=== PATIENT | female | born 1935 | race Caucasian/White ===

== ENCOUNTER 2016-07-26 08:49 | Emergency (ER) | payer OTHER ==
[~2016-07-26] VITALS: Ht 160 cm; Wt 55.1 kg
[~2016-07-26 08:49] MED LIST: ACET-1256 PO; ELQ25 PO; MAGN400T6 PO; MISCCAP; POTA99TA PO
[2016-07-26 08:58] VITALS: TEMP 36.6; Ht 160 cm; Wt 55.1 kg
[2016-07-26 09:33] LABS: MANUAL MICROSCOPIC REQUIRED? YES; URINE APPEARANCE SL CLOUDY (CLEAR); URINE BILIRUBIN NEG (NEG); URINE COLOR RED; URINE NITRITE NEG (NEG); URINE SPECIFIC GRAVITY >= 1.030 (1.000-1.030); UROBILINOGEN NEG (NEG)
[2016-07-26] MEDS ORDERED: B-CO1CAP17 PO (09:37)
[2016-07-26 09:38] LABS: REVIEW REQ? NO
[2016-07-26 09:42] LABS: URINE BACTERIA NEG (NEG); URINE RBC >30 /hpf (0-4); URINE WBC >30 /hpf (0-5)
[2016-07-26 09:43] LABS: ZZUR CULT IF INDIC CLEAN CATCH YES
[2016-07-26 10:22] LABS: BASO % 0.2 %; BASO ABS # 0.02 K/uL (0-0.2); COMPLETE YES; EOS % 0.3 %; HEMATOCRIT 41.7 % (37-47); IG% 0.1 %; LYMPH % 11.1 %; MEAN CORPUSCULAR HGB CONC 34.3 g/dl (32-36); MEAN PLATELET VOLUME 10.4 fL (7.4-10.4); MONO % 9.4 %; NEUT % 78.9 %; PLATELET COUNT 141 K/uL (130-400); RED BLOOD COUNT 4.21 M/uL (4.2-5.4); WHITE BLOOD COUNT 8.98 K/uL (4.8-10.8)
[2016-07-26 10:31] LABS: PARTIAL THROMBOPLASTIN RATIO 1.2
[2016-07-26 10:46] LABS: BUN/CREATININE RATIO 26.1 (10-20); CALCIUM 9.5 mg/dl (8.5-10.1); CREATININE 0.95 mg/dl (0.60-1.20); POTASSIUM 4.2 mmol/L (3.5-5.1)
--- NOTE | 2016-07-26 10:49 | DIAGNOSTIC IMAGING REPORT ---
CT OF THE ABDOMEN AND PELVIS WITHOUT CONTRAST, STONE PROTOCOL CLINICAL HISTORY: Mid abdominal pain and hematuria. Evaluate for stone. COMPARISON STUDY: CT of the abdomen and pelvis June 23, 2011. TECHNIQUE: Helical axial images of the abdomen and pelvis were obtained without IV or oral contrast according to renal stone protocol. FINDINGS: The heart is moderately enlarged. No renal, ureteral or bladder calculi are present. There is no hydronephrosis or hydroureter. A 7 mm suspected left renal cyst is unchanged since prior CT of June 23, 2011. Evaluation of the remainder of the abdomen and pelvis is suboptimal on this unenhanced exam. Nodularity of the left adrenal gland is unchanged. There is a calcification within the right hepatic lobe. The spleen and pancreas are unremarkable. There is no evidence for a bowel obstruction. There is colonic diverticulosis without evidence for acute diverticulitis. The appendix is normal. There is no abscess or lymphadenopathy. No suspicious osseous lesion is present. IMPRESSION: 1. No urinary calculi or hydronephrosis. 2. No acute process within the abdomen or pelvis on unenhanced exam. Electronically signed by: Rui Luciano M.D. 07/26/2016 10:48 AM Dictated Date/Time: 07/26/2016 10:41 AM
[2016-07-26] MEDS ORDERED: SULF800T23 PO (11:15)
[2016-07-26 11:49] VITALS: BP 150/72; PULSE 83; O2SAT 95
--- NOTE | 2016-07-26 17:12 | EMERGENCY ROOM VISIT NOTE ---
History Report prepared by Chrissy: Jarred Rain Under the Supervision of: Dr. Forrest Vargas M.D. First contact with patient: 09:44 Chief Complaint: URINARY SYMPTOMS Stated Complaint: BLOOD IN URINE Nursing Triage Summary: pt c/o blood in urine last 3x she urinated today and last night. states had pain a couple days ago none now, except upon urination History of Present Illness The patient is an 81 year old female who presents to the Emergency Room with complaints of persistent hematuria since last night. The patient has noticed blood in her urine every time she has went since onset. She also complains of burning with urination. The patient had sharp midline abdominal pain two days ago, which resolved on its own. She has not had the abdominal pain since. She denies any fevers, vomiting, black or bloody stools. The patient has never experienced hematuria before. She does not have a history of kidney stones. The patient takes Eliquis daily for atrial fibrillation. The patient is in good health otherwise. She does not currently have any other complaints. Source of History: patient Onset: last night Position: other (urinary) Quality: other (hematuria) Timing: other (persistent) Associated Symptoms: + abdominal pain, + urinary symptoms, No fevers, No hematochezia, No melena, No vomiting Review of Systems See HPI for pertinent positives & negatives. A total of 10 systems reviewed and were otherwise negative. 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 Surgical Problems: (1) History of tonsillectomy and adenoidectomy (2) History of varicose vein ligation Family History No pertinent family history Social History Smoking Status: Never Smoker Alcohol Use: none Marital Status: Occupation Status: retired Current/Historical Medications Scheduled Apixaban (Eliquis), 2.5 MG PO BID Magnesium Oxide (Mag-Ox), 400 MG PO Q2D Probiotic Product (Acidophilus High-Potency), DAILY Sulfa/Trimethoprim (Bactrim Ds 800MG/160MG), 1 TAB PO BID Vitamin B Cmplx/Vitc/Folic Ac (Nephrocaps), 1 CAP PO DAILY Scheduled PRN Acetaminophen (Tylenol), 1 TAB PO bid-tid PRN for Pain Allergies Coded Allergies: No Known Allergies (Unverified , 07/26/16) Physical Exam Vital Signs Date Time Temp Pulse Resp B/P Pulse Ox O2 Delivery O2 Flow Rate FiO2 07/26/16 11:49 83 150/72 95 07/26/16 10:39 78 18 141/87 98 Room Air 07/26/16 08:58 36.6 87 18 97 Room Air Physical Exam Constitutional: Vital signs reviewed. Eyes: Pupils are equal round reactive to light. Conjunctiva are noninjected. ENT: Pharynx is clear without erythema or exudate. Mucous membranes are moist. Neck supple without meningeal signs. Respiratory: Clear to auscultation bilaterally. Breath sounds are equal bilaterally. Cardiovascular: Irregularly irregular rhythm, normal rate. No rubs or gallops. GI: Soft, nondistended and nontender. Bowel sounds are present. Musculoskeletal: No peripheral edema. No CVA tenderness. Integumentary: No cyanosis. Neurological: The patient is awake and alert. No focal deficits. Psychiatric: Normal affect. Medical Decision & Procedures ER Provider Diagnostic Interpretation: CT results as stated below per my review and the radiologist's interpretation: CT OF THE ABDOMEN AND PELVIS WITHOUT CONTRAST, STONE PROTOCOL CLINICAL HISTORY: Mid abdominal pain and hematuria. Evaluate for stone. COMPARISON STUDY: CT of the abdomen and pelvis June 23, 2011. TECHNIQUE: Helical axial images of the abdomen and pelvis were obtained without IV or oral contrast according to renal stone protocol. FINDINGS: The heart is moderately enlarged. No renal, ureteral or bladder calculi are present. There is no hydronephrosis or hydroureter. A 7 mm suspected left renal cyst is unchanged since prior CT of June 23, 2011. Evaluation of the remainder of the abdomen and pelvis is suboptimal on this unenhanced exam. Nodularity of the left adrenal gland is unchanged. There is a calcification within the right hepatic lobe. The spleen and pancreas are unremarkable. There is no evidence for a bowel obstruction. There is colonic diverticulosis without evidence for acute diverticulitis. The appendix is normal. There is no abscess or lymphadenopathy. No suspicious osseous lesion is present. IMPRESSION: 1. No urinary calculi or hydronephrosis. 2. No acute process within the abdomen or pelvis on unenhanced exam. Electronically signed by: Rui Luciano M.D. 07/26/2016 10:48 AM Dictated Date/Time: 07/26/2016 10:41 AM Laboratory Results 07/26/16 10:00 Red Blood Count 4.21, Mean Corpuscular Volume 99.0, Mean Corpuscular Hemoglobin 34.0, Mean Corpuscular Hemoglobin Concent 34.3, Mean Platelet Volume 10.4, Neutrophils (%) (Auto) 78.9, Lymphocytes (%) (Auto) 11.1, Monocytes (%) (Auto) 9.4, Eosinophils (%) (Auto) 0.3, Basophils (%) (Auto) 0.2, Neutrophils # (Auto) 7.08, Lymphocytes # (Auto) 1.00, Monocytes # (Auto) 0.84, Eosinophils # (Auto) 0.03, Basophils # (Auto) 0.02 07/26/16 10:00 Test 07/26/16 09:08 07/26/16 10:00 Urine Color RED Urine Appearance SL CLOUDY (CLEAR) Urine pH 6.0 (4.5-7.5) Urine Specific [place] >= 1.030 (1.000-1.030) Urine Protein 2+ (NEG) Urine Glucose (UA) NEG (NEG) Urine Ketones NEG (NEG) Urine Occult Blood 3+ (NEG) Urine Nitrite NEG (NEG) Urine Bilirubin NEG (NEG) Urine Urobilinogen NEG (NEG) Urine Leukocyte Esterase TRACE (NEG) Urine RBC >30 /hpf (0-4) Urine WBC >30 /hpf (0-5) Urine Epithelial Cells 5-10 /lpf (0-5) Urine Bacteria NEG (NEG) White Blood Count 8.98 K/uL (4.8-10.8) Red Blood Count 4.21 M/uL (4.2-5.4) Hemoglobin 14.3 g/dL (12.0-16.0) Hematocrit 41.7 % (37-47) Mean Corpuscular Volume 99.0 fL (80-100) Mean Corpuscular Hemoglobin 34.0 pg (25-34) Mean Corpuscular Hemoglobin Concent 34.3 g/dl (32-36) Platelet Count 141 K/uL (130-400) Mean Platelet Volume 10.4 fL (7.4-10.4) Neutrophils (%) (Auto) 78.9 % Lymphocytes (%) (Auto) 11.1 % Monocytes (%) (Auto) 9.4 % Eosinophils (%) (Auto) 0.3 % Basophils (%) (Auto) 0.2 % Neutrophils # (Auto) 7.08 K/uL (1.4-6.5) Lymphocytes # (Auto) 1.00 K/uL (1.2-3.4) Monocytes # (Auto) 0.84 K/uL (0.11-0.59) Eosinophils # (Auto) 0.03 K/uL (0-0.5) Basophils # (Auto) 0.02 K/uL (0-0.2) RDW Standard Deviation 46.7 fL (36.4-46.3) RDW Coefficient of Variation 12.9 % (11.5-14.5) Immature Granulocyte % (Auto) 0.1 % Immature Granulocyte # (Auto) 0.01 K/uL (0.00-0.02) Prothrombin Time 11.0 SECONDS (9.0-12.0) Prothromb Time International Ratio 1.0 (0.9-1.1) Activated Partial Thromboplast Time 29.9 SECONDS (21.0-31.0) Partial Thromboplastin Ratio 1.2 Anion Gap 11.0 mmol/L (3-11) Est Creatinine Clear Calc Drug Dose 37.1 ml/min Estimated GFR () 64.2 Estimated GFR (Non- 55.4 BUN/Creatinine Ratio 26.1 (10-20) Calcium Level 9.5 mg/dl (8.5-10.1) Total Bilirubin 1.4 mg/dl (0.2-1) Direct Bilirubin 0.3 mg/dl (0-0.2) Aspartate Amino Transf (AST/SGOT) 33 U/L (15-37) Alanine Aminotransferase (ALT/SGPT) 20 U/L (12-78) Alkaline Phosphatase 93 U/L (45-117) Total Protein 7.5 gm/dl (6.4-8.2) Albumin 4.0 gm/dl (3.4-5.0) Lipase 196 U/L (73-393) Laboratory results as reviewed by me. ED Course 0947: The patient was evaluated in room B8. A complete history and physical exam was performed. 1105: Talked about the results with her. She will follow up with her doctor in Urology. 1116: Upon reevaluation, the patient appeared to have improvement of her symptoms. I discussed tonight's findings with her. She verbalized agreement of the treatment plan. She was discharged home. Medical Decision This is an 81-year-old female presents with hematuria and dysuria. Differential diagnosis includes urinary tract infection, kidney stone, renal mass, anemia, bladder mass. I did perform a limited focused review of portions of the patient's old chart on the electronic medical record. The patient has had no recent pertinent visits to this hospital. I did evaluate the patient as noted above. Patient is presenting with gross hematuria. She was on Eliquis for atrial fibrillation. She also has dysuria. She did complain of abdominal pain which was transient. She has no tenderness or pain at this time. IV access was established. I did order and personally review the patient's urinalysis as described above. A urine culture was sent. I did order and review the patient's blood work as noted in the electronic medical record. She is not anemic. Renal function is normal. I did order a CT of the abdomen and pelvis. I did review the images myself as well as the radiology report as described above. There is no evidence of kidney stone. I did discuss the incidental findings with her. I did discuss the test results with her. I did recommend treatment with antibiotics for her urinary symptoms. Should she have persistent dysuria and hematuria she will need follow up with urology and was referred to Dr. Renae. She was also advised to follow closely with her regular physician as well. She was discharged in good condition with a prescription for Bactrim. Impression Primary Impression: Hematuria Additional Impressions: UTI (urinary tract infection) Anticoagulated Scribe Attestation The scribe's documentation has been prepared under my direct and personally reviewed by me in its entirety. I confirm that the note above accurately reflects all work, treatment, procedures, and medical decision making performed by me. Departure Information Dispostion Home / Self-Care Prescriptions Sulfa/Trimethoprim (Bactrim Ds 800MG/160MG) Tab 1 TAB PO BID, #14 TAB Prov: Forrest Vargas M.D. 07/26/16 Referrals Tres Baires M.D. (PCP) Forms HOME CARE DOCUMENTATION FORM, IMPORTANT VISIT INFORMATION Patient Instructions A Signature Page, ED Hematuria, My [facility], Urinary Tract Infection - [facility] Additional Instructions You have been examined and treated today on an emergency basis only. This is not a substitute for, or an effort to provide, complete comprehensive medical care. It is impossible to recognize and treat all injuries or illnesses in a single emergency department visit. It is therefore important that you follow up closely with your physician and Dr. Renae of urology. Call as soon as possible for an appointment. Return for worsening symptoms or if you develop fever, vomiting, black or tarry stools, blood in your stools or any other concerning symptoms. Problem Qualifiers Additional Impressions: UTI (urinary tract infection) Urinary tract infection type: acute cystitis Hematuria presence: with hematuria Qualified Codes: N30.01 - Acute cystitis with hematuria
[2017-02-09] MEDS ORDERED: APIX1TAB PO (10:13)
[2017-02-09] MEDS ORDERED: CALC500C70 PO (10:13)
== END 2016-07-26 11:50 | disposition home or self-care (01) ==
LOC: C.EDB 08:50
DX: N39.0 Urinary tract infection, site not specified (principal); I48.91 Unspecified atrial fibrillation; Z79.01 Long term (current) use of anticoagulants; I10 Essential (primary) hypertension; M81.0 Age-related osteoporosis without current pathological fracture; Z87.01 Personal history of pneumonia (recurrent); I36.1 Nonrheumatic tricuspid (valve) insufficiency; Z79.899 Other long term (current) drug therapy

== ENCOUNTER → 2016-08-11 | Outpatient (CLI) | payer OTHER ==
[~2016-08-11] MED LIST changes: +APIX1TAB PO; +B-CO1CAP17 PO; +CALC500C70 PO; -POTA99TA PO; +SULF800T23 PO
[2016-08-11 11:25] LABS: URINE APPEARANCE CLOUDY (CLEAR); URINE BILIRUBIN NEG (NEG); URINE COLOR YELLOW; URINE EPITHELIAL CELL AUTO 20-30 /lpf (0-5); URINE NITRITE NEG (NEG); URINE SPECIFIC GRAVITY 1.021 (1.000-1.030); UROBILINOGEN NEG (NEG)
[2016-08-11 11:30] LABS: MANUAL MICROSCOPIC REQUIRED? NO; REVIEW REQ? YES
== END | disposition home or self-care (01) ==
LOC: C.LABBC 08:06
PROVIDERS: ATTEND Internal Medicine
DX: R39.9 Unspecified symptoms and signs involving the genitourinary system (principal)

== ENCOUNTER → 2016-12-20 | Outpatient (CLI) | payer OTHER ==
[2016-12-20 11:54] LABS: ALT/SGPT 26 U/L (12-78); AST/SGOT 36 U/L (15-37); BLOOD UREA NITROGEN 24 mg/dl (7-18); BUN/CREATININE RATIO 22.2 (10-20); CALCIUM 8.8 mg/dl (8.5-10.1); CARBON DIOXIDE 29 mmol/L (21-32); CHLORIDE 106 mmol/L (98-107); GLUCOSE 90 mg/dl (70-99); POTASSIUM 4.5 mmol/L (3.5-5.1); SODIUM 142 mmol/L (136-145)
[2016-12-20 12:12] LABS: ALB/GLOB RATIO 1.1 (0.9-2); ALKALINE PHOSPHATASE 103 U/L (45-117)
--- NOTE | 2016-12-27 10:57 | CODING QUERY MEDICAL NECESSITY ---
CQSUPPORTING DIAGNOSIS NEEDED A supporting diagnosis is required for the test/procedure performed on this patient in order for us to be reimbursed by the patient's insurance. Please provide a supporting diagnosis for the following test/procedure listed below next to the test name along with your signature. *If there is no additional diagnosis for this patient that would support the following test/procedure please document that below next to the test/procedure. Test(s)/Procedure(s) that require a supporting diagnosis: LAURA 12/20/16 VITAMIN D TEST Provider Signature: Date: Thank you Graciela Manning Health Information Management Once completed, please kindly fax back to [phone] For questions please call [phone]
== END ==
LOC: C.LABBC 08:57
PROVIDERS: ATTEND Internal Medicine
DX: I10 Essential (primary) hypertension (principal); M81.0 Age-related osteoporosis without current pathological fracture

== ENCOUNTER → 2017-02-20 | Outpatient (CLI) | payer OTHER ==
[~2017-02-20] MED LIST changes: -ELQ25 PO; -SULF800T23 PO
[2017-02-20 11:10] LABS: BASO % 0.5 %; BASO ABS # 0.02 K/uL (0-0.2); COMPLETE YES; EOS % 2.1 %; HEMATOCRIT 42.2 % (37-47); IG% 0.2 %; LYMPH % 29.8 %; LYMPH ABS # 1.27 K/uL (1.2-3.4); MEAN CORPUSCULAR HEMOGLOBIN 33.7 pg (25-34); MEAN CORPUSCULAR HGB CONC 33.4 g/dl (32-36); MEAN PLATELET VOLUME 11.2 fL (7.4-10.4); MONO % 13.1 %; NEUT % 54.3 %; PLATELET COUNT 143 K/uL (130-400); RED BLOOD COUNT 4.18 M/uL (4.2-5.4); WHITE BLOOD COUNT 4.26 K/uL (4.8-10.8)
[2017-02-20 12:28] LABS: CHOLESTEROL/HDL RATIO 2.4
== END | disposition home or self-care (01) ==
LOC: C.LABBC 08:14
PROVIDERS: ATTEND Internal Medicine
DX: E55.9 Vitamin D deficiency, unspecified (principal)

== ENCOUNTER → 2017-02-28 | Day surgery (SDC) | payer OTHER ==
[2017-02-09 10:13] VITALS: Ht 161.3 cm; Wt 55.0 kg
[~2017-02-28] VITALS: Ht 161.3 cm; Wt 55.0 kg
[~2017-02-28] MED LIST changes: +500ML BSS 0.3ML EPI 1:1000PF IRRIG ONE; +ACETAMINOPHEN 325 MG TAB PO PRN; +AMVISC PLUS 0.8ML SYRINGE INT OCU ONE; +ATROPINE SULFATE 0.1 MG/ML 5ML SYR IV PRN; +AcetaZOLAMIDE 250 MG TAB PO SCH; +BETAXOLOL HCL 0.25% OP SUSP PER DROP CHARGE OPL SCH; +BRIMONIDINE TART 0.2% OP SOLN PER DROP CHARGE ONE; +BSS FLUSH ONE; +ENDOCOAT 0.85ML SYRINGE INT OCU ONE; +EpHEDrine SULFATE INJ 50 MG/ML AMP IV PRN; +EpINEphrine INJ 1MG/ML AMP 1 MG/ML AMP ONE; +LACTATED RINGER'S 1000ML 500 ML IV SCH; +LIDOCAINE 4% OP SOLN DROP CHARGE ONE; +LIDOCAINE 4% OP SOLN DROP CHARGE OPL SCH; +LIDOCAINE HCL 1% MPF 2 ML VIAL ONE; +MIDAZOLAM HCL 1 MG/ML 2ML VIAL ONE; +MIX: 4ML BSS 1ML EPI 1:1000 PF INSTIL ONE; +MOXIFLOXACIN OPH SOLN PER DROP CHARGE ONE; +OCUCOAT 1 ML SOLN IO ONE; +ONDANSETRON INJ 2 MG/ML 2 ML VIAL IV PRN; +POVIDONE-IODINE OP SOLN 30 ML BTL ONE; +PROPARACAINE 0.5% OP SOLN PER DROP CHARGE OPL SCH; +TOBRAMYCIN/DEXAMETHASONE OPH OINT PER APPLN CHARGE ONE
[2017-02-28] MEDS: PHENYLEPHRINE HCL 2.5% OP SOLN PER DROP CHARGE OPL SCH ×2 (06:36→06:42)
--- NOTE | 2017-02-28 06:36 | History & Physical Bridge - SC ---
H&P Re-Evaluation Bridge Note: I have examined the patient, reviewed the History & Physical and in the interval since the performance of the History & Physical I have noted the following changes of clinical significance: No changes noted
[2017-02-28] MEDS: TROPICAMIDE 1% OP SOLN PER DROP CHARGE OPL SCH ×2 (06:37→06:43)
[2017-02-28] MEDS: CYCLOPENTOLATE HCL 1% OP SOLN PER DROP CHARGE OPL SCH ×2 (06:38→06:44)
[2017-02-28] MEDS: MOXIFLOXACIN OPH SOLN PER DROP CHARGE OPL SCH ×2 (06:39→07:10)
--- NOTE | 2017-02-28 07:16 | Discharge Instructions-SurgCtr ---
Discharge Instructions Date of Service Feb 28, 2017. Visit Reason for Visit: Cataract Left Eye Discharge Discharge Diagnosis / Problem: lens implant left eye Discharge Goals Goal(s): Improve function Activity Recommendations Activity Limitations: resume your previous activity Lifting Limitations: no more than 10 pounds Exercise/Sports Limitations: gradually increase as tolerated May Resume Sexual Activity: when tolerated Shower/Bathe: tomorrow Driving or Machine Use: resume 1 day after discharge Anesthesia . Post Anesthesia Instructions: If you have had General Anesthesia or IV Sedation: * Do not drive today. * Resume driving when surgeon permits. * Do not make important decisions or sign legal documents today. * Call surgeon for: 1. Temperature elevations greater than 101 degrees F. 2. Uncontrollable pain. 3. Excessive bleeding. 4. Persistent nausea and vomiting. 5. Medication intolerance (nausea, vomiting or rash). * For nausea and vomiting use only clear liquids such as: tea, soda, bouillon until nausea subsides, then gradually increase diet as tolerated. * If you have any concerns or questions, call your surgeon's office. If physician is unavailable and it is an emergency, call 911 or go to the nearest emergency room. . Instructions / Follow-Up Instructions / Follow-Up ACTIVITY RECOMMENDATIONS: * Light activities. * Mild irritation and blurred vision are common for the first few days. * You may walk outside, read, watch television. * Redness around the white part of the eye is common. MEDICATIONS: Resume previous medications unless instructed otherwise by your surgeon. * Take white Diamox (Acetazolamide) tablet at 1 pm today. Start all eye drops at 1 pm today: * Eye drops (today and tomorrow): Prednisone - one drop in operative eye every 3 hours while awake Ofloxacin - one drop in operative eye every 3 hours while awake SPECIAL CARE INSTRUCTIONS: * Tape plastic shield over eye to sleep at night. Call your doctor at with any concerns or problems. FOLLOW UP VISIT: Follow-up with Dr Wolfe at [place] office as scheduled. Diet Recommendations Home Diet: no limitations Procedures Procedures Performed: cataract extraction with lens implant Pending Studies Studies pending at discharge: no Medical Emergencies . Who to Call and When: Medical Emergencies: If at any time you feel your situation is an emergency, please call 911 immediately. . Non-Emergent Contact Non-Emergency issues call your: Pantomimist Call Non-Emergent contact if: your pain is not controlled [phone] . . "Provider Documentation" section prepared by Ivan Wolfe. .
[2017-02-28 07:20] VITALS: BP 137/72; PULSE 62; TEMP 36.5; O2SAT 96
--- NOTE | 2017-02-28 07:21 | [facility] Operative Report ---
Operative Report Date of Service Feb 28, 2017. Operative Report 1. PREOPERATIVE DIAGNOSIS: Senile cortical cataract, left eye. 2. POSTOPERATIVE DIAGNOSIS: Senile cortical cataract, left eye. 3. PROCEDURE: Phacoemulsification of left cataract with posterior chamber lens implant, type Bausch [employer] Lomb, model MI60L, power +22.50 diopters. ANESTHESIA: Local standby. SURGEON: Dr. Wolfe. COMPLICATIONS: None. OPERATING TIME: 10 minutes. 4. OPERATION AND FINDINGS: DESCRIPTION OF PROCEDURE: The left pupil was dilated. The anesthetic was administered using a topical technique. The left eye was prepped and draped. A speculum was placed. A clear corneal incision was formed. The chamber was filled with Amvisc Plus and Endocoat. Epinephrine solution was used. A paracentesis was placed. A capsulorrhexis was performed. The nucleus was hydrodissected. The lens was removed with phacoemulsification. Time was 3.41 seconds. The aspiration unit was used to remove the cortex. The capsule was filled with Amvisc Plus. The lens implant was folded and placed into the capsule. An astigmatic incision was placed at the limbus directly across from the original incision. The incisions were hydrated. The Amvisc was aspirated. The wounds were secure. The chamber was deep. The pupil was round. Brimonidine, TobraDex ointment and Vigamox solution were placed. The speculum was removed. The patient was returned to the Recovery Room in stable condition. I attest to the content of the Intraoperative Record and any orders documented therein. Any exceptions are noted below. The scribe's documentation has been prepared in my presence, under my direction and personally reviewed by me in its entirety. I confirm that the note above accurately reflects all work, treatment, procedures, and medical decision making performed by me. I personally scribed for Ivan Wolfe M.D. (JAREN) on 02/28/17 at 07:21. Electronically submitted by Tatiana Mcnulty ([email or web address]).
--- NOTE | 2017-02-28 07:52 | Anesthesiology Progress Note ---
Anesthesia Post Op Note Date & Time Feb 28, 2017 at 07:51 Vital Signs Pain Intensity: 0 Vital Signs Past 12 Hours Date Time Temp Pulse Resp B/P (MAP) Pulse Ox O2 Delivery O2 Flow Rate FiO2 02/28/17 07:20 36.5 62 12 137/72 (93) 96 Room Air 02/28/17 06:28 36.4 53 16 143/81 (101) 97 Room Air Notes Mental Status: alert / awake / arousable, participated in evaluation Pt Amnestic to Procedure: Yes Nausea / Vomiting: adequately controlled Pain: adequately controlled Airway Patency, RR, SpO2: stable & adequate BP & HR: stable & adequate Hydration State: stable & adequate Anesthetic Complications: no major complications apparent
== END | disposition home or self-care (01) ==
LOC: X.SURG 06:14
PROVIDERS: ATTEND Specialist
DX: H25.12 Age-related nuclear cataract, left eye (principal)

== ENCOUNTER → 2017-03-21 | Day surgery (SDC) | payer OTHER ==
[2017-03-12 09:26] VITALS: Ht 161.3 cm; Wt 55.0 kg
[~2017-03-21] VITALS: Ht 161.3 cm; Wt 55.0 kg
[~2017-03-21] MED LIST changes: -BETAXOLOL HCL 0.25% OP SUSP PER DROP CHARGE OPL SCH; +BETAXOLOL HCL 0.25% OP SUSP PER DROP CHARGE OPR SCH; -LIDOCAINE 4% OP SOLN DROP CHARGE OPL SCH; +LIDOCAINE 4% OP SOLN DROP CHARGE OPR SCH; -ONDANSETRON INJ 2 MG/ML 2 ML VIAL IV PRN; -PROPARACAINE 0.5% OP SOLN PER DROP CHARGE OPL SCH; +PROPARACAINE 0.5% OP SOLN PER DROP CHARGE OPR SCH
[2017-03-21] MEDS: PHENYLEPHRINE HCL 2.5% OP SOLN PER DROP CHARGE OPR SCH ×2 (06:45→06:50)
[2017-03-21] MEDS: TROPICAMIDE 1% OP SOLN PER DROP CHARGE OPR SCH ×2 (06:46→06:51)
[2017-03-21] MEDS: CYCLOPENTOLATE HCL 1% OP SOLN PER DROP CHARGE OPR SCH ×2 (06:47→06:52)
[2017-03-21] MEDS: MOXIFLOXACIN OPH SOLN PER DROP CHARGE OPR SCH ×2 (06:48→06:58)
--- NOTE | 2017-03-21 07:34 | Discharge Instructions-SurgCtr ---
Discharge Instructions Date of Service Mar 21, 2017. Visit Reason for Visit: Cataract Right Eye Discharge Discharge Diagnosis / Problem: lens implant right eye Discharge Goals Goal(s): Improve function Activity Recommendations Activity Limitations: resume your previous activity Lifting Limitations: no more than 10 pounds Exercise/Sports Limitations: gradually increase as tolerated May Resume Sexual Activity: when tolerated Shower/Bathe: tomorrow Driving or Machine Use: resume 1 day after discharge Anesthesia . Post Anesthesia Instructions: If you have had General Anesthesia or IV Sedation: * Do not drive today. * Resume driving when surgeon permits. * Do not make important decisions or sign legal documents today. * Call surgeon for: 1. Temperature elevations greater than 101 degrees F. 2. Uncontrollable pain. 3. Excessive bleeding. 4. Persistent nausea and vomiting. 5. Medication intolerance (nausea, vomiting or rash). * For nausea and vomiting use only clear liquids such as: tea, soda, bouillon until nausea subsides, then gradually increase diet as tolerated. * If you have any concerns or questions, call your surgeon's office. If physician is unavailable and it is an emergency, call 911 or go to the nearest emergency room. . Instructions / Follow-Up Instructions / Follow-Up ACTIVITY RECOMMENDATIONS: * Light activities. * Mild irritation and blurred vision are common for the first few days. * You may walk outside, read, watch television. * Redness around the white part of the eye is common. MEDICATIONS: Resume previous medications unless instructed otherwise by your surgeon. * Take white Diamox (Acetazolamide) tablet at 1 pm today. Start all eye drops at 1 pm today: * Eye drops (today and tomorrow): Prednisone - one drop in operative eye every 3 hours while awake Ofloxacin - one drop in operative eye every 3 hours while awake SPECIAL CARE INSTRUCTIONS: * Tape plastic shield over eye to sleep at night. Call your doctor at with any concerns or problems. FOLLOW UP VISIT: Follow-up with Dr Wolfe at [place] office as scheduled. Diet Recommendations Home Diet: no limitations Procedures Procedures Performed: cataract extraction with lens implant Pending Studies Studies pending at discharge: no Medical Emergencies . Who to Call and When: Medical Emergencies: If at any time you feel your situation is an emergency, please call 911 immediately. . Non-Emergent Contact Non-Emergency issues call your: Supervisory Cbp Officer Call Non-Emergent contact if: your pain is not controlled [phone] . . "Provider Documentation" section prepared by Ivan Wolfe. .
--- NOTE | 2017-03-21 07:37 | [facility] Operative Report ---
Operative Report Date of Service Mar 21, 2017. Operative Report 1. PREOPERATIVE DIAGNOSIS: Senile Cortical cataract, right eye. 2. POSTOPERATIVE DIAGNOSIS: Senile Cortical cataract, right eye. 3. PROCEDURE: Phacoemulsification of right cataract with posterior chamber lens implant, type Bausch [employer] Lomb, model MI60L, power +21.0 diopters. ANESTHESIA: Local standby. SURGEON: Dr. Wolfe. COMPLICATIONS: None. OPERATING TIME: 10 minutes. 4. OPERATION AND FINDINGS: DESCRIPTION OF PROCEDURE: The right pupil was dilated. The anesthetic was administered using a topical technique. The right eye was prepped and draped. A speculum was placed. A clear corneal incision was formed. The chamber was filled with Amvisc Plus and Endocoat. Epinephrine solution was used. A paracentesis was placed. A capsulorrhexis was performed. The nucleus was hydrodissected. The lens was removed with phacoemulsification. Time was 3.44 seconds. The aspiration unit was used to remove the cortex. The capsule was filled with Amvisc Plus. The lens implant was folded and placed into the capsule. The incision was hydrated. The Amvisc was aspirated. The wound was secure. The chamber was deep. The pupil was round. Brimonidine, TobraDex ointment and Vigamox solution were placed. The speculum was removed. The patient was returned to the Recovery Room in stable condition. I attest to the content of the Intraoperative Record and any orders documented therein. Any exceptions are noted below. The scribe's documentation has been prepared in my presence, under my direction and personally reviewed by me in its entirety. I confirm that the note above accurately reflects all work, treatment, procedures, and medical decision making performed by me. I personally scribed for Ivan Wolfe M.D. (JAREN) on 03/21/17 at 07:37. Electronically submitted by Tatiana Mcnulty ([email or web address]).
[2017-03-21 07:44] VITALS: TEMP 36.3
--- NOTE | 2017-03-21 07:49 | Anesthesia Progress Nt - [facility] ---
Anesthesia Post Op Note Date & Time Mar 21, 2017 at 07:48 Vital Signs Pain Intensity: 0 Vital Signs Past 12 Hours Date Time Temp Pulse Resp B/P (MAP) Pulse Ox O2 Delivery O2 Flow Rate FiO2 03/21/17 07:44 36.3 59 16 147/69 (95) 97 Room Air 03/21/17 06:34 36.9 58 22 169/82 (111) 97 Room Air 177/104 (128) Notes Mental Status: alert / awake / arousable, participated in evaluation Pt Amnestic to Procedure: Yes Nausea / Vomiting: adequately controlled Pain: adequately controlled Airway Patency, RR, SpO2: stable & adequate BP & HR: stable & adequate Hydration State: stable & adequate Anesthetic Complications: no major complications apparent
[2017-03-21 08:04] VITALS: BP 159/78; PULSE 57; O2SAT 98
== END | disposition home or self-care (01) ==
LOC: X.SURG 06:13
PROVIDERS: ATTEND Specialist
DX: H25.11 Age-related nuclear cataract, right eye (principal)

== ENCOUNTER → 2017-05-08 | Outpatient (CLI) | payer OTHER ==
[~2017-05-08] MED LIST changes: -500ML BSS 0.3ML EPI 1:1000PF IRRIG ONE; -ACETAMINOPHEN 325 MG TAB PO PRN; -AMVISC PLUS 0.8ML SYRINGE INT OCU ONE; -ATROPINE SULFATE 0.1 MG/ML 5ML SYR IV PRN; -AcetaZOLAMIDE 250 MG TAB PO SCH; -BETAXOLOL HCL 0.25% OP SUSP PER DROP CHARGE OPR SCH; -BRIMONIDINE TART 0.2% OP SOLN PER DROP CHARGE ONE; -BSS FLUSH ONE; -ENDOCOAT 0.85ML SYRINGE INT OCU ONE; -EpHEDrine SULFATE INJ 50 MG/ML AMP IV PRN; -EpINEphrine INJ 1MG/ML AMP 1 MG/ML AMP ONE; -LACTATED RINGER'S 1000ML 500 ML IV SCH; -LIDOCAINE 4% OP SOLN DROP CHARGE ONE; -LIDOCAINE 4% OP SOLN DROP CHARGE OPR SCH; -LIDOCAINE HCL 1% MPF 2 ML VIAL ONE; -MIDAZOLAM HCL 1 MG/ML 2ML VIAL ONE; -MIX: 4ML BSS 1ML EPI 1:1000 PF INSTIL ONE; -MOXIFLOXACIN OPH SOLN PER DROP CHARGE ONE; -OCUCOAT 1 ML SOLN IO ONE; -POVIDONE-IODINE OP SOLN 30 ML BTL ONE; -PROPARACAINE 0.5% OP SOLN PER DROP CHARGE OPR SCH; -TOBRAMYCIN/DEXAMETHASONE OPH OINT PER APPLN CHARGE ONE
--- NOTE | 2017-05-08 15:17 | MAMMOGRAPHY REPORT ---
BILATERAL DIGITAL SCREENING MAMMOGRAM WITH CAD: 05/08/2017 CLINICAL HISTORY: Routine screening. TECHNIQUE: Bilateral CC, MLO and repeat left cc views were obtained. Current study was also evaluate d with a Computer Aided Detection (CAD) system. COMPARISON: Comparison is made to exams dated: 12/07/2015 mammogram, 05/19/2011 mammogram, 07/31/2006 m ammogram, and 08/16/2004 mammogram - [facility]. BREAST COMPOSITION: There are scattered areas of fibroglandular density in both breasts. FINDINGS: There are moderate vascular calcifications in both breasts. No suspicious mass, ui architect ural distortion or cluster of microcalcifications is seen. IMPRESSION: ACR BI-RADS CATEGORY 2: BENIGN There is no mammographic evidence of malignancy. A 1 year screening mammogram is recommended. The pa tient will receive written notification of the results. Approximately 10% of breast cancers are not detected with mammography. A negative mammographic report should not delay biopsy if a clinically suggestive mass is present. Anjali Watts M.D. ay/:05/08/2017 14:02:12 Recorder Of Deeds: [place] BAH(Linda)(M), [facility] letter sent: Normal 1/2 BI-RADS Code: ACR BI-RADS Category 2: Benign
== END | disposition home or self-care (01) ==
LOC: C.MAMM 08:40
PROVIDERS: ATTEND Internal Medicine
DX: Z12.31 Encounter for screening mammogram for malignant neoplasm of breast (principal)

== ENCOUNTER → 2017-10-02 | Outpatient (CLI) | payer OTHER ==
[2017-10-02 13:08] LABS: BASO % 0.4 %; BASO ABS # 0.02 K/uL (0-0.2); EOS % 1.6 %; EOS ABS # 0.07 K/uL (0-0.5); HEMATOCRIT 42.1 % (37-47); LYMPH % 30.9 %; LYMPH ABS # 1.38 K/uL (1.2-3.4); MEAN CELL VOLUME 99.5 fL (80-100); MEAN CORPUSCULAR HEMOGLOBIN 33.1 pg (25-34); MEAN CORPUSCULAR HGB CONC 33.3 g/dl (32-36); MONO % 11.6 %; MONO ABS # 0.52 K/uL (0.11-0.59); NEUT % 55.5 %; NEUT ABS # 2.48 K/uL (1.4-6.5); PLATELET COUNT 148 K/uL (130-400); RED CELL DISTRIBUTION WIDTH CV 13.5 % (11.5-14.5); RED CELL DISTRIBUTION WIDTH SD 48.9 fL (36.4-46.3); WHITE BLOOD COUNT 4.47 K/uL (4.8-10.8)
[2017-10-02 14:05] LABS: ALBUMIN 3.8 gm/dl (3.4-5.0); AST/SGOT 30 U/L (15-37); BLOOD UREA NITROGEN 31 mg/dl (7-18); CARBON DIOXIDE 28 mmol/L (21-32); GLUCOSE 96 mg/dl (70-99); POTASSIUM 4.5 mmol/L (3.5-5.1); SODIUM 139 mmol/L (136-145)
[2017-10-02 14:08] LABS: ALKALINE PHOSPHATASE 81 U/L (45-117); ALT/SGPT 18 U/L (12-78); TOTAL PROTEIN 7.7 gm/dl (6.4-8.2)
== END | disposition home or self-care (01) ==
LOC: C.LABBC 10:07
PROVIDERS: ATTEND Family Medicine Adult Medicine
DX: R05 Cough (principal); R11.10 Vomiting, unspecified

== ENCOUNTER → 2018-02-26 | Outpatient (CLI) | payer OTHER ==
[~2018-02-26] MED LIST changes: -B-CO1CAP17 PO; +B-COCAP2 PO
[2018-02-26 10:35] LABS: BASO % 0.2 %; BASO ABS # 0.01 K/uL (0-0.2); EOS % 1.5 %; EOS ABS # 0.07 K/uL (0-0.5); HEMATOCRIT 41.9 % (37-47); HEMOGLOBIN 13.9 g/dL (12.0-16.0); IG# 0.01 K/uL (0.00-0.02); LYMPH % 24.3 %; LYMPH ABS # 1.11 K/uL (1.2-3.4); MEAN CORPUSCULAR HEMOGLOBIN 33.2 pg (25-34); MEAN CORPUSCULAR HGB CONC 33.2 g/dl (32-36); MEAN PLATELET VOLUME 11.3 fL (7.4-10.4); MONO % 12.9 %; MONO ABS # 0.59 K/uL (0.11-0.59); NEUT % 60.9 %; NEUT ABS # 2.77 K/uL (1.4-6.5); PLATELET COUNT 145 K/uL (130-400); RED CELL DISTRIBUTION WIDTH CV 13.7 % (11.5-14.5); RED CELL DISTRIBUTION WIDTH SD 49.5 fL (36.4-46.3); WHITE BLOOD COUNT 4.56 K/uL (4.8-10.8)
[2018-02-26 10:55] LABS: ALBUMIN 3.6 gm/dl (3.4-5.0); ALKALINE PHOSPHATASE 70 U/L (45-117); ALT/SGPT 23 U/L (12-78); AST/SGOT 35 U/L (15-37); BLOOD UREA NITROGEN 26 mg/dl (7-18); CALCIUM 9.2 mg/dl (8.5-10.1); CARBON DIOXIDE 29 mmol/L (21-32); CHOLESTEROL 188 mg/dl (0-200); CREATININE 1.09 mg/dl (0.60-1.20); GLUCOSE 96 mg/dl (70-99); LDL CHOLESTEROL CALCULATED 102 mg/dl; POTASSIUM 4.3 mmol/L (3.5-5.1); SODIUM 140 mmol/L (136-145); TOTAL PROTEIN 7.6 gm/dl (6.4-8.2)
== END | disposition home or self-care (01) ==
LOC: C.LABBC 08:01
PROVIDERS: ATTEND Internal Medicine
DX: M81.0 Age-related osteoporosis without current pathological fracture (principal); I10 Essential (primary) hypertension; Z79.01 Long term (current) use of anticoagulants; I48.2 Chronic atrial fibrillation; D75.89 Other specified diseases of blood and blood-forming organs; N28.9 Disorder of kidney and ureter, unspecified; I42.2 Other hypertrophic cardiomyopathy; M46.92 Unspecified inflammatory spondylopathy, cervical region; E55.9 Vitamin D deficiency, unspecified

== ENCOUNTER 2022-04-26 17:03 | Observation (INO) ==
[2022-04-26 17:54] LABS: Basophils # (auto) 0.03 K/uL (0-0.2); Basophils % (auto) 0.3 %; Eosinophils # (auto) 0.07 K/uL (0-0.50); Eosinophils % (auto) 0.8 %; Hematocrit (blood only) 39.3 % (34.1-44.9); Hemoglobin 13.2 g/dl (12.0-16.0); Immature Granulocytes # (auto) 0.03 K/uL (0.00-0.02); Immature Granulocytes % (auto) 0.3 %; Lymphocytes # (auto) 1.47 K/uL (1.2-3.4); Lymphocytes % (auto) 17.1 %; Mean Corpuscular Hemoglobin 32.9 pg (25.0-34.0); Mean Corpuscular Hgb Conc 33.6 g/dL (32.0-36.0); Mean Platelet Volume 10.6 fL (9.4-12.3); Monocytes # (auto) 0.93 K/uL (0.24-0.82); Monocytes % (auto) 10.8 %; Neutrophils # (auto) 6.08 K/uL (1.4-6.5); Neutrophils % (auto) 70.7 %; Platelet Count 163 K/uL (130-400); RDW Coefficient of Variation 13.9 % (11.5-14.5); RDW Standard Deviation 50.7 fL (36.4-46.3); Red Blood Count 4.01 M/uL (3.93-5.22); White Blood Count 8.61 K/ul (4.8-10.8)
[2022-04-26 18:08] LABS: INR 1.1 (0.9-1.1); Partial Thromboplastin Ratio 0.9; Partial Thromboplastin Time 25.4 Seconds (21.0-31.0); Prothrombin Time 11.5 Seconds (9.0-12.0)
[2022-04-26 18:19] LABS: Albumin Globulin Ratio 1.2 (0.9-2); BUN Creatinine Ratio 29.2 (10-20); Bilirubin,Total 1.4 mg/dl (0.2-1.0); Calcium 9.3 mg/dl (8.5-10.1); Creatinine Clr Calc Pharmacy 36.8 ml/min; Est GFR (African American) 67.1 ml/min; Est GFR (Non-African American) 57.9 ml/min; Globulin 3.4 gm/dl (2.5-4.0); Potassium 4.2 mmol/L (3.5-5.1); Total Protein 7.4 gm/dl (6.0-8.3)
[2022-04-26 18:22] LABS: Troponin I High Sensitivity 13.6 pg/ml (0-14)
--- NOTE | 2022-04-26 19:17 | XRay Report ---
XR chest 1V portable CLINICAL HISTORY: cp TECHNIQUE: Single frontal radiograph of the chest was obtained. Comparison: Comparison is made to chest radiograph 02/23/2022 FINDINGS: No lines and tubes are seen. Cardiomegaly is noted. Calcified aortic knob is seen. The lungs are stef r. There is blunting of the left costophrenic angle. IMPRESSION: Blunting of the left costophrenic angle may represent scarring or trace effusion. Otherwise no acute abnormalities. Redemonstration of marked cardiomegaly. ACT 112: Negative or not required by law. Electronically signed by: Eulalio Anderson M.D. 04/26/2022 7:16 PM
--- NOTE | 2022-04-26 21:56 | History & Physical Report ---
Date of Service April 26, 2022 Assessment & Plan (1) Chest pain: Plan: Patient is an 86 yo female with PMHx of cognitive decline, CKD III, chronic venous insufficiency, Lyme disease, atrial fibrillation on chronic anticoagulation, left atrial thrombus, LVH, HTN, and UTI admitted to [facility] on 04/26/22 due to chest pain with abnormal EKG. Chest Pain with Abnormal EKG - Patient is hemodynamically stable; currently asymptomatic - EKG 04/26/22: afib rate 84, ST depression and inverted T waves in the inferior leads, and LVH. These changes are new compared to last EKG February 2022. - Recent echo 02/23/22: mild to moderate concentric hypertrophy with more significant hypertrophy in the apex consistent with apical HCM. LV systolic function is normal with EF 60-65%. Left ventricular wall motion is normal. Mild aortic regurg. Mild to moderate pulmonic valvular regurg. MIldly elevated pulmonary artery end-diastolic pressure. Moderate mitral regurg. Left atrium is severely dilated. Moderate to severe tricuspid regurg. Right atrium is moder ately dilated. Right ventricular systolic pressure is elevated at 30-40 mmHg. - Will repeat echo given new onset CP and EKG changes - Last lipid profile 01/31/21: total cholesterol 199, LDL 112, HDL 76, triglycerides 57. - Repeat lipid profile ordered for tomorrow morning. - Troponin negative on admission. Will recheck x1. - Will admit patient to tele for continuous cardiac monitoring - Cardiology consulted Atrial Fibrillation - On Eliquis 2.5mg po BID - Will hold on admission in case intervention is needed tomorrow Pre-diabetes - HgbA1c 6.4% on 03/30/22 - Continue to monitor as outpatient CKD III - Baseline eGFR 53.9 mL/min - eGFR 57.9 on admission - Plan is to continue to follow with PCP and outpatient labs - Encourage patient to stay hydrated - Monitor BMP Cognitive Decline - Continue home rivastigmine FENGI: NPO at midnight DVT ppx: Anticoagulated with home Eliquis; holding on admission Dispo: Admit to tele Code status: FULL CODE (2) Abnormal EKG: (3) Pre-diabetes: (4) Atrial fibrillation: (5) Current use of nursing home anticoagulation: (6) Cognitive impairment: History of Present Illness Primary Care Provider: Tres Baires MD Patient is an 86 yo female with PMHx of cognitive decline, CKD III, chronic venous insufficiency, Lyme disease, atrial fibrillation on chronic anticoagulation, left atrial thrombus, LVH, HTN, and UTI who presented to [facility] on 04/26/22 accompanied by her daughter due to concerns of chest pain. Patient states that for the past 3 days, she has had intermittent episodes of mild substernal chest pain. The pain lasts from a couple seconds to 1 hour. Daughter notes that patient had about 6-8 episodes today with each of those episodes lasting just a couple seconds. There is no associated dyspnea. She has not had any syncopal episodes. Patient denies hx of similar episodes of pain. She denies recent viral illness. Denies fever, chills, decreased appetite, SOB, orthopnea, abdominal pain, nausea, vomiting, changes in bowel habits, urinary symptoms (including dysuria, hematuria, urinary frequency, or urinary retention), headache, lightheaded, dizziness, weakness, lower extremity pain, or lower extremity swelling. It is noted that patient recently had a 30+ day cardiac event monitor. On record review, this monitor showed atrial fibrillation with controlled rates; no other acute findings. Her primary wet cleaner machine in Dr. Paredes. In the ER, EKG was performed which showed afib rate 84, ST depression and inverted T waves in the inferior leads, and LVH. These changes are new compared to last EKG February 2022. Labs are unremarkable. No leukocytosis. No anemia. No electrolyte abnormalities. Normal hs-troponin. COVID negative. Allergies Allergy/AdvReac Type Severity Reaction Status Date / Time donepezil AdvReac Mild Nausea Verified 04/26/22 19:21 risedronate sodium AdvReac Unknown Unknown Verified 04/26/22 19:21 [From Actonel] Home Medications Medication Instructions Recorded Confirmed Type acetaminophen 500 mg tablet 500 mg PO Q6H PRN pain #90 tabs 09/18/19 04/26/22 Rx (Acetaminophen Extra Strength) calcium carbonate 600 mg calcium 600 mg PO BID #60 tabs 02/07/21 04/26/22 Rx (1,500 mg) tablet magnesium 200 mg tablet 400 mg PO DAILY #60 tabs 02/08/21 04/26/22 Rx apixaban 2.5 mg tablet 2.5 mg PO BID #180 tabs 06/27/21 04/26/22 Rx cholecalciferol (vitamin D3) 50 50 mcg PO DAILY #90 caps 02/13/22 04/26/22 Rx mcg (2,000 unit) capsule rivastigmine 13.3 mg/24 hour 13.3 mg transdermal DAILY #30 ea 04/25/22 04/26/22 Rx transdermal patch (Exelon Patch) alendronate 70 mg tablet 70 mg PO WK 04/26/22 04/26/22 History metoprolol tartrate 25 mg tablet 12.5 mg PO DAILY 1 month #15 tabs 04/27/22 Rx Past Med/Surg History Medical History Arthritis Carpal tunnel syndrome Cervical arthritis Cervical facet syndrome Chest discomfort CKD (chronic kidney disease), stage III Edema Hand pain Hypertension Hypertension Left atrial enlargement Left atrial thrombus Macrocytosis Mitral valve insufficiency, acquired Osteoporosis Osteoporosis Permanent atrial fibrillation Poison vanessa dermatitis Tricuspid regurgitation Vitamin D deficiency Surgical History H/O colonoscopy H/O ligation of vein History of facelift History of tonsillectomy and adenoidectomy Family History Family/Other ASCVD (arteriosclerotic cardiovascular disease) Brother , Age 58 Stroke Brother , Age 71 Stroke Denies family history of Ovarian cancer Prostate cancer Myocardial infarction Breast cancer Colorectal cancer Social History Smoking Status: Never smoker Second Hand Exposure: No; Hx Alcohol Use: No Hx Substance Use: No Preferred Language: Stateless Communication Ability: Effective Visual Impairment: No Limitations Hearing Ability: Normal Liquid Yeast Supervisor Required: No Beliefs That Will Affect Care: None marital status: / Current Living Situation: Alone current occupational status: retired How many Children do You have: 5 Feels Safe at Home: Yes Safety Concerns: Feels Safe At This Time Childhood Exposure to Second-Hand Smoke: No caffeine: Yes during the past year weight has: remained stable Dental Care, Regularly: Yes Physical Activity Frequency: Daily Seatbelt Use: always Sunscreen Use: Yes Assistive Devices: None Review of Systems Review of Systems: See HPI Physical Exam Physical Exam: GENERAL: No acute distress. Well developed and well nourished. Vital signs reviewed as above. EYES: PERRLA. EOMI. Anicteric sclerae. HENT: Moist mucous membranes. No pharyngeal erythema or exudates. RESPIRATORY: Clear to auscultation bilaterally. No wheezing, rales, or rhonchi. CARDIOVASCULAR: Regular rate. Irregularly irregular rhythm. + murmur. No JVD. ABDOMEN: Soft, non-tender and non-distended. Normal bowel sounds. EXTREMITIES: No edema. Non-tender. SKIN: Warm, dry. NEUROLOGIC: A/O x3. Normal speech. No focal neurological deficits. CN II-XII grossly intact. 5/5 strength in BUE and BLE. PSYCHIATRIC: Cooperative. Appropriate mood and affect. Results & Data Results & Data ([facility]) Vital Signs (Past 12 Hours) Vital Signs Temp Pulse Resp BP Pulse Ox O2 Del Method 04/26/22 17:13 36.4 C L 88 16 160/75 H 98 Room Air Laboratory Results 04/26/22 04/26/22 04/26/22 Range/Units 19:15 17:40 17:40 WBC (4.8-10.8) K/ul RBC (3.93-5.22) M/uL Hgb (12.0-16.0) g/dl Hct (34.1-44.9) % MCV (80.0-100.0) fL MCH (25.0-34.0) pg MCHC (32.0-36.0) g/dL RDW Std Deviation (36.4-46.3) fL RDW Coeff of Apple (11.5-14.5) % Plt Count (130-400) K/uL MPV (9.4-12.3) fL Immature Gran % (Auto) % Neut % (Auto) % Lymph % (Auto) % [place] % (Auto) % Eos % (Auto) % Baso % (Auto) % Neut # (Auto) (1.4-6.5) K/uL Lymph # (Auto) (1.2-3.4) K/uL [place] # (Auto) (0.24-0.82) K/uL Eos # (Auto) (0-0.50) K/uL Baso # (Auto) (0-0.2) K/uL Immature Gran # (Auto) (0.00-0.02) K/uL PT 11.5 (9.0-12.0) Seconds INR 1.1 (0.9-1.1) APTT 25.4 (21.0-31.0) Seconds PTT Ratio 0.9 Sodium 136 (136-145) mmol/L Potassium 4.2 (3.5-5.1) mmol/L Chloride 103 (98-107) mmol/L Carbon Dioxide 26 (21-32) mmol/L Anion Gap 7 (3-11) BUN 26 H (6-23) mg/dl Creatinine 0.89 (0.6-1.2) mg/dl Est Cr Clr Drug Dosing 36.8 ml/min Est GFR ( Amer) 67.1 ml/min Est GFR (Non-Af Amer) 57.9 ml/min BUN/Creatinine Ratio 29.2 H (10-20) Glucose 103 H (70-99(Fasting)) mg/dl Calcium 9.3 (8.5-10.1) mg/dl Total Bilirubin 1.4 H (0.2-1.0) mg/dl AST 27 (13-39) U/L ALT 12 (7-52) U/L Alkaline Phosphatase 57 (34-104) U/L Troponin I High Sens 13.6 (0-14) pg/ml Total Protein 7.4 (6.0-8.3) gm/dl Albumin 4.0 (3.4-5.0) gm/dl Globulin 3.4 (2.5-4.0) gm/dl Albumin/Globulin Ratio 1.2 (0.9-2) SARS-CoV-2, RNA, NAAT NEGATIVE (NEGATIVE) 04/26/22 Range/Units 17:40 WBC 8.61 (4.8-10.8) K/ul RBC 4.01 (3.93-5.22) M/uL Hgb 13.2 (12.0-16.0) g/dl Hct 39.3 (34.1-44.9) % MCV 98.0 (80.0-100.0) fL MCH 32.9 (25.0-34.0) pg MCHC 33.6 (32.0-36.0) g/dL RDW Std Deviation 50.7 H (36.4-46.3) fL RDW Coeff of Apple 13.9 (11.5-14.5) % Plt Count 163 (130-400) K/uL MPV 10.6 (9.4-12.3) fL Immature Gran % (Auto) 0.3 % Neut % (Auto) 70.7 % Lymph % (Auto) 17.1 % [place] % (Auto) 10.8 % Eos % (Auto) 0.8 % Baso % (Auto) 0.3 % Neut # (Auto) 6.08 (1.4-6.5) K/uL Lymph # (Auto) 1.47 (1.2-3.4) K/uL [place] # (Auto) 0.93 H (0.24-0.82) K/uL Eos # (Auto) 0.07 (0-0.50) K/uL Baso # (Auto) 0.03 (0-0.2) K/uL Immature Gran # (Auto) 0.03 H (0.00-0.02) K/uL PT (9.0-12.0) Seconds INR (0.9-1.1) APTT (21.0-31.0) Seconds PTT Ratio Sodium (136-145) mmol/L Potassium (3.5-5.1) mmol/L Chloride (98-107) mmol/L Carbon Dioxide (21-32) mmol/L Anion Gap (3-11) BUN (6-23) mg/dl Creatinine (0.6-1.2) mg/dl Est Cr Clr Drug Dosing ml/min Est GFR ( Amer) ml/min Est GFR (Non-Af Amer) ml/min BUN/Creatinine Ratio (10-20) Glucose (70-99(Fasting)) mg/dl Calcium (8.5-10.1) mg/dl Total Bilirubin (0.2-1.0) mg/dl AST (13-39) U/L ALT (7-52) U/L Alkaline Phosphatase (34-104) U/L Troponin I High Sens (0-14) pg/ml Total Protein (6.0-8.3) gm/dl Albumin (3.4-5.0) gm/dl Globulin (2.5-4.0) gm/dl Albumin/Globulin Ratio (0.9-2) SARS-CoV-2, RNA, NAAT (NEGATIVE) Diagnostic Findings [facility] [place] [phone] XRay Report Patient:COOKIE MALDONADO Admit Date:04/26/22 MR#:[id number] Address1:[address] Acct ID:[id number] Address2: Date:[address] [facility] Zip:[place] [address] Age:86 Location:ED Sex:F Room/Bed: Att Phy: Diagnosis:CHEST PAIN Reema Phy:Tres Baires MD Service Date:04/26/22 [facility] Phy: Interpreting Phy:Eulalio Anderson MDAdmit Phy: Ordering Phy:Jb Gaviria MD cc: ~ XR chest 1V portable CLINICAL HISTORY: cp TECHNIQUE: Single frontal radiograph of the chest was obtained. Comparison: Comparison is made to chest radiograph 02/23/2022 FINDINGS: No lines and tubes are seen. Cardiomegaly is noted. Calcified aortic knob is seen. The lungs are clear. There is blunting of the left costophrenic angle. IMPRESSION: Blunting of the left costophrenic angle may represent scarring or trace effusion. Otherwise no acute abnormalities. Redemonstration of marked cardiomegaly. ACT 112: Negative or not required by law. Electronically signed by: Eulalio Anderson M.D. 04/26/2022 7:16 PM Dictated:04/26/221914 Transcribed: 04/26/221914 Supervising Physician Co-Signing Physician Notes Attending addendum: I have physically seen this patient, have supervised the medical residents activities, and agree with the H&P unless as otherwise noted. Assessment and Plan: Chest pain/abnormal EKG/atrial fibrillation- ST-T wave changes inferiorly and laterally The patient will be admitted to telemetry for serial cardiac enzymes, serial EKG's, cardiac rhythm monitoring and a 2-D echocardiogram with Dopplers. Initial troponin normal Hold Eliquis if anti-DNA is not therapeutic and start heparin drip Continue metoprolol tartrate Continue aspirin Consult cardiology Prediabetes- Most recent A1c on 03/30/2022 was 6.4 Placed on Accu-Cheks with NovoLog coverage per scale CKD stage III- GFR 57.9 with baseline 53.9, follow BMP serially Remaining orders and notations as noted Resident Activity Tracking Resident Involvement: Resident Care Provided Care Provided: Adult Hospital Medicine (1) Atrial fibrillation Atrial fibrillation type: permanent Qualified Code(s): I48.21 - Permanent atrial fibrillation (2) Chest pain Chest pain type: unspecified Qualified Code(s): R07.9 - Chest pain, unspecified
--- NOTE | 2022-04-26 23:13 | Emergency Department Note ---
History of Present Illness General Chief Complaint: Arrhythmia/Palpitations Stated Complaint: CHEST PAIN Time Seen by Provider: 04/26/22 18:45 Source: family (daughter) History of Present Illness Provider Complaint: chest pain Onset (ago): day(s) 3 Duration: intermittent Onset: during rest Pain Location: substernal Pain Radiation: none Severity: mild Current Pain Intensity: 0 Quality: + aching, + sharp and + dull Relieved By: + nothing Exacerbated By: + nothing Context: no recent illness, no recent surgery, no recent immobilization, no recent travel, no trauma/injury, no new medications or no history of DVT/PE Associated symptoms: + palpitations; no nausea, no vomiting, no diaphoresis, no dyspnea, no syncope, no fever, no cough or no leg swelling Home Medications Medication Instructions Recorded Confirmed Type acetaminophen 500 mg tablet 500 mg PO Q6H PRN pain #90 tabs 09/18/19 04/26/22 Rx (Acetaminophen Extra Strength) calcium carbonate 600 mg calcium 600 mg PO BID #60 tabs 02/07/21 04/26/22 Rx (1,500 mg) tablet magnesium 200 mg tablet 400 mg PO DAILY #60 tabs 02/08/21 04/26/22 Rx apixaban 2.5 mg tablet 2.5 mg PO BID #180 tabs 06/27/21 04/26/22 Rx cholecalciferol (vitamin D3) 50 50 mcg PO DAILY #90 caps 02/13/22 04/26/22 Rx mcg (2,000 unit) capsule rivastigmine 13.3 mg/24 hour 13.3 mg transdermal DAILY #30 ea 04/25/22 04/26/22 Rx transdermal patch (Exelon Patch) alendronate 70 mg tablet 70 mg PO WK 04/26/22 04/26/22 History Allergies Allergy/AdvReac Type Severity Reaction Status Date / Time donepezil AdvReac Mild Nausea Verified 04/26/22 19:21 risedronate sodium AdvReac Unknown Unknown Verified 04/26/22 19:21 [From Actonel] Past Med/Surg History Medical History Arthritis Carpal tunnel syndrome Cervical arthritis Cervical facet syndrome Chest discomfort CKD (chronic kidney disease), stage III Edema Hand pain Hypertension Hypertension Left atrial enlargement Left atrial thrombus Macrocytosis Mitral valve insufficiency, acquired Osteoporosis Osteoporosis Permanent atrial fibrillation Poison vanessa dermatitis Tricuspid regurgitation Vitamin D deficiency Surgical History H/O colonoscopy H/O ligation of vein History of facelift History of tonsillectomy and adenoidectomy Family History Family/Other ASCVD (arteriosclerotic cardiovascular disease) Brother , Age 58 Stroke Brother , Age 71 Stroke Denies family history of Ovarian cancer Prostate cancer Myocardial infarction Breast cancer Colorectal cancer Social History Smoking Status: Never smoker Second Hand Exposure: No; Hx Alcohol Use: Yes (daily) Alcohol type: wine Alcohol Intake Frequency: 4 or More x per/Week Hx Substance Use: No Preferred Language: Mohawk Communication Ability: Effective Visual Impairment: No Limitations Hearing Ability: Normal Machine Iii Coremaker Required: No marital status: / Current Living Situation: Alone current occupational status: retired How many Children do You have: 5 Feels Safe at Home: Yes Childhood Exposure to Second-Hand Smoke: No caffeine: Yes during the past year weight has: remained stable Dental Care, Regularly: Yes Physical Activity Frequency: Daily Seatbelt Use: always Sunscreen Use: Yes Review of Systems Unobtainable due to cognitive status Physical Exam Vital Signs Vital Signs - 24 hr 04/26/22 17:13 04/26/22 19:04 04/26/22 19:04 Temperature 36.4 C L Temperature Source Temporal Artery Scan Pulse Rate 88 Respiratory Rate 16 Respiratory Effort / Characteristics Non-Labored Non-Labored Respiratory Depth Normal Normal Blood Pressure 160/75 H Blood Pressure Mean 103 Pulse Oximetry 98 99 Oxygen Delivery Method Room Air Room Air Room Air Sepsis Recent Fever Within 48 Hours No Sepsis New/Unexplained Change in Mental Status No Sepsis Action Taken by Nursing No Action Required 04/26/22 19:04 Temperature Temperature Source Pulse Rate Respiratory Rate Respiratory Effort / Characteristics Respiratory Depth Blood Pressure Blood Pressure Mean Pulse Oximetry 99 Oxygen Delivery Method Room Air Sepsis Recent Fever Within 48 Hours Sepsis New/Unexplained Change in Mental Status Sepsis Action Taken by Nursing Physical Exam GENERAL: She does not appear distressed. HENT: Exam performed. -Head: Normocephalic and atraumatic. -Right Ear: External ear normal. No mastoid tenderness. -Left Ear: External ear normal. No mastoid tenderness. -Mouth/Throat: The oropharynx is clear and moist. No trismus in the jaw. No dental abscesses or uvula swelling. No oropharyngeal exudate or tonsillar abscesses. EYES: Conjunctivae and EOM are normal. Pupils are equal, round, and reactive to light. Right eye exhibits no discharge. Left eye exhibits no discharge. No scleral icterus. NECK: Normal range of motion. Neck supple. No JVD present. No spinous process tenderness present. No carotid bruit present. No rigidity. No tracheal deviation and normal range of motion present. No Brudzinski's sign and no Kernig's sign noted. CV: Normal rate, irregular rhythm, normal heart sounds and intact distal pulses. There is no peripheral edema. Palpable radial pulses bue. PULM/CHEST: Effort normal and breath sounds normal. No respiratory distress. No stridor. She has no wheezes. She has no rales. -Chest Wall: She exhibits no tenderness. ABD: The abdomen is soft. Bowel sounds are normal. She has no distension. No mass is present. There is no tenderness. There is no rebound, no guarding, no Baez's sign and no tenderness at McBurney's point. Rovsig negative MUSC/SKEL: Normal range of motion. There is no peripheral edema, tenderness or deformity. LYMPH: No cervical adenopathy. NEURO: Motor and sensation grossly intact. Course Course 1844: The patient was evaluated in room C3. A complete history and physical exam was performed Cardiac monitoring: An order was placed for continuous cardiac monitoring. The monitor shows a rate of 80 with atrial fibrilation rhythm 1914: Vital signs stable. Labs and imaging within normal limits however EKG shows new T wave inversions. Patient [facility] be [facility] the [facility] team for rule out ACS Dr. Campos notified. Medical Decision Making Laboratory Data Result diagrams: 04/26/22 17:40 04/26/22 17:40 Labs: Lab Results 04/26/22 04/26/22 04/26/22 Range/Units 17:40 17:40 17:40 WBC 8.61 (4.8-10.8) K/ul RBC 4.01 (3.93-5.22) M/uL Hgb 13.2 (12.0-16.0) g/dl Hct 39.3 (34.1-44.9) % MCV 98.0 (80.0-100.0) fL MCH 32.9 (25.0-34.0) pg MCHC 33.6 (32.0-36.0) g/dL RDW Std Deviation 50.7 H (36.4-46.3) fL RDW Coeff of Apple 13.9 (11.5-14.5) % Plt Count 163 (130-400) K/uL MPV 10.6 (9.4-12.3) fL Immature Gran % (Auto) 0.3 % Neut % (Auto) 70.7 % Lymph % (Auto) 17.1 % [place] % (Auto) 10.8 % Eos % (Auto) 0.8 % Baso % (Auto) 0.3 % Neut # (Auto) 6.08 (1.4-6.5) K/uL Lymph # (Auto) 1.47 (1.2-3.4) K/uL [place] # (Auto) 0.93 H (0.24-0.82) K/uL Eos # (Auto) 0.07 (0-0.50) K/uL Baso # (Auto) 0.03 (0-0.2) K/uL Immature Gran # (Auto) 0.03 H (0.00-0.02) K/uL PT 11.5 (9.0-12.0) Seconds INR 1.1 (0.9-1.1) APTT 25.4 (21.0-31.0) Seconds PTT Ratio 0.9 Sodium 136 (136-145) mmol/L Potassium 4.2 (3.5-5.1) mmol/L Chloride 103 (98-107) mmol/L Carbon Dioxide 26 (21-32) mmol/L Anion Gap 7 (3-11) BUN 26 H (6-23) mg/dl Creatinine 0.89 (0.6-1.2) mg/dl Est Cr Clr Drug Dosing 36.8 ml/min Est GFR ( Amer) 67.1 ml/min Est GFR (Non-Af Amer) 57.9 ml/min BUN/Creatinine Ratio 29.2 H (10-20) Glucose 103 H (70-99(Fasting)) mg/dl Calcium 9.3 (8.5-10.1) mg/dl Total Bilirubin 1.4 H (0.2-1.0) mg/dl AST 27 (13-39) U/L ALT 12 (7-52) U/L Alkaline Phosphatase 57 (34-104) U/L Troponin I High Sens 13.6 (0-14) pg/ml Total Protein 7.4 (6.0-8.3) gm/dl Albumin 4.0 (3.4-5.0) gm/dl Globulin 3.4 (2.5-4.0) gm/dl Albumin/Globulin Ratio 1.2 (0.9-2) SARS-CoV-2, RNA, NAAT (NEGATIVE) 04/26/22 Range/Units 19:15 WBC (4.8-10.8) K/ul RBC (3.93-5.22) M/uL Hgb (12.0-16.0) g/dl Hct (34.1-44.9) % MCV (80.0-100.0) fL MCH (25.0-34.0) pg MCHC (32.0-36.0) g/dL RDW Std Deviation (36.4-46.3) fL RDW Coeff of Apple (11.5-14.5) % Plt Count (130-400) K/uL MPV (9.4-12.3) fL Immature Gran % (Auto) % Neut % (Auto) % Lymph % (Auto) % [place] % (Auto) % Eos % (Auto) % Baso % (Auto) % Neut # (Auto) (1.4-6.5) K/uL Lymph # (Auto) (1.2-3.4) K/uL [place] # (Auto) (0.24-0.82) K/uL Eos # (Auto) (0-0.50) K/uL Baso # (Auto) (0-0.2) K/uL Immature Gran # (Auto) (0.00-0.02) K/uL PT (9.0-12.0) Seconds INR (0.9-1.1) APTT (21.0-31.0) Seconds PTT Ratio Sodium (136-145) mmol/L Potassium (3.5-5.1) mmol/L Chloride (98-107) mmol/L Carbon Dioxide (21-32) mmol/L Anion Gap (3-11) BUN (6-23) mg/dl Creatinine (0.6-1.2) mg/dl Est Cr Clr Drug Dosing ml/min Est GFR ( Amer) ml/min Est GFR (Non-Af Amer) ml/min BUN/Creatinine Ratio (10-20) Glucose (70-99(Fasting)) mg/dl Calcium (8.5-10.1) mg/dl Total Bilirubin (0.2-1.0) mg/dl AST (13-39) U/L ALT (7-52) U/L Alkaline Phosphatase (34-104) U/L Troponin I High Sens (0-14) pg/ml Total Protein (6.0-8.3) gm/dl Albumin (3.4-5.0) gm/dl Globulin (2.5-4.0) gm/dl Albumin/Globulin Ratio (0.9-2) SARS-CoV-2, RNA, NAAT NEGATIVE (NEGATIVE) Imaging Data Chest x-ray: Radiologist's impression: Chest X-Ray 04/26/22 18:45 XR chest 1V portable CLINICAL HISTORY: cp TECHNIQUE: Single frontal radiograph of the chest was obtained. Comparison: Comparison is made to chest radiograph 02/23/2022 FINDINGS: No lines and tubes are seen. Cardiomegaly is noted. Calcified aortic knob is seen. The lungs are clear. There is blunting of the left costophrenic angle. IMPRESSION: Blunting of the left costophrenic angle may represent scarring or trace effusion. Otherwise no acute abnormalities. Redemonstration of marked cardiomegaly. ACT 112: Negative or not required by law. Electronically signed by: Eulalio Anderson M.D. 04/26/2022 7:16 PM ECG Data Indication: chest pain Rate (beats per minute): 84 Rhythm: atrial fibrillation Findings: + T-wave inversion (I, II, III and aVF are new); no ST depression, no ST elevation or no prolonged QT Comparison ECG Date: from (february 2022) [facility] Narrative Vital signs stable. Labs and imaging within normal limits however EKG shows new T wave inversions. [facility] ACS Dr. Campos notified. Impression & Plan Chest pain, Palpitations Discharge Plan Visit Data Chief Complaint: Arrhythmia/Palpitations Stated Complaint: CHEST PAIN ED Provider: Jb Gaviria Discharge Problem: Chest pain, Palpitations Patient Disposition: Admitted As Inpatient Forms Stand Alone Forms: [facility] Prescriptions Prescriptions: No Action acetaminophen [Acetaminophen Extra Strength] 500 mg tablet 500 mg PO Q6H PRN (Reason: pain) Qty: 90 0RF calcium carbonate 600 mg calcium (1,500 mg) tablet 600 mg PO BID Qty: 60 5RF magnesium 200 mg tablet 400 mg PO DAILY Qty: 60 5RF apixaban 2.5 mg tablet 2.5 mg PO BID Qty: 180 3RF cholecalciferol (vitamin D3) 50 mcg (2,000 unit) capsule 50 mcg PO DAILY Qty: 90 3RF rivastigmine [Exelon Patch] 13.3 mg/24 hour patch 24 hour 13.3 mg transdermal DAILY Qty: 30 2RF alendronate 70 mg tablet 70 mg PO WK Rx Instructions: TAKES ON SUNDAYS Referrals Referrals: Tres Baires MD [Primary Care Provider] -
[2022-04-27] MEDS ORDERED: ONDANSETRON INJ 2 MG/ML 2 ML VIAL IV PRN (06:25)
[2022-04-27] MEDS ORDERED: MAGNESIUM OXIDE 400 MG TAB PO SCH (09:00)
--- NOTE | 2022-04-27 10:07 | Hospitalist Progress Note ---
Date of Service April 27, 2022 Assessment & Plan (1) Chest pain: Plan: 86 yo F with PMH of cognitive decline, CKD III, atrial fibrillation on chronic anticoagulation, left atrial thrombus, LVH, HTN, and UTI admitted to [facility] on 04/26/22 due to chest pain with abnormal EKG. Acute chest pain -Admission EKG- AF, ST depression and inverted T waves in II, III, aVF -Serial troponins 13.6 -> 15.9 -Echocardiogram 02/2022- apical concentric hypertrophy, EF 60-65, no WMA, severe LA dilation, elevated RV pressure -Repeat echocardiogram pending -Lipid profile pending -Pt currently hemodynamically stable, asymptomatic -Suspect pain is likely anginal in nature- given her age, mildly elevated troponins- would be prudent to pursue stress testing/possibly cardiac catheterization- awaiting recommendation from cardiology consult Chronic atrial fibrillation - Holding home Eliquis (2.5 mg BID) - Currently in atrial fibrillation, rate-controlled Pre-diabetes - HgbA1c 6.4% on 03/30 - BSG stable Cognitive decline - Continue home rivastigmine FENGI: NPO pending potential cardiac procedure DVT ppx: Anticoagulated with home Eliquis; holding currently Dispo: Telemetry Code status: Full (2) Abnormal EKG: (3) Pre-diabetes: (4) Atrial fibrillation: (5) Current use of box estimator anticoagulation: (6) Cognitive impairment: Admission and Anticipated Discharge Date Admission Date: April 26, 2022 Subjective No acute events overnight. Pt denies any further chest pain. Does state she felt palpitations recently but this aligns with the time she had the 30 day event monitor. She is curious about why chest pain can be intermittent. States she would like to eat but understands why she cannot have food yet for a potential procedure. Denies any other complaints. Review of Systems Review of Systems: Per subjective Physical Exam Physical Exam: GENERAL: No acute distress. Well developed and well nourished HEENT: Moist mucous membranes, anicteric sclerae. RESPIRATORY: Clear to auscultation bilaterally. No wheezing, rales, or rhonchi. CARDIOVASCULAR: Regular rate. Irregularly irregular rhythm. + systolic murmur. No JVD. ABDOMEN: Soft, non-tender and non-distended. EXTREMITIES: No edema. SKIN: Warm, dry, no rashes MSK: No chest wall tenderness to palpation NEUROLOGIC: A/O x3. Normal speech. No focal neurological deficits PSYCHIATRIC: Cooperative. Appropriate mood and affect. Results & Data Results & Data ([facility]) Vital Signs (Past 12 Hours) Vital Signs Temp Pulse Pulse Resp BP BP Pulse Ox 04/27/22 07:53 36.3 C L 82 17 177/77 H 97 04/27/22 06:15 36.8 C 88 18 162/92 H 96 04/27/22 05:50 76 16 147/89 H 96 04/27/22 03:00 77 04/27/22 01:00 04/26/22 23:00 O2 Del Method 04/27/22 07:53 Room Air 04/27/22 06:15 Room Air 04/27/22 05:50 Room Air 04/27/22 03:00 04/27/22 01:00 Room Air 04/26/22 23:00 Room Air Resident Activity Tracking Resident Involvement: Resident Care Provided Care Provided: Adult Hospital Medicine (1) Atrial fibrillation Atrial fibrillation type: permanent Qualified Code(s): I48.21 - Permanent atrial fibrillation (2) Chest pain Chest pain type: unspecified Qualified Code(s): R07.9 - Chest pain, unspecified
--- NOTE | 2022-04-27 15:34 | Discharge Summary ---
Date of Service April 27, 2022 Admission HPI Per Admitting Provider Patient is an 86 yo female with PMHx of cognitive decline, CKD III, chronic venous insufficiency, Lyme disease, atrial fibrillation on chronic anticoagulation, left atrial thrombus, LVH, HTN, and UTI who presented to [facility] on 04/26/22 accompanied by her daughter due to concerns of chest pain. Patient states that for the past 3 days, she has had intermittent episodes of mild substernal chest pain. The pain lasts from a couple seconds to 1 hour. Daughter notes that patient had about 6-8 episodes today with each of those episodes lasting just a couple seconds. There is no associated dyspnea. She has not had any syncopal episodes. Patient denies hx of similar episodes of pain. She denies recent viral illness. Denies fever, chills, decreased appetite, SOB, orthopnea, abdominal pain, nausea, vomiting, changes in bowel habits, urinary symptoms (including dysuria, hematuria, urinary frequency, or urinary retention), headache, lightheaded, dizziness, weakness, lower extremity pain, or lower extremity swelling. It is noted that patient recently had a 30+ day cardiac event monitor. On record review, this monitor showed atrial fibrillation with controlled rates; no other acute findings. Her primary mandrel maker in Dr. Paredes. In the ER, EKG was performed which showed afib rate 84, ST depression and inverted T waves in the inferior leads, and LVH. These changes are new compared to last EKG February 2022. Labs are unremarkable. No leukocytosis. No anemia. No electrolyte abnormalities. Normal hs-troponin. COVID negative. Admission Exam Per Admitting Provider GENERAL: No acute distress. Well developed and well nourished. Vital signs reviewed as above. EYES: PERRLA. EOMI. Anicteric sclerae. HENT: Moist mucous membranes. No pharyngeal erythema or exudates. RESPIRATORY: Clear to auscultation bilaterally. No wheezing, rales, or rhonchi. CARDIOVASCULAR: Regular rate. Irregularly irregular rhythm. + murmur. No JVD. ABDOMEN: Soft, non-tender and non-distended. Normal bowel sounds. EXTREMITIES: No edema. Non-tender. SKIN: Warm, dry. NEUROLOGIC: A/O x3. Normal speech. No focal neurological deficits. CN II-XII grossly intact. 5/5 strength in BUE and BLE. PSYCHIATRIC: Cooperative. Appropriate mood and affect. Principal Diagnosis Anginal chest pain Discharge Exam GENERAL: No acute distress. Well developed and well nourished HEENT: Moist mucous membranes, anicteric sclerae. RESPIRATORY: Clear to auscultation bilaterally. No wheezing, rales, or rhonchi. CARDIOVASCULAR: Regular rate. Irregularly irregular rhythm. + systolic murmur. No JVD. ABDOMEN: Soft, non-tender and non-distended. EXTREMITIES: No edema. SKIN: Warm, dry, no rashes MSK: No chest wall tenderness to palpation NEUROLOGIC: A/O x3. Normal speech. No focal neurological deficits PSYCHIATRIC: Cooperative. Appropriate mood and affect. Discharge Data Allergies Allergy/AdvReac Type Severity Reaction Status Date / Time donepezil AdvReac Mild Nausea Verified 04/26/22 19:21 risedronate sodium AdvReac Unknown Unknown Verified 04/26/22 19:21 [From Actonel] Consultations 04/26/22 19:10 ED Decision to Admit Stat 04/27/22 06:25 Consult Cardiology Routine Hospital Course (1) Chest pain: 86 yo F with PMH of cognitive decline, CKD III, atrial fibrillation on chronic anticoagulation, left atrial thrombus, LVH, HTN, and UTI admitted to [facility] on 04/26/22 due to chest pain with abnormal EKG. Acute chest pain -Admission EKG- AF, ST depression and inverted T waves in II, III, aVF -Serial troponins 13.6 -> 15.9 -Echocardiogram 02/2022- apical concentric hypertrophy, EF 60-65, no WMA, severe LA dilation, elevated RV pressure -Repeat echocardiogram unremarkable -Lipid profile pending at time of discharge -Pt remained hemodynamically stable, asymptomatic -Suspect pain is likely anginal in nature- given her age, mildly elevated troponins -Cardiology consulted- recommended pt follow up as outpatient for further evaluation such as stress test, prescribed metoprolol tartrate 12.5 mg BID as outpatient -Pt discharged in good condition and cardiology f/u as outpatient Chronic atrial fibrillation - Held home Eliquis (2.5 mg BID) - Remained in atrial fibrillation, rate-controlled Pre-diabetes - HgbA1c 6.4% on 03/30 (2) Abnormal EKG: (3) Pre-diabetes: (4) Atrial fibrillation: (5) Current use of snf anticoagulation: (6) Cognitive impairment: Total Time Total Time Spent Total Time Spent (In Minutes): <30 Discharge Plan Discharge Items Patient Disposition: Home - Self-Care Reason For Visit: AFIB/ABNORMAL EKG Discharge Diagnosis: Chest pain Activity: Resume your previous activity Non-emergency contact: Primary Care Provider and Features Editor Call non-emergency contact if: you have any medication questions, your symptoms worsen and your pain is worsening Follow-up/Referrals: Tres Baires MD [Primary Care Provider] - Clifford Godinez MD [Physician] - Diet: Heart Healthy Addtl Attending Provider Instructions: You were admitted to the hospital for chest pain. The workup of your chest pain suggests that there may be a heart-related cause of pain, particularly coronary artery disease. Please follow up with your PCP and mandrel maker soon to further evaluate this chest pain. CALL 911 OR GO TO THE EMERGENCY DEPARTMENT if you experience any of the following: Sudden, severe abdominal pain or nausea/vomiting Severe chest pain, or chest pain that radiates (moves) to your jaw or arm Sudden, severe shortness of breath or difficulty breathing Thank you for allowing us to participate in your care. Pending Studies at Discharge: Yes Stand-Alone Forms: [facility] Medications and DC Order Prescriptions: New metoprolol tartrate 25 mg tablet 12.5 mg PO DAILY 30 Days Qty: 15 1RF Rx Instructions: Please take a half tablet in the morning and night. Continued acetaminophen [Acetaminophen Extra Strength] 500 mg tablet 500 mg PO Q6H PRN (Reason: pain) Qty: 90 0RF calcium carbonate 600 mg calcium (1,500 mg) tablet 600 mg PO BID Qty: 60 5RF magnesium 200 mg tablet 400 mg PO DAILY Qty: 60 5RF apixaban 2.5 mg tablet 2.5 mg PO BID Qty: 180 3RF cholecalciferol (vitamin D3) 50 mcg (2,000 unit) capsule 50 mcg PO DAILY Qty: 90 3RF rivastigmine [Exelon Patch] 13.3 mg/24 hour patch 24 hour 13.3 mg transdermal DAILY Qty: 30 2RF alendronate 70 mg tablet 70 mg PO WK Rx Instructions: TAKES ON SUNDAYS Discharge Orders: Discharge Order (Routine); Ordered 04/27/22 Ordered By: Artemio Malhotra Admission Data Admit Date/Time: 10/12/22 21:45 Attending Provider: Wesley Plata Admit Provider: Cat Pedro Primary Care Provider: Tres Baires Other Providers: Andrés Shukla ; Ivan Malone Other Interventions: Discharge Summary Assessment (RN) Last Done: 04/27/22 14:45 Supervising Physician Co-Signing Physician Notes I personally examined the patient and verified all butler points of history and exam, discussed case, and agree with decision making with Dr Malhotra Feeling better. Daughter present. Updated to the best of my ability. At the time that I was seeingwas still awaiting cardiology input. After seen by cardiology okay for home. Vitals noted, in general she is awake and alert pleasant no distress. HEENT normocephalic atraumatic mucous membranes moist. Breathing unlabored no accessory muscle use good effort. Skin shows no rashes no pallor or icterus. Neuro without focal deficits. Chest painsafe to go home per cardiology. Low-dose beta-alvaro. Outpatient follow-up with her primary mandrel maker. Otherwise as above.
--- NOTE | 2022-04-27 16:50 | Billing Data ---
Date of Service April 27, 2022 Coding Level of Care Code 55334 OBS Care - Discharge
--- NOTE | 2022-04-27 18:17 | Cardiology Consultation ---
Date of Consultation April 27, 2022 Assessment & Plan (1) Chest pain: 2. Permanent atrial fibrillation 3. Apical variant hypertrophic cardiomyopathy 4. Hypertension Very low suspicion that patient's recent symptoms secondary to ACS. Seem more GI related, again precipitated today after drinking coffee. ECG changes and borderline HS TropI likely secondary to apical variant hypertrophic cardiomyopathy. At this time do not feel additional cardiac testing is necessary. Would add low-dose beta-alvaro, metoprolol 12.5 twice daily for blood pressure and HCM. Previously reported to have some bradycardia on beta-alvaro and cautioned patient, daughter on symptoms to monitor for. Continue anticoagulation with Eliquis. Follow-up with Dr. Paredes within the next month. History of Present Illness Attending Physician: Wesley Plata, History of Present Illness Mrs. Hdez is a very pleasant 86-year-old woman with a history of permanent atrial fibrillation with prior atrial thrombus on anticoagulation, apical hypertrophic cardiomyopathy, moderate mitral regurgitation, hypertension, chronic venous insufficiency, cognitive impairment admitted currently with aty pical chest pain. Patient is followed by Dr. Paredes for her cardiac care. Previously seen by me for vascular issues regarding her venous insufficiency back in 2019. Last ED visit 02/2022 in setting of syncope thought potentially due to dehydration. Echo at that time unchanged. Patient was brought to ED yesterday by her daughter who is a psychiatrist and lives with her. Patient reports intermittent episodes of substernal chest pain occurring over the last 2 days. Describes sharp pain lasting mostly seconds to a couple minutes. Has had as many as 6-8 episodes in a day. Do not occur with exertion. Often occur after eating. Denies associated shortness of breath, palpitations or presyncope. In ED ECG showing atrial fibrillation with LVH with prior lateral T wave inversions in V4, V6 and more prominent T wave inversions in 2 3 and aVF. Inferior T wave inversions resolved on subsequent ECGs. HS TropI 13, 15. Telemetry unremarkable overnight. No chest pain overnight. After drinking coffee again had brief seconds of chest pain. Repeat ECG unchanged. Echo today shows EF 65%, no wall motion abnormalities, apical hypertrophy, severe biatrial enlargement, moderate MR, mild to moderate AI Allergies Allergy/AdvReac Type Severity Reaction Status Date / Time donepezil AdvReac Mild Nausea Verified 04/26/22 19:21 risedronate sodium AdvReac Unknown Unknown Verified 04/26/22 19:21 [From ActPsydex] Home Medications Medication Instructions Recorded Confirmed Type acetaminophen 500 mg tablet 500 mg PO Q6H PRN pain #90 tabs 09/18/19 04/26/22 Rx (Acetaminophen Extra Strength) calcium carbonate 600 mg calcium 600 mg PO BID #60 tabs 02/07/21 04/26/22 Rx (1,500 mg) tablet magnesium 200 mg tablet 400 mg PO DAILY #60 tabs 02/08/21 04/26/22 Rx apixaban 2.5 mg tablet 2.5 mg PO BID #180 tabs 06/27/21 04/26/22 Rx cholecalciferol (vitamin D3) 50 50 mcg PO DAILY #90 caps 02/13/22 04/26/22 Rx mcg (2,000 unit) capsule rivastigmine 13.3 mg/24 hour 13.3 mg transdermal DAILY #30 ea 04/25/22 04/26/22 Rx transdermal patch (Exelon Patch) alendronate 70 mg tablet 70 mg PO WK 04/26/22 04/26/22 History metoprolol tartrate 25 mg tablet 12.5 mg PO DAILY 1 month #15 tabs 04/27/22 Rx Patient History Medical History Arthritis Carpal tunnel syndrome Cervical arthritis Cervical facet syndrome Chest discomfort CKD (chronic kidney disease), stage III Edema Hand pain Hypertension Hypertension Left atrial enlargement Left atrial thrombus Macrocytosis Mitral valve insufficiency, acquired Osteoporosis Osteoporosis Permanent atrial fibrillation Poison vanessa dermatitis Tricuspid regurgitation Vitamin D deficiency Surgical History H/O colonoscopy H/O ligation of vein History of facelift History of tonsillectomy and adenoidectomy Family History Family/Other ASCVD (arteriosclerotic cardiovascular disease) Brother , Age 58 Stroke Brother , Age 71 Stroke Denies family history of Ovarian cancer Prostate cancer Myocardial infarction Breast cancer Colorectal cancer Social History Smoking Status: Never smoker Second Hand Exposure: No; Hx Alcohol Use: No Hx Substance Use: No Preferred Language: Urdu Communication Ability: Effective Visual Impairment: No Limitations Hearing Ability: Normal Timber Skidder Required: No Beliefs That Will Affect Care: None marital status: / Current Living Situation: Alone current occupational status: retired How many Children do You have: 5 Feels Safe at Home: Yes Safety Concerns: Feels Safe At This Time Childhood Exposure to Second-Hand Smoke: No caffeine: Yes during the past year weight has: remained stable Dental Care, Regularly: Yes Physical Activity Frequency: Daily Seatbelt Use: always Sunscreen Use: Yes Assistive Devices: None Review of Systems Review of Systems: All systems reviewed & are unremarkable except as noted in HPI & below Physical Exam Physical Exam: General: Comfortable HEENT: Sclerae anicteric Lungs: Clear to auscultation bilaterally Cardiac: Regular rate and rhythm, 2 out of 6 holosystolic murmur at the apex Vascular: 2+ radial Abdomen: Soft, nontender Extremities: Well perfused, trace edema Neuro: Nonfocal Psych: Alert and oriented, pleasant Results & Data ([facility]) Vital Signs (Past 12 Hours) Vital Signs Temp Pulse Pulse Resp BP Pulse Ox O2 Del Method 04/27/22 14:45 97.7 F 81 20 149/70 H 95 04/27/22 07:00 87 04/27/22 11:47 97.7 F 81 20 149/70 H 95 Room Air 04/27/22 07:53 97.3 F L 82 17 177/77 H 97 Room Air 04/27/22 06:15 98.2 F 88 18 162/92 H 96 Room Air PG Care Time/CCT Total # of Minutes Spent Total Time Spent with Patient: Total time spent is greater than 50% in coordination of care (as documented) at patient's floor/unit and/or counseling patient: Coding Level of Care Code INT OBSERVATION CARE 50M LVL 2 Diagnoses Chest pain R07.9 Chest pain type: unspecified (1) Chest pain Chest pain type: unspecified Qualified Code(s): R07.9 - Chest pain, unspecified
--- NOTE | 2022-04-27 18:28 | XCELERA ---
[id number]
--- NOTE | 2022-04-27 21:58 | Billing Data ---
Date of Service April 27, 2022 Coding Level of Care Code INT OBSERVATION CARE 68M LVL 3
--- NOTE | 2022-04-27 22:46 | Electrocardiogram Report ---
Test Reason : Blood Pressure : / mmHG Vent. Rate : 084 BPM Atrial Rate : 073 BPM P-R Int : 000 ms QRS Dur : 088 ms QT Int : 388 ms P-R-T Axes : 000 063 247 degrees QTc Int : 458 ms Atrial fibrillation Voltage criteria for left ventricular hypertrophy Cannot rule out Septal infarct , age undetermined Abnormal ECG When compared with ECG of 23-FEB-2022 09:18, ST now depressed in Inferior leads Inverted T waves have replaced nonspecific T wave abnormality in Inferolateral leads Confirmed by Mustapha Arellano ([id number]) on 04/27/2022 10:45:58 PM Referred By: REFERRED SELF Confirmed By:Mustapha Arellano
--- NOTE | 2022-04-28 06:19 | Electrocardiogram Report ---
Test Reason : Blood Pressure : / mmHG Vent. Rate : 080 BPM Atrial Rate : 100 BPM P-R Int : 000 ms QRS Dur : 092 ms QT Int : 400 ms P-R-T Axes : 000 026 205 degrees QTc Int : 461 ms Atrial fibrillation Voltage criteria for left ventricular hypertrophy Cannot rule out Septal infarct , age undetermined Abnormal ECG When compared with ECG of 27-APR-2022 06:50, No significant change was found Confirmed by Mustapha Arellano ([id number]) on 04/28/2022 6:19:33 AM Referred By: REFERRED SELF Confirmed By:Mustapha Arellano
[2022-04-30] MEDS ORDERED: ALENDRONATE SODIUM 70 MG TAB PO SCH (06:30)
== END 2022-04-27 15:46 | disposition home or self-care (01) ==
LOC: 2S 17:03 → ED 17:03 → SUATTDRO 21:45 → 2S 04-27 05:50
DX: G31.84 Mild cognitive impairment of uncertain or unknown etiology; Z79.899 Other long term (current) drug therapy; R73.03 Prediabetes; I42.2 Other hypertrophic cardiomyopathy; R07.9 Chest pain, unspecified; I48.20 Chronic atrial fibrillation, unspecified; Z88.8 Allergy status to other drugs, medicaments and biological substances; Z79.01 Long term (current) use of anticoagulants; I10 Essential (primary) hypertension

== ENCOUNTER 2022-09-03 10:15 | Observation (INO) ==
[2022-09-03] MEDS ORDERED: ONDANSETRON INJ 2 MG/ML 2 ML VIAL IV STA (10:24)
[2022-09-03 10:48] LABS: iSTAT Creatinine 1.2 mg/dl (0.6-1.3); iSTAT Ionized Calcium 0.99 mmol/l (1.12-1.32); iSTAT Potassium 3.8 mmol/L (3.3-5.0)
[2022-09-03 10:48] LABS: Basophils # (auto) 0.03 K/uL (0-0.2); Basophils % (auto) 0.4 %; Eosinophils # (auto) 0.04 K/uL (0-0.50); Eosinophils % (auto) 0.5 %; Hematocrit (blood only) 42.5 % (37.0-47.0); Hemoglobin 14.3 g/dl (12.0-16.0); Immature Granulocytes # (auto) 0.06 K/uL (0.01-0.20); Immature Granulocytes % (auto) 0.8 %; Lymphocytes # (auto) 1.99 K/uL (1.2-3.4); Lymphocytes % (auto) 25.6 %; Mean Corpuscular Hemoglobin 33.1 pg (25.0-34.0); Mean Corpuscular Hgb Conc 33.6 g/dL (32.0-36.0); Mean Corpuscular Volume 98.4 fL (80.0-100.0); Mean Platelet Volume 10.4 fL (9.4-12.4); Monocytes # (auto) 0.84 K/uL (0.11-0.59); Monocytes % (auto) 10.8 %; Neutrophils # (auto) 4.81 K/uL (1.40-6.50); Neutrophils % (auto) 61.9 %; Platelet Count 152 K/uL (130-400); RDW Coefficient of Variation 13.1 % (11.5-14.5); RDW Standard Deviation 47.4 fL (36.4-46.3); Red Blood Count 4.32 M/uL (4.20-5.40); White Blood Count 7.77 K/ul (4.8-10.8)
[2022-09-03 11:02] LABS: Albumin Globulin Ratio 1.2 (0.9-2); Bilirubin,Total 1.4 mg/dl (0.2-1.0); Calcium 9.5 mg/dl (8.5-10.1); Creatinine Clr Calc Pharmacy 23.9 ml/min; Est GFR (African American) 47.4 ml/min; Est GFR (Non-African American) 40.9 ml/min; Globulin 3.3 gm/dl (2.5-4.0); Total Protein 7.3 gm/dl (6.0-8.3)
[2022-09-03] MEDS ORDERED: PROMETHAZINE 6.25 MG/50.25 ML BAG IV STA (11:06)
--- NOTE | 2022-09-03 11:06 | Emergency Department Note ---
Impression & Plan Bradycardia, Abnormal EKG, Near syncope, Vomiting ED Provider Note NAME: COOKIE MALDONADO AGE: 87 SEX: F : 1935 ARRIVES VIA: Ambulance INFORMANT: Patient, EMS, Family ED PROVIDER(S): Ivan Zaldivar DO CHIEF COMPLAINT: Syncope HPI: The patient is an 87-year-old female who presented to the emergency department by EMS with a reported syncopal episode. History was obtained from EMS personnel as well as the family. The better history was obtained from the family who were witness to the event. [place] [facility] [place] She went to sit down and it was apparent to the family that she did not feel good. She started drooling and became very altered almost passing out. It does not sound as though the patient fell or had complete syncope. The patient's had nausea and vomiting ever since the event. She has had no abdominal pain. She denies having any chest pain or difficulty breathing. The patient was somewhat confused and when the family arrived they alerted us that she does have a history of atrial fibrillation and does take blood thinners. She was not treated with antiemetics prior to arrival by the prehospital personnel. ROS: See above HPI for pertinent positives & negatives. A total of 10 systems reviewed and were otherwise negative. PAST MEDICAL HISTORY: See Below PAST SURGICAL HISTORY: See Below FAMILY HISTORY: See Below SOCIAL HISTORY: See Below HOME MEDICATIONS: See Below ALLERGIES: See Below VITALS: See Below PHYSICAL EXAMINATION: GENERAL: Patient is awake and alert. She is somewhat anxious appearing. EYES: The conjunctivae are clear. The pupils are round and reactive. EARS, NOSE, MOUTH AND THROAT: The nose is without any evidence of any deformity. NECK: The neck is nontender and supple. RESPIRATORY: Normal respiratory effort is noted there is no evidence of wheezing rhonchi or rales CARDIOVASCULAR: Irregular heart sounds were noted to auscultation. There is no definite murmur. GASTROINTESTINAL: The abdomen is soft. Abdomen is nontender. MUSCULOSKELETAL/EXTREMITIES: There is no evidence of gross deformity full range of motion is noted in the hips and shoulders. SKIN: Chronic venous stasis changes were noted. There is mild edema in both l ower extremities. NEUROLOGIC: Patient is awake and oriented to person place and time. Strength was symmetric but diminished. The patient was somewhat confused about the events of the episode as well as her medical history. MEDICAL DECISION MAKING: The patient is an 87-year-old female who presented to the emergency department for an evaluation of near syncope. Initially when the patient arrived she arrived via ambulance. The history was that the patient was at [facility] sat down and then passed out however when the family members arrived to were witness to this event they state that she did not completely pass out but she did started drooling and appeared to be less responsive. The patient had multiple episodes of emesis. She was treated with IV antiemetics in the emergency department. She did receive Phenergan which did make her very sleepy. The patient's physical exam was not consistent with an acute surgical abdomen. While she is here she did complain of headache. She was taken directly to CT which did not reveal any acute process. I discussed the patient's laboratory and radiographic studies with her and her family. Given the patient's age and comorbidities I also discussed her case with the on-call [facility]. She may require further inpatient management to determine the cause of this episode. Triage Nursing notes reviewed. Prior medical records reviewed Vital Signs: reviewed and remarkable for initial hypertension. Differential diagnosis: Vasovagal event, dehydration, infection, hypoglycemia, electrolyte a bnormalities, cardiac sources, intracerebral event, pulmonary embolism, seizure, toxicologic, neurologic, as well as other pathologies. ER treatment provided: See below Diagnostics interpreted by me: ECG: EKG was obtained in the emergency department. My interpretation is atrial fibrillation at 51 bpm. No PVCs were noted. LVH was suggested by voltage criteria. Biphasic T waves were noted with ST segment depression in the lateral leads. This was compared to a tracing from April 27, 2022. No specific changes were noted. EKG was obtained by the prehospital personnel. My interpretation is atrial fibrillation at [address] segment depression as well as T wave abnormalities were noted in the apical and lateral leads. Cardiac Monitoring: An order was placed for continuous cardiac monitoring. The monitor shows a rate of 63 bpm with atrial fibrillation. Laboratory studies: As stated above and show below. Imaging studies: See below. Radiographic imaging was reviewed by myself Consultation(s): I discussed this case with Dr. Keene who is on-call for the [facility] group. Past Med/Surg History Medical History Arthritis Atrial fibrillation Carpal tunnel syndrome Cervical arthritis Cervical facet syndrome Chest discomfort CKD (chronic kidney disease), stage III Edema Hand pain Hypertension Hypertension Left atrial enlargement Left atrial thrombus Macrocytosis Mitral valve insufficiency, acquired Osteoporosis Osteoporosis Permanent atrial fibrillation Poison vanessa dermatitis Tricuspid regurgitation Vitamin D deficiency Surgical History H/O colonoscopy H/O ligation of vein History of facelift History of tonsillectomy and adenoidectomy Family History Family/Other ASCVD (arteriosclerotic cardiovascular disease) Brother , Age 58 Stroke Brother , Age 71 Stroke Denies family history of Ovarian cancer Prostate cancer Myocardial infarction Breast cancer Colorectal cancer Social History Smoking Status: Never smoker Second Hand Exposure: No; Hx Alcohol Use: No Hx Substance Use: No Preferred Language: Macanese Communication Ability: Effective Visual Impairment: No Limitations Hearing Ability: Normal Environmental Protection Officer Required: No Beliefs That Will Affect Care: None marital status: / Current Living Situation: Alone current occupational status: retired How many Children do You have: 5 Feels Safe at Home: Yes Childhood Exposure to Second-Hand Smoke: No caffeine: Yes during the past year weight has: remained stable Dental Care, Regularly: Yes Physical Activity Frequency: Daily Seatbelt Use: always Sunscreen Use: Yes Assistive Devices: None Allergies Allergies Allergy/AdvReac Type Severity Reaction Status Date / Time donepezil AdvReac Mild Nausea Verified 09/03/22 11:15 risedronate sodium AdvReac Unknown Unknown Verified 09/03/22 11:15 [From Actonel] Home Meds Home Medications Medication Instructions Recorded Confirmed alendronate 70 mg tablet 70 mg PO WK 04/26/22 09/03/22 Previous Rx's Medication Instructions Recorded acetaminophen 500 mg tablet 500 mg PO Q6H PRN pain #90 tabs 09/18/19 (Acetaminophen Extra Strength) calcium carbonate 600 mg calcium 600 mg PO BID #60 tabs 02/07/21 (1,500 mg) tablet magnesium 200 mg tablet 400 mg PO DAILY #60 tabs 02/08/21 apixaban 2.5 mg tablet 2.5 mg PO BID #180 tabs 06/27/21 cholecalciferol (vitamin D3) 50 50 mcg PO DAILY #90 caps 02/13/22 mcg (2,000 unit) capsule rivastigmine 13.3 mg/24 hour 13.3 mg transdermal DAILY #30 ea 04/25/22 transdermal patch (Exelon Patch) blood pressure test kit-[facility] #1 ea 05/04/22 Results & Data (ED) Vital Signs Vital Signs - 24 hr 09/03/22 10:24 09/03/22 10:24 09/03/22 10:24 Temperature 36.5 C Temperature Source Oral Pulse Rate 57 L Pulse Rate [Right Finger] Pulse Rhythm Irregular Pulse Rhythm [Right Finger] Pulse Strength Normal Pulse Strength [Right Finger] Respiratory Rate 22 Respiratory Effort / Characteristics Non-Labored Respiratory Depth Normal Respiratory Pattern Regular Blood Pressure 180/99 H Blood Pressure [Right Arm] Blood Pressure Mean 126 Blood Pressure Mean [Right Arm] Blood Pressure Position Lying Blood Pressure Position [Right Arm] Pulse Oximetry 95 Oxygen Delivery Method Room Air Room Air Room Air Sepsis Recent Fever Within 48 Hours No Sepsis New/Unexplained Change in Mental Status Yes Sepsis Action Taken by Nursing MD Previously Notified 09/03/22 10:31 09/03/22 12:00 09/03/22 14:31 Temperature Temperature Source Pulse Rate 63 80 Pulse Rate [Right Finger] 63 Pulse Rhythm Pulse Rhythm [Right Finger] Irregular Pulse Strength Pulse Strength [Right Finger] Normal Respiratory Rate 20 Respiratory Effort / Characteristics Non-Labored Respiratory Depth Normal Respiratory Pattern Regular Blood Pressure Blood Pressure [Right Arm] 136/71 Blood Pressure Mean Blood Pressure Mean [Right Arm] 92 Blood Pressure Position Blood Pressure Position [Right Arm] Lying Pulse Oximetry 95 Oxygen Delivery Method Room Air Sepsis Recent Fever Within 48 Hours Sepsis New/Unexplained Change in Mental Status Sepsis Action Taken by Prison Medications Current Medication List: was personally reviewed by me Laboratory Data Attestation: I reviewed the patient's lab results. 09/03/22 10:30 09/03/22 10:30 Lab Results 09/03/22 09/03/22 09/03/22 Range/Units 10:30 10:30 10:30 WBC 7.77 (4.8-10.8) K/ul RBC 4.32 (4.20-5.40) M/uL Hgb 14.3 (12.0-16.0) g/dl POC Hgb (12.0-16.0) g/dl Hct 42.5 (37.0-47.0) % POC Hct (37-47) % MCV 98.4 (80.0-100.0) fL MCH 33.1 (25.0-34.0) pg MCHC 33.6 (32.0-36.0) g/dL RDW Std Deviation 47.4 H (36.4-46.3) fL RDW Coeff of Apple 13.1 (11.5-14.5) % Plt Count 152 (130-400) K/uL MPV 10.4 (9.4-12.4) fL Immature Gran % (Auto) 0.8 % Neut % (Auto) 61.9 % Lymph % (Auto) 25.6 % [place] % (Auto) 10.8 % Eos % (Auto) 0.5 % Baso % (Auto) 0.4 % Neut # (Auto) 4.81 (1.40-6.50) K/uL Lymph # (Auto) 1.99 (1.2-3.4) K/uL [place] # (Auto) 0.84 H (0.11-0.59) K/uL Eos # (Auto) 0.04 (0-0.50) K/uL Baso # (Auto) 0.03 (0-0.2) K/uL Immature Gran # (Auto) 0.06 (0.01-0.20) K/uL PT 11.6 (9.0-12.0) Seconds INR 1.1 (0.9-1.1) APTT 26.1 (21.0-31.0) Seconds PTT Ratio 0.9 POC Sodium (135-144) mmol/L Sodium 139 (136-145) mmol/L POC Potassium (3.3-5.0) mmol/L Potassium 4.0 (3.5-5.1) mmol/L POC Chloride (101-112) mmol/L Chloride 104 (98-107) mmol/L Carbon Dioxide 27 (21-32) mmol/L POC Total CO2 (24-31) mmol/L Anion Gap 8 (3-11) POC Anion Gap (16-25) mmol/L POC BUN (7-18) mg/dl BUN 26 H (6-23) mg/dl Creatinine 1.18 (0.6-1.2) mg/dl POC Creatinine (0.6-1.3) mg/dl Est Cr Clr Drug Dosing 23.9 ml/min Est GFR ( Amer) 47.4 ml/min Est GFR (Non-Af Amer) 40.9 ml/min BUN/Creatinine Ratio 22.0 H (10-20) Glucose 117 H (70-99(Fasting)) mg/dl POC Glucose (other) (70-99) mg/dl Calcium 9.5 (8.5-10.1) mg/dl POC Ioniz Calcium Babar (1.12-1.32) mmol/l Magnesium 2.0 (1.7-2.4) mg/dl Total Bilirubin 1.4 H (0.2-1.0) mg/dl AST 27 (13-39) U/L ALT 12 (7-52) U/L Alkaline Phosphatase 56 (34-104) U/L Troponin I High Sens 12.8 (0-14) pg/ml Total Protein 7.3 (6.0-8.3) gm/dl Albumin 4.0 (3.4-5.0) gm/dl Globulin 3.3 (2.5-4.0) gm/dl Albumin/Globulin Ratio 1.2 (0.9-2) TSH (0.300-4.500) uIu/ml SARS-CoV-2, RNA, NAAT (NEGATIVE) 09/03/22 09/03/22 09/03/22 Range/Units 10:30 10:35 Unknown WBC (4.8-10.8) K/ul RBC (4.20-5.40) M/uL Hgb (12.0-16.0) g/dl POC Hgb 15.0 (12.0-16.0) g/dl Hct (37.0-47.0) % POC Hct 44 (37-47) % MCV (80.0-100.0) fL MCH (25.0-34.0) pg MCHC (32.0-36.0) g/dL RDW Std Deviation (36.4-46.3) fL RDW Coeff of Apple (11.5-14.5) % Plt Count (130-400) K/uL MPV (9.4-12.4) fL Immature Gran % (Auto) % Neut % (Auto) % Lymph % (Auto) % [place] % (Auto) % Eos % (Auto) % Baso % (Auto) % Neut # (Auto) (1.40-6.50) K/uL Lymph # (Auto) (1.2-3.4) K/uL [place] # (Auto) (0.11-0.59) K/uL Eos # (Auto) (0-0.50) K/uL Baso # (Auto) (0-0.2) K/uL Immature Gran # (Auto) (0.01-0.20) K/uL PT (9.0-12.0) Seconds INR (0.9-1.1) APTT (21.0-31.0) Seconds PTT Ratio POC Sodium 139 (135-144) mmol/L Sodium (136-145) mmol/L POC Potassium 3.8 (3.3-5.0) mmol/L Potassium (3.5-5.1) mmol/L POC Chloride 104 (101-112) mmol/L Chloride (98-107) mmol/L Carbon Dioxide (21-32) mmol/L POC Total CO2 25 (24-31) mmol/L Anion Gap (3-11) POC Anion Gap 15.0 L (16-25) mmol/L POC BUN 24 H (7-18) mg/dl BUN (6-23) mg/dl Creatinine (0.6-1.2) mg/dl POC Creatinine 1.2 (0.6-1.3) mg/dl Est Cr Clr Drug Dosing ml/min Est GFR ( Amer) ml/min Est GFR (Non-Af Amer) ml/min BUN/Creatinine Ratio (10-20) Glucose (70-99(Fasting)) mg/dl POC Glucose (other) 118 H (70-99) mg/dl Calcium (8.5-10.1) mg/dl POC Ioniz Calcium Babar 0.99 L (1.12-1.32) mmol/l Magnesium (1.7-2.4) mg/dl Total Bilirubin (0.2-1.0) mg/dl AST (13-39) U/L ALT (7-52) U/L Alkaline Phosphatase (34-104) U/L Troponin I High Sens (0-14) pg/ml Total Protein (6.0-8.3) gm/dl Albumin (3.4-5.0) gm/dl Globulin (2.5-4.0) gm/dl Albumin/Globulin Ratio (0.9-2) TSH 3.787 (0.300-4.500) uIu/ml SARS-CoV-2, RNA, NAAT NEGATIVE (NEGATIVE) Administered Medications Discontinued Medications Promethazine HCl (Phenergan) 6.25 mg in 50.25 mls @ 201 mls/hr IV NOW STA Stop: 09/03/22 11:20 Last Infusion: 09/03/22 11:37 Dose: 0 mls/hr Documented By: Admin: 09/03/22 11:21 Dose: 201 mls/hr Documented By: AP Sodium Chloride (Nss 1000ml) 500 mls @ 999 mls/hr IV .Q31M ONE Stop: 09/03/22 12:51 Last Infusion: 09/03/22 13:11 Dose: 0 mls/hr Documented By: Admin: 09/03/22 12:29 Dose: 999 mls/hr Documented By: AP Ondansetron HCl (Ondansetron Inj 2 Mg/Ml 2 Ml Vial) 4 mg IV NOW STA Stop: 09/03/22 10:25 Last Admin: 09/03/22 10:45 Dose: 4 mg Documented By: AP Imaging Data Radiologist's Impression: Chest X-Ray 09/03/22 10:24 SINGLE VIEW CHEST CLINICAL HISTORY: Syncope FINDINGS: An AP, portable, upright chest radiograph is compared to study dated 04/26/2022. The heart is markedly enlarged noting atherosclerotic calcification of the thoracic aorta. The pulmonary vasculature is noncongested. Chronic interstitial thickening as in the previous. The lungs and pleural spaces are clear noting bibasilar scarring/atelectasis. No pneumothorax is seen. The skeletal structures are osteopenic. The bony thorax is grossly intact. IMPRESSION: Cardiomegaly with no active disease in the chest. ACT 112: Negative or not required by law. Electronically signed by: Rowdy Goldberg M.D. 09/03/2022 11:[address] 09/03/22 10:24 CT SCAN OF THE BRAIN WITHOUT IV CONTRAST CLINICAL HISTORY: Syncope. COMPARISON STUDY: CT of the brain dated 02/23/2022. TECHNIQUE: Unenhanced axial CT scan of the brain is performed from the vertex to the skull base. A dose lowering technique was utilized adhering to the principles of ALARA. CT DOSE: 773.57 mGy.cm FINDINGS: Brain parenchyma: There is age-related involutional change noting moderate subcortical and periventricular microangiopathic disease. There is no hemorrhage, mass effect, or evidence of acute territorial ischemia by CT criteria. Barker-white matter differentiation is preserved. No extra-axial fluid collection is seen. Mineralization is noted in the basal ganglia. Ventricles, sulci, cisterns: Prominent secondary to involutional change. Intracranial vasculature: There is atherosclerotic calcification of the cave rnous carotid and vertebral arteries. Calvarium: The skeletal structures are osteopenic. No depressed calvarial fracture is identified. Sinuses and mastoids: The visualized paranasal sinuses are clear. The mastoid air cells are well pneumatized. Orbits: The bony orbits are grossly intact. There are bilateral ocular lens implants. IMPRESSION: There is no hemorrhage, mass effect, or evidence of acute territorial ischemia by CT criteria. ACT 112: Negative or not required by law. Electronically signed by: Rowdy Goldberg M.D. 09/03/2022 12:07 PM Discharge Plan Visit Data Chief Complaint: Syncope Stated Complaint: SYNCOPE ED Provider: Ivan Zaldivar Discharge Problem: Bradycardia, Abnormal EKG, Near syncope, Vomiting Patient Disposition: Being Evaluated by Hospitalist Forms Stand Alone Forms: [facility] Prescriptions Prescriptions: No Action acetaminophen [Acetaminophen Extra Strength] 500 mg tablet 500 mg PO Q6H PRN (Reason: pain) Qty: 90 0RF calcium carbonate 600 mg calcium (1,500 mg) tablet 600 mg PO BID Qty: 60 5RF magnesium 200 mg tablet 400 mg PO DAILY Qty: 60 5RF apixaban 2.5 mg tablet 2.5 mg PO BID Qty: 180 3RF cholecalciferol (vitamin D3) 50 mcg (2,000 unit) capsule 50 mcg PO DAILY Qty: 90 3RF rivastigmine [Exelon Patch] 13.3 mg/24 hour patch 24 hour 13.3 mg transdermal DAILY Qty: 30 2RF (DME) blood pressure test kit-medium Kit See Rx Instructions .Route Qty: 1 0RF Rx Instructions: As directed alendronate 70 mg tablet 70 mg PO WK Rx Instructions: TAKES ON SUNDAYS Referrals Referrals: Tres Baires MD [Primary Care Provider] - Vomiting Qualifiers: Vomiting type: unspecified Nausea presence: with nausea Qualified Code(s): R11.2 - Nausea with vomiting, unspecified
[2022-09-03 11:08] LABS: Troponin I High Sensitivity 12.8 pg/ml (0-14)
[2022-09-03 11:11] LABS: INR 1.1 (0.9-1.1); Partial Thromboplastin Ratio 0.9; Partial Thromboplastin Time 26.1 Seconds (21.0-31.0); Prothrombin Time 11.6 Seconds (9.0-12.0)
--- NOTE | 2022-09-03 11:36 | XRay Report ---
SINGLE VIEW CHEST CLINICAL HISTORY: Syncope FINDINGS: An AP, portable, upright chest radiograph is compared to study dated 04/26/2022. The heart is markedly enlarged noting atherosclerotic calcification of the thoracic aorta. The pulmonary vascul ature is noncongested. Chronic interstitial thickening as in the previous. The lungs and pleural spac es are clear noting bibasilar scarring/atelectasis. No pneumothorax is seen. The skeletal structures are osteopenic. The bony thorax is grossly intact. IMPRESSION: Cardiomegaly with no active disease in the chest. ACT 112: Negative or not required by law. Electronically signed by: Rowdy Goldberg M.D. 09/03/2022 11:35 AM
--- NOTE | 2022-09-03 12:10 | CT Scan Report ---
CT SCAN OF THE BRAIN WITHOUT IV CONTRAST CLINICAL HISTORY: Syncope. COMPARISON STUDY: CT of the brain dated 02/23/2022. TECHNIQUE: Unenhanced axial CT scan of the brain is performed from the vertex to the skull base. A do se lowering technique was utilized adhering to the principles of ALARA. CT DOSE: 773.57 mGy.cm FINDINGS: Brain parenchyma: There is age-related involutional change noting moderate subcortical and periventri cular microangiopathic disease. There is no hemorrhage, mass effect, or evidence of acute territorial ischemia by CT criteria. Barker-white matter differentiation is preserved. No extra-axial fluid collec tion is seen. Mineralization is noted in the basal ganglia. Ventricles, sulci, cisterns: Prominent secondary to involutional change. Intracranial vasculature: There is atherosclerotic calcification of the cavernous carotid and vertebr al arteries. Calvarium: The skeletal structures are osteopenic. No depressed calvarial fracture is identified. Sinuses and mastoids: The visualized paranasal sinuses are clear. The mastoid air cells are well pneu matized. Orbits: The bony orbits are grossly intact. There are bilateral ocular lens implants. IMPRESSION: There is no hemorrhage, mass effect, or evidence of acute territorial ischemia by CT adelaide corcoran. ACT 112: Negative or not required by law. Electronically signed by: Rowdy Goldberg M.D. 09/03/2022 12:07 PM
[2022-09-03] MEDS ORDERED: SODIUM CHLORIDE 0.9% 1000ML 500 ML IV ONE (12:21)
--- NOTE | 2022-09-03 12:48 | History & Physical Report ---
Date of Service September 03, 2022 Assessment & Plan (1) Bradycardia: Plan: Shruthi is an 87-year-old female with a past medical history of apical hypertrophy, A-fib with RVR and bradycardia on DOAC, mild cognitive decline, pre-DM, and a history of syncope/presyncope who presented after she became lightheaded at [facility] with subsequent nausea/vomiting. She has been recommended for admission for evaluation of near syncope with bradycardia Near syncope Patient has had similar episodes with RVR in the past, has been taken off of metoprolol due to low blood pressure several weeks ago At time of episode patient was seen with other physicians around in congreg[facility], reportedly bradycardic which improved after nausea and small volume emesis improved Given her resting bradycardia would not Riyad metoprolol at this time, discussed this with the family. We will follow overnight on telemetry. If heart rate is elevated or she has breakthrough episodes of RVR can consider this, although suspect the risk outweighs the benefit at this time Troponin is normal on admission EKG without acute changes, diffuse ST segment abnormalities without elevation/depression. At bedside pulse is 63. In route EKG is reviewed, intermittently bradycardic during periods of nausea. Patient did not lose consciousness at any point, son was present with her during episode Admitting troponin normal, 2-hour repeat pending COVID-negative Patient feels normal at bedside assessment, has no abdominal pain, and her nausea/vomiting have resolved. Will defer CT of the abdomen as she does not continue to have ongoing symptoms, pain, fever, or leukocytosis - Echo 04/2022: LVEF 60-65%, no regional WMA, apical hypertrophy, normal RV size and function (2) Near syncope: Plan: As noted (3) CKD (chronic kidney disease), stage III: Plan: Admitting creatinine 1.18, at baseline Age-adjusted creatinine clearance 23.9 BMP daily, renally dose medications as needed (4) Apical variant hypertrophic cardiomyopathy: Plan: Metoprolol deferred as noted. Patient has not had symptoms for this in the past (5) HTN (hypertension): Plan: Patient with resting blood pressure low, metoprolol was discontinued due to borderline hypotension. Normal blood pressures have been in the 130s. No indication for additional agent at this time, will follow vitals overnight Plan DVT PPx: On DOAC Diet: Dispo: Tele for near syncope & bradycardia CODE: FULL If asymtpmatoic overnight and no arrythmia anticipate dc to [place]. If RVR --> +MTP. If symptomatic bradycardia, consult cards. History of Present Illness Primary Care Provider: Tres Baires MD Shruthi is a 87-year-old female who presented with a syncopal episode while at congreg[facility]. Dizzy/LH while at congregational and sat down, was HTNive. Per family felt 'off' then sat down but did not lose conciousness. Vomited x6 in ER. +Zofran, +6mg phenergan in ER and was altered/snowed. History of prediabetes, A-fib on Eliquis, apical variant hypertrophic cardiomyopathy, chronic venous insufficiency, CKD 3, cognitive impairment, arthritis[facility] Son was next to her and she sad down and was drooling. Nausea and had small amoutn of spit up/slight vomiting. No blood/bile. while vomiting was bardycardic by report. Pt reports has had lighheadedness/dizziness/N/V with RVR in the ast.No SoB. Walks without angina/sob at her home. Goes up stairs at [facility] without CP/CP/SoB. At bedside no CP/CP/SoB, no longer nauseus. No abdomianl pain no fever/chills/sweats/cough. no Dysuria or polyuria. Medical History: Reviewed Medications: Reviewed Surgical History: Reviewed Allergies: Reviewed Social History: Reviewed Code Status: Full Allergies Allergy/AdvReac Type Severity Reaction Status Date / Time donepezil AdvReac Mild Nausea Verified 09/03/22 11:15 risedronate sodium AdvReac Unknown Unknown Verified 09/03/22 11:15 [From Actonel] Home Medications Medication Instructions Recorded Confirmed Type acetaminophen 500 mg tablet 500 mg PO Q6H PRN pain #90 tabs 09/18/19 09/03/22 Rx (Acetaminophen Extra Strength) calcium carbonate 600 mg calcium 600 mg PO BID #60 tabs 02/07/21 09/03/22 Rx (1,500 mg) tablet magnesium 200 mg tablet 400 mg PO DAILY #60 tabs 02/08/21 09/03/22 Rx apixaban 2.5 mg tablet 2.5 mg PO BID #180 tabs 06/27/21 09/03/22 Rx cholecalciferol (vitamin D3) 50 50 mcg PO DAILY #90 caps 02/13/22 09/03/22 Rx mcg (2,000 unit) capsule rivastigmine 13.3 mg/24 hour 13.3 mg transdermal DAILY #30 ea 04/25/22 09/03/22 Rx transdermal patch (Exelon Patch) alendronate 70 mg tablet 70 mg PO WK 04/26/22 09/03/22 History blood pressure test kit-medium #1 ea 05/04/22 07/27/22 Rx Past Med/Surg History Medical History Arthritis Atrial fibrillation Carpal tunnel syndrome Cervical arthritis Cervical facet syndrome Chest discomfort CKD (chronic kidney disease), stage III Edema Hand pain Hypertension Hypertension Left atrial enlargement Left atrial thrombus Macrocytosis Mitral valve insufficiency, acquired Osteoporosis Osteoporosis Permanent atrial fibrillation Poison vanessa dermatitis Tricuspid regurgitation Vitamin D deficiency Surgical History H/O colonoscopy H/O ligation of vein History of facelift History of tonsillectomy and adenoidectomy Family History Family/Other ASCVD (arteriosclerotic cardiovascular disease) Brother , Age 58 Stroke Brother , Age 71 Stroke Denies family history of Ovarian cancer Prostate cancer Myocardial infarction Breast cancer Colorectal cancer Social History Smoking Status: Never smoker Second Hand Exposure: No; Hx Alcohol Use: No Hx Substance Use: No Preferred Language: Hungarian Communication Ability: Effective Visual Impairment: No Limitations Hearing Ability: Normal Personnel Clerk Required: No Beliefs That Will Affect Care: None marital status: / Current Living Situation: Alone current occupational status: retired How many Children do You have: 5 Feels Safe at Home: Yes Childhood Exposure to Second-Hand Smoke: No caffeine: Yes during the past year weight has: remained stable Dental Care, Regularly: Yes Physical Activity Frequency: Daily Seatbelt Use: always Sunscreen Use: Yes Assistive Devices: None Review of Systems Review of Systems: All systems reviewed & are unremarkable except as noted in HPI & below Physical Exam Physical Exam: General: A&O. NAD. Cooperative. TP linear, occasionally tangential. HEENT: Atraumatic, normocephalic. PERLAA. EoM intact. Vision/hearing grossly intact. Pulm: CTAB A&P. -wheezes, -rales, -rhonchi. Symmetrical chest rise. No increased work of breathing. No respiratory distress. Cardiac: irir, +sm. Radial pulses intact and symmetrical. Abdominal: Nontender, nondistended, soft. BS present. Ext: Warm, dry. Moves all extremities equally 5/5 [address] l[address] rn strenght, 5/5 ankle dorsi/plantarflexion Results & Data Results & Data ([facility]) Vital Signs (Past 12 Hours) Vital Signs Temp Pulse Pulse Resp BP BP Pulse Ox 09/03/22 12:00 63 20 136/71 95 09/03/22 10:31 63 09/03/22 10:24 09/03/22 10:24 09/03/22 10:24 36.5 C 57 L 22 180/99 H 95 O2 Del Method 09/03/22 12:00 Room Air 09/03/22 10:31 09/03/22 10:24 Room Air 09/03/22 10:24 Room Air 09/03/22 10:24 Room Air PG Care Time/CCT Total # of Minutes Spent Total Time Spent with Patient: Total time spent is greater than 50% in coordination of care (as documented) at patient's floor/unit and/or counseling patient: Coding Level of Care Code 38513 INT INP/OBS CARE 2/55MIN Diagnoses Bradycardia R00.1 Near syncope R55 CKD (chronic kidney disease), stage III N18.30 Apical variant hypertrophic cardiomyopathy I42.2 HTN (hypertension) I10
[2022-09-03] MEDS ORDERED: ACETAMINOPHEN 500 MG TAB PO PRN (16:22)
[2022-09-03] MEDS ORDERED: ONDANSETRON INJ 2 MG/ML 2 ML VIAL IV PRN (16:22)
[2022-09-03 16:58] LABS: Appearance Urine Clear (Clear); Bacteria Urine Automated Negative (Negative); Bilirubin Urine Negative (Negative); Blood Urine Negative (Negative); Color Urine Yellow; Epithelial Cell Urine Auto >30 /lpf (0-5); Glucose Urine UA Negative (Negative); Ketones Urine 1+ (Negative); Leukocyte Esterase Urine 1+ (Negative); Nitrite Urine Negative (Negative); Protein Urine Trace (Negative); RBC Urine Automated 0-4 /hpf (0-4); Urobilinogen Urine Negative (Negative); pH Urine 6.5 (4.5-7.5)
[2022-09-03] MEDS: APIXABAN 2.5 MG TAB PO SCH (21:54)
--- NOTE | 2022-09-04 07:07 | Hospitalist Progress Note ---
Date of Service September 04, 2022 Assessment & Plan (1) Bradycardia: Plan: Shruthi is an 87-year-old female with a past medical history of apical hypertrophy, A-fib with RVR and bradycardia on DOAC, mild cognitive decline, pre-DM, and a history of syncope/presyncope who presented after she became lightheaded at [facility] with subsequent nausea/vomiting. She has been recommended for admission for evaluation of near syncope with bradycardia Near syncope Patient has had similar episodes with RVR in the past, has been taken off of metoprolol due to low blood pressure several weeks ago At time of episode patient was seen with other physicians around in [facility], reportedly bradycardic which improved after nausea and small volume emesis improved Given her resting bradycardia would not resume metoprolol at this time, discussed this with the family. We will follow overnight on telemetry. If heart rate is elevated or she has breakthrough episodes of RVR can consider this, although suspect the risk outweighs the benefit at this time Troponin is normal on admission EKG without acute changes, diffuse ST segment abnormalities without elevation/depression. At bedside pulse is 63. In route EKG is reviewed, intermittently bradycardic during periods of nausea. Patient did not lose consciousness at any point, son was present with her during episode Admitting troponin normal, 2-hour repeat pending COVID-negative Patient feels normal at bedside assessment, has no abdominal pain, and her nausea/vomiting have resolved. Will defer CT of the abdomen as she does not continue to have ongoing symptoms, pain, fever, or leukocytosis - Echo 04/2022: LVEF 60-65%, no regional WMA, apical hypertrophy, normal RV size and function (2) Near syncope: Plan: As noted (3) CKD (chronic kidney disease), stage III: Plan: Admitting creatinine 1.18, at baseline Age-adjusted creatinine clearance 23.9 BMP daily, renally dose medications as needed (4) Apical variant hypertrophic cardiomyopathy: Plan: Metoprolol deferred as noted. Patient has not had symptoms for this in the past (5) HTN (hypertension): Plan: Patient with resting blood pressure low, metoprolol was discontinued due to borderline hypotension. Normal blood pressures have been in the 130s. No indication for additional agent at this time, will follow vitals overnight Plan DVT PPx: On DOAC Diet: Dispo: Tele for near syncope & bradycardia CODE: FULL Admission and Anticipated Discharge Date Admission Date: September 03, 2022 Physical Exam Physical Exam: Constitutional: well-appearing, no acute distress HEENT: NCAT, no conjunctival injection CV: regular rhythm, no murmur appreciated, extremities well-perfused, no LE edema Resp: CTABL, no wheezes/rales/rhonchi appreciated, no increased work of breathing GI: soft, nondistended, nontender, BS normoactive MSK: no gross deformities appreciated Skin: warm, dry, no rash appreciated Neuro: alert, oriented, no focal neurologic deficit appreciated Results & Data Results & Data ([facility]) Vital Signs (Past 12 Hours) Vital Signs Temp Pulse Pulse Resp BP Pulse Ox O2 Del Method 09/04/22 03:56 36.6 C 80 18 129/74 94 Room Air 09/03/22 23:09 66 09/03/22 23:19 36.4 C L 85 16 133/75 92 Room Air
[2022-09-04 07:46] LABS: Basophils # (auto) 0.03 K/uL (0-0.2); Basophils % (auto) 0.6 %; Eosinophils # (auto) 0.07 K/uL (0-0.50); Eosinophils % (auto) 1.3 %; Hematocrit (blood only) 39.6 % (37.0-47.0); Immature Granulocytes # (auto) 0.02 K/uL (0.01-0.20); Immature Granulocytes % (auto) 0.4 %; Lymphocytes # (auto) 1.14 K/uL (1.2-3.4); Mean Corpuscular Hgb Conc 32.8 g/dL (32.0-36.0); Mean Corpuscular Volume 100.5 fL (80.0-100.0); Mean Platelet Volume 10.3 fL (9.4-12.4); Monocytes % (auto) 11.6 %; Neutrophils # (auto) 3.33 K/uL (1.40-6.50); Neutrophils % (auto) 64.1 %; Platelet Count 144 K/uL (130-400); RDW Coefficient of Variation 13.4 % (11.5-14.5); RDW Standard Deviation 49.8 fL (36.4-46.3); Red Blood Count 3.94 M/uL (4.20-5.40); White Blood Count 5.19 K/ul (4.8-10.8)
[2022-09-04 08:00] LABS: BUN Creatinine Ratio 23.6 (10-20); Calcium 8.8 mg/dl (8.5-10.1); Est GFR (African American) 51.5 ml/min; Est GFR (Non-African American) 44.5 ml/min; Potassium 4.3 mmol/L (3.5-5.1)
[2022-09-04] MEDS: APIXABAN 2.5 MG TAB PO SCH (08:04)
--- NOTE | 2022-09-04 08:46 | Electrocardiogram Report ---
Test Reason : Blood Pressure : / mmHG Vent. Rate : 051 BPM Atrial Rate : 326 BPM P-R Int : 000 ms QRS Dur : 092 ms QT Int : 450 ms P-R-T Axes : 000 031 182 degrees QTc Int : 414 ms Atrial fibrillation with slow ventricular response Voltage criteria for left ventricular hypertrophy Abnormal ECG When compared with ECG of 27-APR-2022 14:31, Vent. rate has decreased BY 29 BPM Confirmed by Lico De Los Santos ([id number]) on 09/04/2022 8:46:19 AM Referred By: REFERRED SELF Confirmed By:Boston De Los Santos
[2022-09-04] MEDS ORDERED: MAGNESIUM OXIDE 400 MG TAB PO SCH (09:00)
[2022-09-04] MEDS ORDERED: CHOLECALCIFEROL 1,000 UNITS 25 MCG TAB PO SCH (09:00)
--- NOTE | 2022-09-04 15:20 | Discharge Summary ---
Date of Service September 04, 2022 Admission HPI Per Admitting Provider Shruthi is a 87-year-old female who presented with a syncopal episode while at [employer]. Dizzy/LH while at [employer] and sat down, was HTNive. Per family felt 'off' then sat down but did not lose conciousness. Vomited x6 in ER. +Zofran, +6mg phenergan in ER and was altered/snowed. History of prediabetes, A-fib on Eliquis, apical variant hypertrophic cardiomyopathy, chronic venous insufficiency, CKD 3, cognitive impairment, arthritis[facility] Son was next to her and she sad down and was drooling. Nausea and had small amoutn of spit up/slight vomiting. No blood/bile. while vomiting was bardycardic by report. Pt reports has had lighheadedness/dizziness/N/V with RVR in the ast.No SoB. Walks without angina/sob at her home. Goes up stairs at [place] without CP/CP/SoB. At bedside no CP/CP/SoB, no longer nauseus. No abdomianl pain no fever/chills/sweats/cough. no Dysuria or polyuria. Medical History: Reviewed Medications: Reviewed Surgical History: Reviewed Allergies: Reviewed Social History: Reviewed Code Status: Full Principal Diagnosis Bradycardia Discharge Exam Constitutional: well-appearing, no acute distress HEENT: NCAT, no conjunctival injection CV: regular rhythm, no murmur appreciated, extremities well-perfused, no LE edema Resp: CTABL, no wheezes/rales/rhonchi appreciated, no increased work of breathing GI: soft, nondistended, nontender, BS normoactive MSK: no gross deformities appreciated Skin: warm, dry, no rash appreciated Neuro: alert, oriented, no focal neurologic deficit appreciated Discharge Data Allergies Allergy/AdvReac Type Severity Reaction Status Date / Time donepezil AdvReac Mild Nausea Verified 09/03/22 11:15 risedronate sodium AdvReac Unknown Unknown Verified 09/03/22 11:15 [From Actonel] Consultations 09/03/22 12:45 ED Decision to Admit Stat 09/04/22 13:45 Consult Cardiology Routine Ordered Studies 09/03/22 10:24 CT head/brain wo con Stat Laboratory Results WBC 5.19 K/ul (4.8-10.8) 09/04/22 07:16 RBC 3.94 M/uL (4.20-5.40) L 09/04/22 07:16 Hgb 13.0 g/dl (12.0-16.0) 09/04/22 07:16 POC Hgb 15.0 g/dl (12.0-16.0) 09/03/22 10:35 Hct 39.6 % (37.0-47.0) 09/04/22 07:16 POC Hct 44 % (37-47) 09/03/22 10:35 MCV 100.5 fL (80.0-100.0) H 09/04/22 07:16 MCH 33.0 pg (25.0-34.0) 09/04/22 07:16 MCHC 32.8 g/dL (32.0-36.0) 09/04/22 07:16 RDW Std Deviation 49.8 fL (36.4-46.3) H 09/04/22 07:16 RDW Coeff of Apple 13.4 % (11.5-14.5) 09/04/22 07:16 Plt Count 144 K/uL (130-400) 09/04/22 07:16 MPV 10.3 fL (9.4-12.4) 09/04/22 07:16 Immature Gran % (Auto) 0.4 % 09/04/22 07:16 Neut % (Auto) 64.1 % 09/04/22 07:16 Lymph % (Auto) 22.0 % 09/04/22 07:16 [place] % (Auto) 11.6 % 09/04/22 07:16 Eos % (Auto) 1.3 % 09/04/22 07:16 Baso % (Auto) 0.6 % 09/04/22 07:16 Neut # (Auto) 3.33 K/uL (1.40-6.50) 09/04/22 07:16 Lymph # (Auto) 1.14 K/uL (1.2-3.4) L 09/04/22 07:16 [place] # (Auto) 0.60 K/uL (0.11-0.59) H 09/04/22 07:16 Eos # (Auto) 0.07 K/uL (0-0.50) 09/04/22 07:16 Baso # (Auto) 0.03 K/uL (0-0.2) 09/04/22 07:16 Immature Gran # (Auto) 0.02 K/uL (0.01-0.20) 09/04/22 07:16 PT 11.6 Seconds (9.0-12.0) 09/03/22 10:30 INR 1.1 (0.9-1.1) 09/03/22 10:30 APTT 26.1 Seconds (21.0-31.0) 09/03/22 10:30 PTT Ratio 0.9 09/03/22 10:30 POC Sodium 139 mmol/L (135-144) 09/03/22 10:35 Sodium 142 mmol/L (136-145) 09/04/22 07:16 POC Potassium 3.8 mmol/L (3.3-5.0) 09/03/22 10:35 Potassium 4.3 mmol/L (3.5-5.1) 09/04/22 07:16 POC Chloride 104 mmol/L (101-112) 09/03/22 10:35 Chloride 108 mmol/L (98-107) H 09/04/22 07:16 Carbon Dioxide 31 mmol/L (21-32) 09/04/22 07:16 POC Total CO2 25 mmol/L (24-31) 09/03/22 10:35 Anion Gap 3 (3-11) 09/04/22 07:16 POC Anion Gap 15.0 mmol/L (16-25) L 09/03/22 10:35 POC BUN 24 mg/dl (7-18) H 09/03/22 10:35 BUN 26 mg/dl (6-23) H 09/04/22 07:16 Creatinine 1.10 mg/dl (0.6-1.2) 09/04/22 07:16 POC Creatinine 1.2 mg/dl (0.6-1.3) 09/03/22 10:35 Est Cr Clr Drug Dosing 29.0 ml/min 09/04/22 07:16 Est GFR ( Amer) 51.5 ml/min 09/04/22 07:16 Est GFR (Non-Af Amer) 44.5 ml/min 09/04/22 07:16 BUN/Creatinine Ratio 23.6 (10-20) H 09/04/22 07:16 Glucose 102 mg/dl (70-99(Fasting)) H 09/04/22 07:16 POC Glucose (other) 118 mg/dl (70-99) H 09/03/22 10:35 Calcium 8.8 mg/dl (8.5-10.1) 09/04/22 07:16 POC Ioniz Calcium Babar 0.99 mmol/l (1.12-1.32) L 09/03/22 10:35 Magnesium 2.0 mg/dl (1.7-2.4) 09/03/22 10:30 Total Bilirubin 1.4 mg/dl (0.2-1.0) H 09/03/22 10:30 AST 27 U/L (13-39) 09/03/22 10:30 ALT 12 U/L (7-52) 09/03/22 10:30 Alkaline Phosphatase 56 U/L (34-104) 09/03/22 10:30 Troponin I High Sens 11.4 pg/ml (0-14) 09/03/22 15:53 Total Protein 7.3 gm/dl (6.0-8.3) 09/03/22 10:30 Albumin 4.0 gm/dl (3.4-5.0) 09/03/22 10:30 Globulin 3.3 gm/dl (2.5-4.0) 09/03/22 10:30 Albumin/Globulin Ratio 1.2 (0.9-2) 09/03/22 10:30 TSH 3.787 uIu/ml (0.300-4.500) 09/03/22 10:30 Urine Color Yellow 09/03/22 16:00 Urine Appearance Clear (Clear) 09/03/22 16:00 Urine pH 6.5 (4.5-7.5) 09/03/22 16:00 Ur Specific [place] 1.020 (1.000-1.030) 09/03/22 16:00 Urine Protein Trace (Negative) H 09/03/22 16:00 Urine Glucose (UA) Negative (Negative) 09/03/22 16:00 Urine Ketones 1+ (Negative) H 09/03/22 16:00 Urine Blood Negative (Negative) 09/03/22 16:00 Urine Nitrite Negative (Negative) 09/03/22 16:00 Urine Bilirubin Negative (Negative) 09/03/22 16:00 Urine Urobilinogen Negative (Negative) 09/03/22 16:00 Ur Leukocyte Esterase 1+ (Negative) H 09/03/22 16:00 Urine WBC (Auto) 5-10 /hpf (0-5) H 09/03/22 16:00 Urine RBC (Auto) 0-4 /hpf (0-4) 09/03/22 16:00 U Hyaline Cast (Auto) 1-5 /lpf (0-5) 09/03/22 16:00 U Epithel Cells (Auto) >30 /lpf (0-5) H 09/03/22 16:00 Urine Bacteria (Auto) Negative (Negative) 09/03/22 16:00 SARS-CoV-2, RNA, NAAT NEGATIVE (NEGATIVE) 09/03/22 Unknown Impressions Chest X-Ray 09/03/22 10:24 SINGLE VIEW CHEST CLINICAL HISTORY: Syncope FINDINGS: An AP, portable, upright chest radiograph is compared to study dated 04/26/2022. The heart is markedly enlarged noting atherosclerotic calcification of the thoracic aorta. The pulmonary vasculature is noncongested. Chronic interstitial thickening as in the previous. The lungs and pleural spaces are clear noting bibasilar scarring/atelectasis. No pneumothorax is seen. The skeletal structures are osteopenic. The bony thorax is grossly intact. IMPRESSION: Cardiomegaly with no active disease in the chest. ACT 112: Negative or not required by law. Electronically signed by: Rowdy Goldberg M.D. 09/03/2022 11:[address] 09/03/22 10:24 CT SCAN OF THE BRAIN WITHOUT IV CONTRAST CLINICAL HISTORY: Syncope. COMPARISON STUDY: CT of the brain dated 02/23/2022. TECHNIQUE: Unenhanced axial CT scan of the brain is performed from the vertex to the skull base. A dose lowering technique was utilized adhering to the principles of ALARA. CT DOSE: 773.57 mGy.cm FINDINGS: Brain parenchyma: There is age-related involutional change noting moderate subcortical and periventricular microangiopathic disease. There is no hemorrhage, mass effect, or evidence of acute territorial ischemia by CT criteria. Barker-white matter differentiation is preserved. No extra-axial fluid collection is seen. Mineralization is noted in the basal ganglia. Ventricles, sulci, cisterns: Prominent secondary to involutional change. Intracranial vasculature: There is atherosclerotic calcification of the cavernous carotid and vertebral arteries. Calvarium: The skeletal structures are osteopenic. No depressed calvarial fracture is identified. Sinuses and mastoids: The visualized paranasal sinuses are clear. The mastoid air cells are well pneumatized. Orbits: The bony orbits are grossly intact. There are bilateral ocular lens implants. IMPRESSION: There is no hemorrhage, mass effect, or evidence of acute territorial ischemia by CT criteria. ACT 112: Negative or not required by law. Electronically signed by: Rowdy Goldberg M.D. 09/03/2022 12:07 PM Hospital Course (1) Bradycardia: Shruthi is an 87-year-old female with a past medical history of apical hypertrophy, A-fib with RVR and bradycardia on DOAC, mild cognitive decline, pre-DM, and a history of syncope/presyncope who presented after she became lightheaded at [employer] with subsequent nausea/vomiting. Admitted for evaluation of near syncope with bradycardia Near syncope with Bradycardia Patient has had similar episodes with RVR in the past, has been taken off of metoprolol due to low blood pressure several weeks ago At time of episode patient was seen with other physicians around in [employer], reportedly bradycardic which improved after nausea and small volume emesis improved Telemetry showed afib with rates in the 60s/70s through admission Troponin normal EKG without acute changes, diffuse ST segment abnormalities without elevation/depression. In route EKG via EMS showed, intermittently bradycardic d uring periods of nausea. Patient did not lose consciousness at any point, son was present with her during episode - Echo 04/2022: LVEF 60-65%, no regional WMA, apical hypertrophy, normal RV size and function Was seen by cardiology. They felt there was not an indication for a pacemaker at this time. They felt Exelon patch could be contributing to bradycardia, but cause likely secondary to increased vagal tone in the setting of emesis. If she were to have similar episodes moving forward, could consider discontinuing the patch. CKD (chronic kidney disease), stage III: Creatine at baseline renally dose medications as needed Apical variant hypertrophic cardiomyopathy: Metoprolol deferred as noted. Patient has not had symptoms with this in the past HTN (hypertension): Patient with resting blood pressure low, metoprolol was discontinued due to borderline hypotension. Normal blood pressures have been in the 130s. (2) Near syncope: (3) CKD (chronic kidney disease), stage III: (4) Apical variant hypertrophic cardiomyopathy: (5) HTN (hypertension): Total Time Total Time Spent Total Time Spent (In Minutes): 30 Discharge Plan Discharge Items Patient Disposition: Home - Self-Care Reason For Visit: NEAR SYNCOPE Discharge Diagnosis: Bradycardia Activity: Per Instructions section Non-emergency contact: Primary Care Provider and Manager [place] Call non-emergency contact if: you have any medication questions and your symptoms worsen Follow-up/Referrals: Tres Baires MD [Primary Care Provider] - 09/12/22 11:00 am (Appointment with Lizbeth Rey PA-C) Diet: Regular Addtl Attending Provider Instructions: You were admitted for a low heart rate with some lightheadedness/dizziness. The legislative director saw you and felt that his could be a normal heart rate for you and the vomiting could have caused your heart rate to go lower. He does not feel that you need a pacemaker at this time. It is possible that the Exelon patch could be contributing to your lower heart rate, so if you have episodes of lightheadedness/dizziness in the future you should talk to your primary care doctor about stopping this. A discharge summary will be sent to your primary care physician to ensure continuity of care. Please bring this discharge summary with you to your next office appointment so that your provider can review it at that time. Follow-up appointments: We have requested a follow-up appointment with your primary care physician within one week of discharge. Please call their office if you do not hear from them. Medications: Your medication list has been reviewed and reconciled upon discharge to ensure accuracy and continuity of care. An updated list of all your medications is included with your hospital discharge paperwork. CONTACT YOUR PRIMARY CARE PROVIDER if you experience any of the following: More episodes of lightness/dizziness Difficulty following your treatment plan, or difficulty taking medications Pending Studies at Discharge: No Stand-Alone Forms: [employer], Smoking Cessation Medications and DC Order Prescriptions: Continued acetaminophen [Acetaminophen Extra Strength] 500 mg tablet 500 mg PO Q6H PRN (Reason: pain) Qty: 90 0RF calcium carbonate 600 mg calcium (1,500 mg) tablet 600 mg PO BID Qty: 60 5RF magnesium 200 mg tablet 400 mg PO DAILY Qty: 60 5RF apixaban 2.5 mg tablet 2.5 mg PO BID Qty: 180 3RF cholecalciferol (vitamin D3) 50 mcg (2,000 unit) capsule 50 mcg PO DAILY Qty: 90 3RF rivastigmine [Exelon Patch] 13.3 mg/24 hour patch 24 hour 13.3 mg transdermal DAILY Qty: 30 2RF (DME) blood pressure test kit-medium Kit See Rx Instructions .Route Qty: 1 0RF Rx Instructions: As directed alendronate 70 mg tablet 70 mg PO WK Rx Instructions: TAKES ON SUNDAYS Discharge Orders: Discharge Order (Routine); Ordered 09/04/22 Ordered By: Bea Sutton Admission Data Admit Date/Time: 09/03/22 13:29 Attending Provider: Clifford Patrick Admit Provider: Tres Em Primary Care Provider: Tres Baires Other Providers: Tres Em ; Lico De Los Santos Other Interventions: Discharge Summary Assessment (RN) Last Done: 09/04/22 15:09 Supervising Physician Co-Signing Physician Notes Attending attestation Pt seen and examined in concert with Dr. Sutton. In agreement with the documented findings as noted in the resident documentation with any exceptions or additions as noted here. No further recurrence of symptoms and on further report denies substantial vomiting ("more like spitting up, and only a little"). Daughter at bedside also reports no other significant episodes, though may have had something more mild with vomiting last year. On examination, S1/S2 nl, bradycardia, no MCG. CTAB. Abd NT/ND BS+ve Near syncope with chronic bradycardia in the setting of AF - cardio consult - agree w/ cardiology re: rarity of these episodes and exogenous triggers. Consider changing Exelon patch but for now will maintain and monitor closely with precautions for recurrent symptoms and no further addition of medications. Counseling provided with patient and daughter (psychiatrist) re: ongoing triggers and the need for further evaluation. Else see resident documentation as noted. total attending physician time spent with this patient's care on the day of discharge: 40 minutes. Resident Activity Tracking Resident Involvement: Resident Care Provided Care Provided: [facility]
--- NOTE | 2022-09-04 16:37 | Cardiology Consultation ---
Date of Consultation September 04, 2022 Assessment & Plan (1) Bradycardia: (2) Near syncope: (3) Atrial fibrillation: (4) Apical variant hypertrophic cardiomyopathy: (5) Mitral valve insufficiency: Plan 1. Near syncope: This seems likely related to increased vagal tone. This is likely the mechanism for her associated bradycardia. While she did have a remote episode of syncope, she generally does not have symptoms of dizziness or lightheadedness. 2. Bradycardia: She did have some episodes of bradycardia around the time of her initial evaluation. This was in the setting of several episodes of emesis. I think the 2 are likely related. She did undergo outpatient monitoring last year which did not demonstrate significant bradycardia. I think this was likely situational not customer retention representative of declining conduction disease. Given the circumstantial nature of her symptoms I do not believe she requires a permanent pacemaker. 3. Atrial fibrillation: Permanent. In the past she has been on some beta concerns of bradycardia. No current rate control medication required. On systemic anticoagulation appropriately dosed for her weight and age. 4. Apical variant hypertrophic cardiomyopathy: No symptoms. I do not believe this requires any specific treatment. No ventricular arrhythmias identified. Low risk for sudden . 5. Valvular heart disease: Mitral and aortic regurgitation. Preserved LV systolic function. Patient apparently had a reaction to Aricept in the past. She is currently on rivastigmine. This medication has a better side effect profile when delivered in a transdermal fashion, but still has the potential for causing bradycardia an d syncope. Her daughter did not seem to think there was a marked improvement in her cognitive function. Continuing this medication can be discussed with her primary care physician. History of Present Illness Reason for Consultation: Bradycardia Requesting Physician: Herman Attending Physician: Cliffrod Patrick MD History of Present Illness The patient is an 87-year-old woman with a history of permanent atrial fibrillation, apical hypertrophy and remote syncope who was witnessed by family members to have a presyncopal episode while attending [employer]. Patient has lit tle recollection of the event. Her daughter was present for today's interview and with some prompting had some recollection of what happened and how she ended up in the hospital. However, she was quite forgetful in most of the history was obtained from the chart and the daughter. His seems that the patient was standing at [employer] when she began to feel somewhat weak. She was able to sit down and according to family members were present became slightly less responsive. She never lost consciousness and did have a small amount of vomit. He several physicians who were on site reported a heart rate that was low. The patient was transported to the hospital and was noted to have several episodes of emesis in route and during her early evaluation. She was noted to have an element of bradycardia around that time. She did not lose consciousness at any point. ER staff recommended overnight observation. The patient apparently agreed. Patient did not endorse symptoms of dizziness or lightheadedness recently. She denied feeling poorly up until yesterday morning. Again, she had some difficulty remembering these events. She claims to be an active individual who was able to perform all of her routine activities without symptoms. No history of palpitations. No breathing difficulty. She does not recall the remote episode of syncope. Allergies Allergy/AdvReac Type Severity Reaction Status Date / Time donepezil AdvReac Mild Nausea Verified 09/03/22 11:15 risedronate sodium AdvReac Unknown Unknown Verified 09/03/22 11:15 [From [facility] Home Medications Medication Instructions Recorded Confirmed Type acetaminophen 500 mg tablet 500 mg PO Q6H PRN pain #90 tabs 09/18/19 09/03/22 Rx (Acetaminophen Extra Strength) calcium carbonate 600 mg calcium 600 mg PO BID #60 tabs 02/07/21 09/03/22 Rx (1,500 mg) tablet magnesium 200 mg tablet 400 mg PO DAILY #60 tabs 02/08/21 09/03/22 Rx apixaban 2.5 mg tablet 2.5 mg PO BID #180 tabs 06/27/21 09/03/22 Rx cholecalciferol (vitamin D3) 50 50 mcg PO DAILY #90 caps 02/13/22 09/03/22 Rx mcg (2,000 unit) capsule rivastigmine 13.3 mg/24 hour 13.3 mg transdermal DAILY #30 ea 04/25/22 09/03/22 Rx transdermal patch (Exelon Patch) alendronate 70 mg tablet 70 mg PO WK 04/26/22 09/03/22 History blood pressure test kit-medium #1 ea 05/04/22 07/27/22 Rx Patient History Medical History Arthritis Atrial fibrillation Carpal tunnel syndrome Cervical arthritis Cervical facet syndrome Chest discomfort CKD (chronic kidney disease), stage III Edema Hand pain Hypertension Hypertension Left atrial enlargement Left atrial thrombus Macrocytosis Mitral valve insufficiency, acquired Osteoporosis Osteoporosis Permanent atrial fibrillation Poison vanessa dermatitis Tricuspid regurgitation Vitamin D deficiency Surgical History H/O colonoscopy H/O ligation of vein History of facelift History of tonsillectomy and adenoidectomy Family History Family/Other ASCVD (arteriosclerotic cardiovascular disease) Brother , Age 58 Stroke Brother , Age 71 Stroke Denies family history of Ovarian cancer Prostate cancer Myocardial infarction Breast cancer Colorectal cancer Social History Smoking Status: Never smoker Second Hand Exposure: No; Hx Alcohol Use: No Hx Substance Use: No Preferred Language: Portuguese Communication Ability: Effective Visual Impairment: No Limitations Hearing Ability: Normal Infusion Therapy Nurse Required: No Beliefs That Will Affect Care: None marital status: / Current Living Situation: Other Current Living Situation Comment: Assistive Living current occupational status: retired How many Children do You have: 5 Feels Safe at Home: Yes Childhood Exposure to Second-Hand Smoke: No caffeine: Yes during the past year weight has: remained stable Dental Care, Regularly: Yes Physical Activity Frequency: Daily Seatbelt Use: always Sunscreen Use: Yes Assistive Devices: Glasses Review of Systems Review of Systems: Per HPI. Currently feeling well and anxious to be discharged. Physical Exam Physical Exam: She is alert and oriented x3. Mood affect appear normal. She answered all questions appropriately. HEENT: Sclerae are anicteric. Pupils are equal and reactive to light and accommodation. Extraocular movements were intact. Neuro: Cranial nerves intact Lungs: Lungs are clear to auscultation bilaterally. There are no rales wheezes or rhonchi. She has normal respiratory effort without use of accessory muscles. There is normal pulmonary excursion. Cardiac: The rhythm was irregular. S1 and S2 were normal. Holosystolic murmur. The PMI was not markedly displaced on palpation. Extremities: Patient has bilateral radial pulses that are equal in intensity. There is no evidence cyanosis or clubbing. There was no evidence of significant peripheral edema bilaterally. Skin: There are no rashes noted on examination today. Results & Data ([facility]) Vital Signs (Past 12 Hours) Vital Signs Temp Pulse Pulse Resp BP Pulse Ox O2 Del Method 09/04/22 15:09 36.4 C L 77 16 144/75 H 97 09/04/22 11:00 36.4 C L 77 16 144/75 H 97 Room Air 09/04/22 09:30 Room Air 09/04/22 08:00 36.5 C 59 L 15 161/73 H 96 Room Air 09/04/22 07:37 70 Laboratory Results Abnormal Lab Results 09/03/22 09/03/22 09/04/22 15:53 16:00 07:16 WBC 5.19 RBC 3.94 L Hgb 13.0 Hct 39.6 MCV 100.5 H MCH 33.0 MCHC 32.8 RDW Std Deviation 49.8 H RDW Coeff of Apple 13.4 Plt Count 144 MPV 10.3 Immature Gran % (Auto) 0.4 Neut % (Auto) 64.1 Lymph % (Auto) 22.0 [place] % (Auto) 11.6 Eos % (Auto) 1.3 Baso % (Auto) 0.6 Neut # (Auto) 3.33 Lymph # (Auto) 1.14 L [place] # (Auto) 0.60 H Eos # (Auto) 0.07 Baso # (Auto) 0.03 Immature Gran # (Auto) 0.02 Sodium Potassium Chloride Carbon Dioxide Anion Gap BUN Creatinine Est Cr Clr Drug Dosing Est GFR ( Amer) Est GFR (Non-Af Amer) BUN/Creatinine Ratio Glucose Calcium Troponin I High Sens 11.4 Urine Color Yellow Urine Appearance Clear Urine pH 6.5 Ur Specific Glenvil 1.020 Urine Protein Trace H Urine Glucose (UA) Negative Urine Ketones 1+ H Urine Blood Negative Urine Nitrite Negative Urine Bilirubin Negative Urine Urobilinogen Negative Ur Leukocyte Esterase 1+ H Urine WBC (Auto) 5-10 H Urine RBC (Auto) 0-4 U Hyaline Cast (Auto) 1-5 U Epithel Cells (Auto) >30 H Urine Bacteria (Auto) Negative 09/04/22 07:16 WBC RBC Hgb Hct MCV MCH MCHC RDW Std Deviation RDW Coeff of Apple Plt Count MPV Immature Gran % (Auto) Neut % (Auto) Lymph % (Auto) [place] % (Auto) Eos % (Auto) Baso % (Auto) Neut # (Auto) Lymph # (Auto) [place] # (Auto) Eos # (Auto) Baso # (Auto) Immature Gran # (Auto) Sodium 142 Potassium 4.3 Chloride 108 H Carbon Dioxide 31 Anion Gap 3 BUN 26 H Creatinine 1.10 Est Cr Clr Drug Dosing 29.0 Est GFR ( Amer) 51.5 Est GFR (Non-Af Amer) 44.5 BUN/Creatinine Ratio 23.6 H Glucose 102 H Calcium 8.8 Troponin I High Sens Urine Color Urine Appearance Urine pH Ur Specific Glenvil Urine Protein Urine Glucose (UA) Urine Ketones Urine Blood Urine Nitrite Urine Bilirubin Urine Urobilinogen Ur Leukocyte Esterase Urine WBC (Auto) Urine RBC (Auto) U Hyaline Cast (Auto) U Epithel Cells (Auto) Urine Bacteria (Auto) Diagnostic Findings Echocardiogram performed 04/27/2022: Normal LV systolic function. Apical hypertrophy. Severe left atrial dilation. Mild to moderate mitral regurgitation. Moderate aortic regurgitation. PG Care Time/CCT Total # of Minutes Spent Total Time Spent with Patient: Total time spent is greater than 50% in coordination of care (as documented) at patient's floor/unit and/or counseling patient: Coding Level of Care Code 03903 INT INP/OBS CARE 3/75MIN Diagnoses Bradycardia R00.1 Near syncope R55 Atrial fibrillation I48.21 Atrial fibrillation type: permanent Apical variant hypertrophic cardiomyopathy I42.2 Mitral valve insufficiency I34.0 Cardiac valve disease etiology: etiology unspecified (3) Atrial fibrillation Atrial fibrillation type: permanent Qualified Code(s): I48.21 - Permanent atrial fibrillation (5) Mitral valve insufficiency Cardiac valve disease etiology: etiology unspecified Qualified Code(s): I34.0 - Nonrheumatic mitral (valve) insufficiency
== END 2022-09-04 15:39 | disposition home or self-care (01) ==
LOC: EDINP 10:15 → ED 10:15 → SUATTDRO 13:29 → 2N 16:23
DX: R00.1 Bradycardia, unspecified; I42.2 Other hypertrophic cardiomyopathy; N18.30 Chronic kidney disease, stage 3 unspecified; I12.9 Hypertensive chronic kidney disease with stage 1 through stage 4 chronic kidney disease, or unspecified chronic kidney disease; R94.31 Abnormal electrocardiogram [ECG] [EKG]; R11.2 Nausea with vomiting, unspecified; R55 Syncope and collapse; I48.91 Unspecified atrial fibrillation; Z79.01 Long term (current) use of anticoagulants; Z79.899 Other long term (current) drug therapy; Z88.8 Allergy status to other drugs, medicaments and biological substances

== ENCOUNTER 2023-03-25 10:18 | Inpatient (IN) ==
[2023-03-25] MEDS ORDERED: ATROPINE SULFATE 0.1 MG/ML 10ML SYR IV STA (10:26)
[2023-03-25] MEDS ORDERED: ATROPINE SULFATE 0.1 MG/ML 5ML SYR IV ONE (10:27)
[2023-03-25] MEDS ORDERED: ONDANSETRON INJ 2 MG/ML 2 ML VIAL ONE (10:28)
[2023-03-25] MEDS ORDERED: SODIUM CHLORIDE 0.9% 500 ML IV SCH (10:30)
--- NOTE | 2023-03-25 10:44 | Emergency Department Note ---
Impression & Plan Symptomatic bradycardia, Atrial fibrillation, Nausea & vomiting, Dizziness ED Provider Note NAME: COOKIE MALDONADO AGE: 87 SEX: F : 1935 ARRIVES VIA: Ambulance INFORMANT: Patient, EMS ED PROVIDER(S): Ivan Zaldivar DO CHIEF COMPLAINT: Near syncope HPI: The patient is an 87-year-old female who has a history of atrial fibrillation who presented to the emergency department for an evaluation of dizziness and near syncope. The patient denies vertigo symptoms. [facility] [employer] when she had an episode where she nearly passed out. 911 was called and the patient arrived via ambulance. The patient was found to have severe bradycardia. The patient was treated with Zofran prior to arrival. There was no vomiting. The patient herself denies having any chest pain or difficulty breathing. She denies having any abdominal pain or back pain. The patient states that she takes no medications but does have a history of atrial fibrill ation. The patient states that she lives with her significant other. ROS: See above HPI for pertinent positives & negatives. A total of 10 systems reviewed and were otherwise negative. PAST MEDICAL HISTORY: See Below PAST SURGICAL HISTORY: See Below FAMILY HISTORY: See Below SOCIAL HISTORY: See Below HOME MEDICATIONS: See Below ALLERGIES: See Below VITALS: See Below PHYSICAL EXAMINATION: GENERAL: Patient is awake to verbal commands. Otherwise her eyes are closed. She appears somewhat listless. EYES: The conjunctivae are clear. The pupils are round and reactive. EARS, NOSE, MOUTH AND THROAT: The nose is without any evidence of any deformity. NECK: The neck is nontender and supple. RESPIRATORY: Normal respiratory effort is noted there is no evidence of wheezing rhonchi or rales CARDIOVASCULAR: Bradycardic and irregular heart sounds were noted to auscultat ion. There was a systolic murmur suggested. GASTROINTESTINAL: The abdomen was soft and mildly distended. There was diffuse tenderness to palpation but no guarding or rigidity. MUSCULOSKELETAL/EXTREMITIES: There is no evidence of gross deformity full range of motion is noted in the hips and shoulders. SKIN: There is no obvious evidence of any rash. There are no petechiae, pallor or cyanosis noted. NEUROLOGIC: Patient is awake to verbal commands. She is oriented to person place and situation. Strength was symmetric but diminished. MEDICAL DECISION MAKING: The patient is an 87-year-old female who presented to the emergency department by ambulance for an evaluation of near syncope. The patient was very dizzy and nauseated. The patient was experiencing generalized weakness. The patient had episodes of nausea vomiting. Her blood pressure was borderline initially and her pulse rate was dropping into the 20s. She was found to be in slow atrial fibrillation. She was not on any medications that would affect her rate that I could see on her initial medication review. She was treated with atropine initially. She was also treated with a small fluid bolus. Her condition continued to improve while she was in the emergency department. She did have some abdominal tenderness so CT of the abdomen and pelvis was obtained emergently to ensure there is no intra-abdominal process causing this presentation. I discussed the patient's laboratory and radiographic studies with her and her family members. I discussed this condition with the on-call [facility]ist. They have agreed to evaluate the patient in the emergency department for further management and disposition. Triage Nursing notes reviewed. Prior medical records reviewed Vital Signs: reviewed and remarkable for bradycardia and initial hypotension. Differential diagnosis: Vasovagal event, dehydration, infection, hypoglycemia, electrolyte abnormalities, cardiac sources, intracerebral event, pulmonary embolism, seizure, toxicologic, neurologic, as well as other pathologies. ER treatment provided: See below Diagnostics interpreted by me: ECG: EKG was obtained in the emergency department. My interpretation is atrial fibrillation at [address] depression with T wave inversions were noted. This was compared to a tracing from December 21, 2022. It was similar. A prehospital EKG was evaluated. This appears to be consistent with atrial fibrillation at [address] and T wave abnormalities were noted. It appears to compare favorably to the EKG obtained in the emergency department. Cardiac Monitoring: An order was placed for continuous cardiac monitoring. The monitor shows a rate of 45 bpm with bradycardic atrial fibrillation. Laboratory studies: As stated above and show below. Imaging studies: See below. Radiographic imaging was reviewed by myself Consultation(s): I discussed this case with Dr. Morgan who is on-call for the [facility]ist group. ED COURSE: Procedures: The transcutaneous pacemaker was placed on the patient while she was in the emergency department Critical Care: I have personally spent greater than 45 minutes of critical care time in the direct management of this patient. This includes bedside care, interpretation of diagnostic studies, and testing, discussion with consultants, patient, and family members, and other required patient management activities. This 45 minutes is in excess of all separately billable procedures. Past Med/Surg History Medical History Arthritis Atrial fibrillation Carpal tunnel syndrome Cervical arthritis Cervical facet syndrome Chest discomfort CKD (chronic kidney disease), stage III Edema Hand pain Hypertension Hypertension Left atrial enlargement Left atrial thrombus Macrocytosis Mitral valve insufficiency, acquired Osteoporosis Osteoporosis Permanent atrial fibrillation Poison vanessa dermatitis Tricuspid regurgitation Vitamin D deficiency Vomiting Surgical History H/O colonoscopy H/O ligation of vein History of facelift History of tonsillectomy and adenoidectomy Family History Family/Other ASCVD (arteriosclerotic cardiovascular disease) Brother , Age 58 Stroke Brother , Age 71 Stroke Denies family history of Ovarian cancer Prostate cancer Myocardial infarction Breast cancer Colorectal cancer Social History Smoking Status: Never smoker Second Hand Exposure: No; Do You Dip or Chew Tobacco: No; Hx Alcohol Use: No Hx Substance Use: No Preferred Language: Setswana Communication Ability: Effective Visual Impairment: No Limitations Hearing Ability: Normal Asparagus Buncher Required: No Beliefs That Will Affect Care: None marital status: / Current Living Situation: Other Current Living Situation Comment: Assistive Living current occupational status: retired How many Children do You have: 5 Feels Safe at Home: Yes Childhood Exposure to Second-Hand Smoke: No Diet: low salt caffeine: Yes during the past year weight has: remained stable Dental Care, Regularly: Yes Physical Activity Frequency: Daily Seatbelt Use: always Sunscreen Use: Yes Assistive Devices: Glasses Allergies Allergies Allergy/AdvReac Type Severity Reaction Status Date / Time donepezil AdvReac Mild Nausea Verified 11/30/22 09:40 risedronate sodium AdvReac Unknown Unknown Verified 11/30/22 09:40 [From Actonel] Home Meds Home Medications Medication Instructions Recorded Confirmed alendronate 70 mg tablet 70 mg PO WK 04/26/22 12/21/22 Previous Rx's Medication Instructions Recorded acetaminophen 500 mg tablet 500 mg PO Q6H PRN pain #90 tabs 09/18/19 (Acetaminophen Extra Strength) magnesium 200 mg tablet 400 mg PO DAILY #60 tabs 02/08/21 cholecalciferol (vitamin D3) 50 50 mcg PO DAILY #90 caps 02/13/22 mcg (2,000 unit) capsule rivastigmine 13.3 mg/24 hour 13.3 mg transdermal DAILY #30 ea 04/25/22 transdermal patch (Exelon Patch) blood pressure test kit-medium #1 ea 05/04/22 calcium carbonate 500 mg calcium 500 mg PO DAILY #90 tabs 11/30/22 (1,250 mg) chewable tablet (Calcium 500) apixaban 2.5 mg tablet 2.5 mg PO BID #180 tabs 12/21/22 Results & Data (ED) Vital Signs Vital Signs - 24 hr 03/25/23 10:33 03/25/23 10:37 03/25/23 10:37 Temperature 37.2 C Temperature Source Oral Pulse Rate 29 L 42 L Pulse Rate from SpO2 Sensor Pulse Rhythm Regular Pulse Strength Normal Respiratory Rate 18 Respiratory Effort / Characteristics Non-Labored Respiratory Depth Normal Respiratory Pattern Regular Blood Pressure Blood Pressure Mean Pulse Oximetry 94 94 Oxygen Delivery Method Room Air Room Air Oxygen Flow Rate Sepsis Recent Fever Within 48 Hours No Sepsis New/Unexplained Change in Mental Status No Sepsis Action Taken by Nursing No Action Required 03/25/23 10:30 03/25/23 10:50 03/25/23 10:56 Temperature Temperature Source Pulse Rate 43 L 55 L 53 L Pulse Rate from SpO2 Sensor 52 L Pulse Rhythm Pulse Strength Respiratory Rate 21 22 17 Respiratory Effort / Characteristics Respiratory Depth Respiratory Pattern Blood Pressure 96/58 L 117/50 L Blood Pressure Mean 70 72 Pulse Oximetry 95 99 97 Oxygen Delivery Method Room Air Oxygen Flow Rate Sepsis Recent Fever Within 48 Hours Sepsis New/Unexplained Change in Mental Status Sepsis Action Taken by Nursing 03/25/23 11:00 03/25/23 11:05 03/25/23 11:10 Temperature Temperature Source Pulse Rate 50 L 48 L 53 L Pulse Rate from SpO2 Sensor 52 L 54 L Pulse Rhythm Pulse Strength Respiratory Rate 19 18 18 Respiratory Effort / Characteristics Respiratory Depth Respiratory Pattern Blood Pressure 110/46 L 107/47 L 109/44 L Blood Pressure Mean 67 67 65 Pulse Oximetry 99 98 Oxygen Delivery Method Oxygen Flow Rate Sepsis Recent Fever Within 48 Hours Sepsis New/Unexplained Change in Mental Status Sepsis Action Taken by Nursing 03/25/23 11:15 03/25/23 11:30 03/25/23 11:35 Temperature Temperature Source Pulse Rate 51 L 50 L Pulse Rate from SpO2 Sensor 51 L Pulse Rhythm Pulse Strength Respiratory Rate 14 18 Respiratory Effort / Characteristics Respiratory Depth Respiratory Pattern Blood Pressure 111/47 L 107/49 L 113/46 L Blood Pressure Mean 68 68 68 Pulse Oximetry 98 Oxygen Delivery Method Nasal Cannula Oxygen Flow Rate 2 Sepsis Recent Fever Within 48 Hours Sepsis New/Unexplained Change in Mental Status Sepsis Action Taken by Nursing 03/25/23 11:46 03/25/23 12:15 03/25/23 12:30 Temperature Temperature Source Pulse Rate 52 L 40 L 45 L Pulse Rate from SpO2 Sensor 53 L 39 L Pulse Rhythm Pulse Strength Respiratory Rate 16 7 L 16 Respiratory Effort / Characteristics Respiratory Depth Respiratory Pattern Blood Pressure 94/52 L 94/45 L 140/51 L Blood Pressure Mean 66 61 80 Pulse Oximetry 98 97 98 Oxygen Delivery Method Room Air Oxygen Flow Rate Sepsis Recent Fever Within 48 Hours Sepsis New/Unexplained Change in Mental Status Sepsis Action Taken by [facility] Medications Current Medication List: was personally reviewed by me Laboratory Data Attestation: I reviewed the patient's lab results. 03/25/23 10:29 03/25/23 10:29 Lab Results 03/25/23 03/25/23 03/25/23 Range/Units 10:29 10:29 10:29 WBC 5.14 (4.8-10.8) K/ul RBC 3.99 L (4.20-5.40) M/uL Hgb 13.4 (12.0-16.0) g/dl Hct 39.7 (37.0-47.0) % MCV 99.5 (80.0-100.0) fL MCH 33.6 (25.0-34.0) pg MCHC 33.8 (32.0-36.0) g/dL RDW Std Deviation 49.2 H (36.4-46.3) fL RDW Coeff of Apple 13.3 (11.5-14.5) % Plt Count 145 (130-400) K/uL MPV 10.6 (9.4-12.4) fL Immature Gran % (Auto) 0.2 % Neut % (Auto) 66.5 % Lymph % (Auto) 22.0 % [place] % (Auto) 9.7 % Eos % (Auto) 1.2 % Baso % (Auto) 0.4 % Neut # (Auto) 3.42 (1.40-6.50) K/uL Lymph # (Auto) 1.13 L (1.20-3.40) K/uL [place] # (Auto) 0.50 (0.11-0.59) K/uL Eos # (Auto) 0.06 (0.00-0.50) K/uL Baso # (Auto) 0.02 (0.00-0.20) K/uL Immature Gran # (Auto) 0.01 (0.01-0.20) K/uL PT 11.6 (9.0-12.0) Seconds INR 1.1 (0.9-1.1) APTT 24.2 (21.0-31.0) Seconds PTT Ratio 0.9 Sodium 138 (136-145) mmol/L Potassium 4.1 (3.5-5.1) mmol/L Chloride 108 H (98-107) mmol/L Carbon Dioxide 24 (21-32) mmol/L Anion Gap 6 (3-11) BUN 32 H (6-23) mg/dl Creatinine 1.01 (0.6-1.2) mg/dl Est Cr Clr Drug Dosing Not Reportable Est GFR ( Amer) 57.2 ml/min Est GFR (Non-Af Amer) 49.3 ml/min BUN/Creatinine Ratio 31.7 H (10-20) Glucose 146 H (70-99(Fasting)) mg/dl Calcium 8.7 (8.6-10.3) mg/dl Magnesium 2.0 (1.7-2.4) mg/dl Total Bilirubin 1.3 H (0.2-1.0) mg/dl AST 37 (13-39) U/L ALT 21 (7-52) U/L Alkaline Phosphatase 49 (34-104) U/L Total Creatine Kinase 140 (26-192) U/L Troponin I High Sens 10.3 (0-14) pg/ml Total Protein 7.1 (6.0-8.3) gm/dl Albumin 3.9 (3.4-5.0) gm/dl Globulin 3.2 (2.5-4.0) gm/dl Albumin/Globulin Ratio 1.2 (0.9-2) Lipase 29 (11-82) U/L TSH (0.300-4.500) uIu/ml Free T4 (0.61-1.60) ng/dl SARS-CoV-2, RNA, NAAT (NEGATIVE) 03/25/23 03/25/23 Range/Units 10:29 12:35 WBC (4.8-10.8) K/ul RBC (4.20-5.40) M/uL Hgb (12.0-16.0) g/dl Hct (37.0-47.0) % MCV (80.0-100.0) fL MCH (25.0-34.0) pg MCHC (32.0-36.0) g/dL RDW Std Deviation (36.4-46.3) fL RDW Coeff of Apple (11.5-14.5) % Plt Count (130-400) K/uL MPV (9.4-12.4) fL Immature Gran % (Auto) % Neut % (Auto) % Lymph % (Auto) % [place] % (Auto) % Eos % (Auto) % Baso % (Auto) % Neut # (Auto) (1.40-6.50) K/uL Lymph # (Auto) (1.20-3.40) K/uL [place] # (Auto) (0.11-0.59) K/uL Eos # (Auto) (0.00-0.50) K/uL Baso # (Auto) (0.00-0.20) K/uL Immature Gran # (Auto) (0.01-0.20) K/uL PT (9.0-12.0) Seconds INR (0.9-1.1) APTT (21.0-31.0) Seconds PTT Ratio Sodium (136-145) mmol/L Potassium (3.5-5.1) mmol/L Chloride (98-107) mmol/L Carbon Dioxide (21-32) mmol/L Anion Gap (3-11) BUN (6-23) mg/dl Creatinine (0.6-1.2) mg/dl Est Cr Clr Drug Dosing Est GFR ( Amer) ml/min Est GFR (Non-Af Amer) ml/min BUN/Creatinine Ratio (10-20) Glucose (70-99(Fasting)) mg/dl Calcium (8.6-10.3) mg/dl Magnesium (1.7-2.4) mg/dl Total Bilirubin (0.2-1.0) mg/dl AST (13-39) U/L ALT (7-52) U/L Alkaline Phosphatase (34-104) U/L Total Creatine Kinase (26-192) U/L Troponin I High Sens (0-14) pg/ml Total Protein (6.0-8.3) gm/dl Albumin (3.4-5.0) gm/dl Globulin (2.5-4.0) gm/dl Albumin/Globulin Ratio (0.9-2) Lipase (11-82) U/L TSH 5.388 H (0.300-4.500) uIu/ml Free T4 1.00 (0.61-1.60) ng/dl SARS-CoV-2, RNA, NAAT NEGATIVE (NEGATIVE) Administered Medications Discontinued Medications Atropine Sulfate (Atropine Sulfate 0.1 Mg/Ml 10ml Syr) 0.5 mg IV NOW STA Stop: 03/25/23 10:27 Last Admin: 03/25/23 10:31 Dose: 0.5 mg Documented By: RAHUL Atropine Sulfate (Atropine Sulfate 0.1 Mg/Ml 5ml Syr) Confirm Administered Dose 0.5 mg IV .STK-MED ONE Stop: 03/25/23 10:28 Last Admin: 03/25/23 10:31 Dose: Not Given Documented By: RAHUL Sodium Chloride (Nss) 500 mls @ 999 mls/hr IV .Q31M ALBAN Stop: 03/25/23 11:00 Last Infusion: 03/25/23 11:53 Dose: 0 mls/hr Documented By: Admin: 03/25/23 10:32 Dose: 999 mls/hr Documented By: RAHUL Pantoprazole Sodium 40 mg/ (Syringe) 10 mls @ 5 mls/min IV NOW STA Stop: 03/25/23 12:18 Last Admin: 03/25/23 12:31 Dose: 5 mls/min Documented By: ARABELLA Ondansetron HCl (Ondansetron Inj 2 Mg/Ml 2 Ml Vial) Confirm Administered Dose 4 mg .ROUTE .STK-MED ONE Stop: 03/25/23 10:29 Last Admin: 03/25/23 12:42 Dose: Not Given Documented By: MT Imaging Data Attestation: I personally reviewed and interpreted this imaging study as follows: My Impression: 1 view chest x-ray was obtained in the emergency department. My interpretation is cardiomegaly, no free air, final report below. Radiologist's Impression: Chest X-Ray 03/25/23 10:22 XR chest 1V portable HISTORY: syncope COMPARISON: Chest 09/03/2022. FINDINGS: No pneumothorax. No pleural effusions. The heart remains mildly enlarged. Left basilar linear densities consistent with subsegmental atelectasis or scarring. This remains unchanged. No new focal lung consolidations. No evidence for pulmonary edema. Calcified plaque seen within the thoracic aorta. Mild dextroscoliosis of the thoracic spine. IMPRESSION: No significant change compared to the prior study. No acute process. ACT 112: Negative or not required by law. Electronically signed by: Obey Spence M.D. 03/25/2023 11:46 AM Abdomen/Pelvis CT 03/25/23 10:[address] WITHOUT CONTRAST CT DOSE: 1041.44 mGy.cm HISTORY: syncope TECHNIQUE: Multiaxial CT images of the abdomen and pelvis were performed without contrast. A dose lowering technique was utilized adhering to the principles of ALARA. COMPARISON STUDY: Abdomen and pelvis CT 07/26/2016. FINDINGS: Mild dependent changes seen at the lung bases. No pneumoperitoneum. No pneumatosis. No acute fractures identified. The heart is mildly enlarged. There is mild thickening at the distal esophagus. Calcified granuloma within the right hepatic lobe. Otherwise, the unenhanced liver, gallbladder, spleen, adrenal glands, pancreas, and kidneys are unremarkable. No renal stones or hydronephrosis. Calcified plaque within the normal caliber abdominal aorta. No retroperitoneal or pelvic lymphadenopathy. No pelvic free fluid. The bladder is decompressed. This likely accounts for the bladder wall thickening. The uterus and bilateral adnexa are unremarkable. Suboptimal evaluation for bowel pathology due to the lack of intravenous and oral contrast. However, there is no definite bowel wall thickening or obstruction. Colonic diverticulosis. No evidence for acute diverticulitis. Questionable thickening of the colon is likely due to underdistention. [id number] fecal retention is noted. IMPRESSION: 1. No bowel wall thickening or obstruction. 2. Colonic diverticulosis. No evidence for acute diverticulitis. 3. Mild distal esophageal wall thickening. This suggests an esophagitis. 4. Stable cardiomegaly. 5. Bladder wall thickening is likely due to underdistention. ACT 112: Negative or not required by law. Electronically signed by: Obey Spence M.D. 03/25/2023 11:[address] 03/25/23 10:[address] DOSE: HISTORY: syncope TECHNIQUE: Multiaxial CT images of the head were performed without the use of intravenous contrast. Automated exposure control was utilized for this study. A dose lowering technique was utilized adhering to the principles of ALARA. Comparison: Head CT 09/03/2022. Findings: The paranasal sinuses and mastoid air cells are clear. The calvarium and skull base are intact. There is no mass, hematoma, midline shift, acute infarct. White matter hypodensity is nonspecific but suggestive of microvascular ischemic change. The ventricles and sulci demonstrate mild age-related involutional changes. Impression: No acute intracranial abnormality. Atrophy and microvascular ischemic changes. ACT 112: Negative or not required by law. Electronically signed by: Obey Spence M.D. 03/25/2023 11:25 AM Discharge Plan Visit Data Chief Complaint: Syncope (Near Syncope) ED Provider: Ivan Zaldivar Discharge Problem: Symptomatic bradycardia, Atrial fibrillation, Nausea & vomiting, Dizziness Patient Disposition: Being Evaluated by Hospitalist Forms Stand Alone Forms: [facility] Prescriptions Prescriptions: No Action acetaminophen [Acetaminophen Extra Strength] 500 mg tablet 500 mg PO Q6H PRN (Reason: pain) Qty: 90 0RF magnesium 200 mg tablet 400 mg PO DAILY Qty: 60 5RF cholecalciferol (vitamin D3) 50 mcg (2,000 unit) capsule 50 mcg PO DAILY Qty: 90 3RF rivastigmine [Exelon Patch] 13.3 mg/24 hour patch 24 hour 13.3 mg transdermal DAILY Qty: 30 2RF (DME) blood pressure test kit-medium Kit See Rx Instructions .Route Qty: 1 0RF Rx Instructions: As directed calcium carbonate [Calcium 500] 500 mg calcium (1,250 mg) tablet,chewable 500 mg PO DAILY Qty: 90 0RF apixaban 2.5 mg tablet 2.5 mg PO BID Qty: 180 3RF alendronate 70 mg tablet 70 mg PO WK Rx Instructions: TAKES ON SUNDAYS Referrals Referrals: PCP,NO [Physician] -
[2023-03-25 10:46] LABS: Basophils # (auto) 0.02 K/uL (0.00-0.20); Basophils % (auto) 0.4 %; Eosinophils # (auto) 0.06 K/uL (0.00-0.50); Eosinophils % (auto) 1.2 %; Hematocrit (blood only) 39.7 % (37.0-47.0); Hemoglobin 13.4 g/dl (12.0-16.0); Immature Granulocytes # (auto) 0.01 K/uL (0.01-0.20); Immature Granulocytes % (auto) 0.2 %; Lymphocytes # (auto) 1.13 K/uL (1.20-3.40); Mean Corpuscular Hemoglobin 33.6 pg (25.0-34.0); Mean Corpuscular Hgb Conc 33.8 g/dL (32.0-36.0); Mean Corpuscular Volume 99.5 fL (80.0-100.0); Mean Platelet Volume 10.6 fL (9.4-12.4); Monocytes % (auto) 9.7 %; Neutrophils # (auto) 3.42 K/uL (1.40-6.50); Neutrophils % (auto) 66.5 %; Platelet Count 145 K/uL (130-400); RDW Coefficient of Variation 13.3 % (11.5-14.5); RDW Standard Deviation 49.2 fL (36.4-46.3); Red Blood Count 3.99 M/uL (4.20-5.40); White Blood Count 5.14 K/ul (4.8-10.8)
[2023-03-25 11:14] LABS: Alanine Aminotransferase 21 U/L (7-52); Albumin Globulin Ratio 1.2 (0.9-2); Albumin Level 3.9 gm/dl (3.4-5.0); Alkaline Phosphatase 49 U/L (34-104); Anion Gap 6 (3-11); BUN Creatinine Ratio 31.7 (10-20); Bilirubin,Total 1.3 mg/dl (0.2-1.0); Blood Urea Nitrogen 32 mg/dl (6-23); Calcium 8.7 mg/dl (8.6-10.3); Carbon Dioxide 24 mmol/L (21-32); Chloride 108 mmol/L (98-107); Creatine Kinase 140 U/L (26-192); Est GFR (African American) 57.2 ml/min; Est GFR (Non-African American) 49.3 ml/min; Globulin 3.2 gm/dl (2.5-4.0); Glucose 146 mg/dl (70-99(Fasting)); Lipase 29 U/L (11-82); Sodium 138 mmol/L (136-145); Total Protein 7.1 gm/dl (6.0-8.3); Troponin I High Sensitivity 10.3 pg/ml (0-14)
[2023-03-25 11:21] LABS: INR 1.1 (0.9-1.1); Partial Thromboplastin Ratio 0.9; Partial Thromboplastin Time 24.2 Seconds (21.0-31.0); Prothrombin Time 11.6 Seconds (9.0-12.0)
[2023-03-25 11:26] LABS: Thyroid Stimulating Hormone 5.388 uIu/ml (0.300-4.500)
--- NOTE | 2023-03-25 11:26 | CT Scan Report ---
HEAD CT NONCONTRAST CT DOSE: HISTORY: syncope TECHNIQUE: Multiaxial CT images of the head were performed without the use of intravenous contrast. A utomated exposure control was utilized for this study. A dose lowering technique was utilized adheri ng to the principles of ALARA. Comparison: Head CT 09/03/2022. Findings: The paranasal sinuses and mastoid air cells are clear. The calvarium and skull base are int act. There is no mass, hematoma, midline shift, acute infarct. White matter hypodensity is nonspecifi c but suggestive of microvascular ischemic change. The ventricles and sulci demonstrate mild age-rela eliseo involutional changes. Impression: No acute intracranial abnormality. Atrophy and microvascular ischemic changes. ACT 112: Negative or not required by law. Electronically signed by: Obey Spence M.D. 03/25/2023 11:25 AM
--- NOTE | 2023-03-25 11:32 | CT Scan Report ---
ABDOMEN AND PELVIS CT WITHOUT CONTRAST CT DOSE: 1041.44 mGy.cm HISTORY: syncope TECHNIQUE: Multiaxial CT images of the abdomen and pelvis were performed without contrast. A dose lo wering technique was utilized adhering to the principles of ALARA. COMPARISON STUDY: Abdomen and pelvis CT 07/26/2016. FINDINGS: Mild dependent changes seen at the lung bases. No pneumoperitoneum. No pneumatosis. No acut e fractures identified. The heart is mildly enlarged. There is mild thickening at the distal esophagu s. Calcified granuloma within the right hepatic lobe. Otherwise, the unenhanced liver, gallbladder, s pleen, adrenal glands, pancreas, and kidneys are unremarkable. No renal stones or hydronephrosis. Jay cified plaque within the normal caliber abdominal aorta. No retroperitoneal or pelvic lymphadenopathy . No pelvic free fluid. The bladder is decompressed. This likely accounts for the bladder wall thicke cassie. The uterus and bilateral adnexa are unremarkable. Suboptimal evaluation for bowel pathology due to the lack of intravenous and oral contrast. However, there is no definite bowel wall thickening or obstruction. Colonic diverticulosis. No evidence for acute diverticulitis. Questionable thickening o f the colon is likely due to underdistention. [id number] fecal retention is noted. IMPRESSION: 1. No bowel wall thickening or obstruction. 2. Colonic diverticulosis. No evidence for acute diverticulitis. 3. Mild distal esophageal wall thickening. This suggests an esophagitis. 4. Stable cardiomegaly. 5. Bladder wall thickening is likely due to underdistention. ACT 112: Negative or not required by law. Electronically signed by: Obey Spence M.D. 03/25/2023 11:30 AM
[2023-03-25 11:39] LABS: Potassium 4.1 mmol/L (3.5-5.1)
[2023-03-25 11:45] LABS: Aspartate Aminotransferase 37 U/L (13-39)
--- NOTE | 2023-03-25 11:47 | XRay Report ---
XR chest 1V portable HISTORY: syncope COMPARISON: Chest 09/03/2022. FINDINGS: No pneumothorax. No pleural effusions. The heart remains mildly enlarged. Left basilar line ar densities consistent with subsegmental atelectasis or scarring. This remains unchanged. No new foc al lung consolidations. No evidence for pulmonary edema. Calcified plaque seen within the thoracic ao rta. Mild dextroscoliosis of the thoracic spine. IMPRESSION: No significant change compared to the prior study. No acute process. ACT 112: Negative or not required by law. Electronically signed by: Obey Spence M.D. 03/25/2023 11:46 AM
--- NOTE | 2023-03-25 12:15 | History & Physical Report ---
Date of Service March 25, 2023 Assessment & Plan (1) Atrial fibrillation with slow ventricular response: Plan: Suspect secondary to vasovagal response to nausea Rivastigmine is not a new medication so unlikely the cause of acute slow ventricular response but should be discontinued irregardless as making episode more likely. Similar intermittent slow ventricular response presentation in August as a result vasovagal response from nausea; mild esophagitis on CT on this occasion Atropine 1mg IV PRN for sustained HR < 30 (call provider if used) Aim Mg >= 2, K >= 4 Hold anticoagulation pending need for pacemaker decision Consult cardiology (2) Near syncope: Plan: Suspect secondary to bradycardia as above (3) Osteoporosis: Plan: Continue alendronate, mild esophagitis noted on CT but not per history, no indication to stop this Plan VTE Prophylaxis - restart Eliquis depending on pacemaker decision Diet - regular Disposition - admit to PCU Admission and Anticipated Discharge Date Admission Date: March 25, 2023 History of Present Illness Chief Complaint: Presyncope Primary Care Provider: Tracy [facility] [place] Shruthi Hdez is an 87 year old female who presents to the ER with pre syncope and bradycardia. She and her family report very similar to her hospitalization in August. She did not have anything to eat this morning and felt nauseous following having her morning tablets on an empty stomach and going to [employer]. Ems were called when she nearly passed out and found to have bradycardia while in atrial fibrillation. Allergies Allergy/AdvReac Type Severity Reaction Status Date / Time donepezil AdvReac Mild Nausea Verified 03/25/23 15:52 risedronate sodium AdvReac Unknown Unknown Verified 03/25/23 15:52 [From Actonel] Home Medications Medication Instructions Recorded Confirmed Type acetaminophen 500 mg tablet 500 mg PO Q6H PRN pain #90 tabs 09/18/19 03/25/23 Rx (Acetaminophen Extra Strength) cholecalciferol (vitamin D3) 50 50 mcg PO DAILY #90 caps 02/13/22 03/25/23 Rx mcg (2,000 unit) capsule rivastigmine 13.3 mg/24 hour 13.3 mg transdermal DAILY #30 ea 04/25/22 03/25/23 Rx transdermal patch (Exelon Patch) alendronate 70 mg tablet 70 mg PO WK 04/26/22 03/25/23 History blood pressure test kit-medium #1 ea 05/04/22 12/21/22 Rx calcium carbonate 500 mg calcium 500 mg PO DAILY #90 tabs 11/30/22 03/25/23 Rx (1,250 mg) chewable tablet (Calcium 500) apixaban 2.5 mg tablet 2.5 mg PO BID #180 tabs 12/21/22 03/25/23 Rx magnesium 200 mg tablet 200 mg PO DAILY 03/25/23 03/25/23 History Past Med/Surg History Medical History Arthritis Atrial fibrillation Carpal tunnel syndrome Cervical arthritis Cervical facet syndrome Chest discomfort CKD (chronic kidney disease), stage III Edema Hand pain Hypertension Hypertension Left atrial enlargement Left atrial thrombus Macrocytosis Mitral valve insufficiency, acquired Osteoporosis Osteoporosis Permanent atrial fibrillation Poison vanessa dermatitis Tricuspid regurgitation Vitamin D deficiency Vomiting Surgical History H/O colonoscopy H/O ligation of vein History of facelift History of tonsillectomy and adenoidectomy Family History Family/Other ASCVD (arteriosclerotic cardiovascular disease) Brother , Age 58 Stroke Brother , Age 71 Stroke Denies family history of Ovarian cancer Prostate cancer Myocardial infarction Breast cancer Colorectal cancer Social History Smoking Status: Never smoker Second Hand Exposure: No; Do You Dip or Chew Tobacco: No; Hx Alcohol Use: No Hx Substance Use: No Preferred Language: Cymraes Communication Ability: Effective Visual Impairment: No Limitations Hearing Ability: Normal Certified Forklift Operator Required: No Beliefs That Will Affect Care: None marital status: / Current Living Situation: Other Current Living Situation Comment: assisted living-[facility] current occupational status: retired How many Children do You have: 5 Other Information That Helps Us Care for You: No Feels Safe at Home: Yes Safety Concerns: Feels Safe At This Time Childhood Exposure to Second-Hand Smoke: No Diet: low salt caffeine: Yes during the past year weight has: remained stable Dental Care, Regularly: Yes Physical Activity Frequency: Daily Seatbelt Use: always Sunscreen Use: Yes Assistive Devices: None Review of Systems Review of Systems: All systems reviewed & are unremarkable except as noted in HPI & below Physical Exam Constitutional: WD/WN, vitals as above Eyes: PERRL, conjunctivae normal, anicteric sclerae EOM intact bilaterally ENMT: external ear and nose normal, oropharynx normal Respiratory: normal respiratory effort, lungs clear to auscultation Cardiovascular: Rate/Rhythm: + bradycardic and + irregularly irregular Heart Sounds: no murmur Extremities: normal capillary refill; no calf tenderness and no pedal edema Gastrointestinal (Abdomen): normal bowel sounds, soft, nontender, no hepatosplenomegaly Musculoskeletal: no cyanosis or clubbing, extremities motor strength 5/5 Skin: no rashes, warm and dry Neurologic: moves all extremities and awake; no focal motor deficits and not confused Motor/Sensory: no sensory deficit Cranial Nerves: PERRL, EOM intact bilaterally and normal facial strength Psychiatric: A+Ox3, euthymic affect Results & Data Results & Data Vital Signs (Past 12 Hours) Vital Signs Temp Pulse Resp BP Pulse Ox O2 Del Method O2 Flow Rate 03/25/23 11:46 52 L 16 94/52 L 98 03/25/23 11:35 113/46 L 03/25/23 11:30 50 L 18 107/49 L 03/25/23 11:15 51 L 14 111/47 L 98 Nasal Cannula 2 03/25/23 11:10 53 L 18 109/44 L 98 03/25/23 11:05 48 L 18 107/47 L 03/25/23 11:00 50 L 19 110/46 L 99 03/25/23 10:56 53 L 17 117/50 L 97 Room Air 03/25/23 10:50 55 L 22 99 03/25/23 10:30 43 L 21 96/58 L 95 03/25/23 10:37 94 Room Air 03/25/23 10:37 37.2 C 42 L 18 94 Room Air 03/25/23 10:33 29 L Laboratory Results Abnormal lab results 03/25/23 03/25/23 03/25/23 Range/Units 10:29 10:29 10:29 RBC 3.99 L (4.20-5.40) M/uL RDW Std Deviation 49.2 H (36.4-46.3) fL Lymph # (Auto) 1.13 L (1.20-3.40) K/uL Chloride 108 H (98-107) mmol/L BUN 32 H (6-23) mg/dl BUN/Creatinine Ratio 31.7 H (10-20) Glucose 146 H (70-99(Fasting)) mg/dl Total Bilirubin 1.3 H (0.2-1.0) mg/dl TSH 5.388 H (0.300-4.500) uIu/ml Diagnostic Findings HEAD CT NONCONTRAST CT DOSE: HISTORY: syncope TECHNIQUE: Multiaxial CT images of the head were performed without the use of intravenous contrast. Automated exposure control was utilized for this study. A dose lowering technique was utilized adhering to the principles of ALARA. Comparison: Head CT 09/03/2022. Findings: The paranasal sinuses and mastoid air cells are clear. The calvarium and skull base are intact. There is no mass, hematoma, midline shift, acute infarct. White matter hypodensity is nonspecific but suggestive of microvascular ischemic change. The ventricles and sulci demonstrate mild age-related involutional changes. Impression: No acute intracranial abnormality. Atrophy and microvascular ischemic changes. XR chest 1V portable HISTORY: syncope COMPARISON: Chest 09/03/2022. FINDINGS: No pneumothorax. No pleural effusions. The heart remains mildly enlarged. Left basilar linear densities consistent with subsegmental atelectasis or scarring. This remains unchanged. No new focal lung consolidations. No evidence for pulmonary edema. Calcified plaque seen within the thoracic aorta. Mild dextroscoliosis of the thoracic spine. IMPRESSION: No significant change compared to the prior study. No acute process. ABDOMEN AND PELVIS CT WITHOUT CONTRAST CT DOSE: 1041.44 mGy.cm HISTORY: syncope TECHNIQUE: Multiaxial CT images of the abdomen and pelvis were performed without contrast. A dose lowering technique was utilized adhering to the principles of ALARA. COMPARISON STUDY: Abdomen and pelvis CT 07/26/2016. FINDINGS: Mild dependent changes seen at the lung bases. No pneumoperitoneum. No pneumatosis. No acute fractures identified. The heart is mildly enlarged. There is mild thickening at the distal esophagus. Calcified granuloma within the right hepatic lobe. Otherwise, the unenhanced liver, gallbladder, spleen, adrenal glands, pancreas, and kidneys are unremarkable. No renal stones or hydronephrosis. Calcified plaque within the normal caliber abdominal aorta. No retroperitoneal or pelvic lymphadenopathy. No pelvic free fluid. The bladder is decompressed. This likely accounts for the bladder wall thickening. The uterus and bilateral adnexa are unremarkable. Suboptimal evaluation for bowel pathology due to the lack of intravenous and oral contrast. However, there is no definite bowel wall thickening or obstruction. Colonic diverticulosis. No evidence for acute diverticulitis. Questionable thickening of the colon is likely due to underdistention. [id number] fecal retention is noted. IMPRESSION: 1. No bowel wall thickening or obstruction. 2. Colonic diverticulosis. No evidence for acute diverticulitis. 3. Mild distal esophageal wall thickening. This suggests an esophagitis. 4. Stable cardiomegaly. 5. Bladder wall thickening is likely due to underdistention. Medications Administered ER Medications Given: Atropine 0.5mg IV Normal saline 500ml bolus ECG Rate (beats per minute): 37 Rhythm: atrial fibrillation (with slow ventricular response) Findings: + T-wave inversion (Lateral) Comparison ECG Date: from (December 21, 2022) Change: the following changes noted (TWI more eviednt in lateral leads, Ventricular rate decreased by 21) Code Status & VTE Plan Code Status Full VTE Prophylaxis Plan VTE Prophylaxis will be ordered: Yes PG Care Time/CCT Total # of Minutes Spent Total Time Spent with Patient: Total time spent is greater than 50% in coordination of care (as documented) at patient's floor/unit and/or counseling patient: Coding Level of Care Code 21446 INT INP/OBS CARE 3/75MIN Diagnoses Atrial fibrillation with slow ventricular response I48.91 Near syncope R55 Osteoporosis M81.0
[2023-03-25] MEDS ORDERED: PANTOprazole 40 MG in SYRINGE 0 ML IV STA (12:17)
--- NOTE | 2023-03-25 12:55 | Electrocardiogram Report ---
Test Reason : Blood Pressure : / mmHG Vent. Rate : 037 BPM Atrial Rate : 000 BPM P-R Int : 000 ms QRS Dur : 094 ms QT Int : 560 ms P-R-T Axes : 000 022 147 degrees QTc Int : 439 ms Atrial fibrillation with slow ventricular response Left ventricular hypertrophy with repolarization abnormality Septal infarct , age undetermined Abnormal ECG When compared with ECG of 21-DEC-2022 15:19, (unconfirmed) Vent. rate has decreased BY 21 BPM T wave inversion more evident in Lateral leads Confirmed by Ivan Malone ([id number]) on 03/25/2023 12:55:34 PM Referred By: REFERRED SELF Confirmed By:Ivan Malone
[2023-03-25] MEDS ORDERED: ATROPINE SULFATE 0.1 MG/ML 5ML SYR IV PRN (14:50)
[2023-03-25] MEDS ORDERED: ACETAMINOPHEN 325 MG TAB PO PRN (14:50)
[2023-03-25 15:58] LABS: iSTAT Creatinine 1.1 mg/dl (0.6-1.3); iSTAT Hemoglobin 13.6 g/dl (12.0-16.0); iSTAT Ionized Calcium 1.14 mmol/l (1.12-1.32); iSTAT Potassium 4.8 mmol/L (3.3-5.0)
[2023-03-25] MEDS ORDERED: PNEUMOCOCCAL POLYSACCHARIDES 25 MCG/0.5 ML VIAL/SYR IM ONE (16:13)
--- NOTE | 2023-03-26 07:40 | Hospitalist Progress Note ---
Date of Service March 26, 2023 Assessment & Plan (1) Atrial fibrillation with slow ventricular response: Plan: 87 y/o female with a PMHx of a. fib, dementia, and osteoporosis presented with symptomatic bradycardia, nausea, and pre-syncopal episode admitted for observation and further workup. #A. fib with slow ventricular response #Presyncope #Bradycardia Presumed to be secondary to vasovagal response to nausea - similar episode in August. EKG with a. fib with slow ventricular response. Bradycardia responded well to atropine. 1 mg IV Atropine PRN for sustained HR <30 (call provider if used) Mg > 2, K > 4 replete as indicated Cards on board - appreciate recs NPO @ midnight for pacer placement 03/27 #Esophagitis Mild esophagitis seen on CT. Pantoprazole 40 mg QD Zofran PRN #JJ Creatinine bumped to 1.23 from 1.01. Possibly in the setting of decreased cardiac output with bradycardia. Will continue to monitor #Dementia Patient on rivastigmine patch for dementia. Not a new med so likely not the precipitating factor. Does lower the threshold for bradycardia. Would discontinue this medication. #Osteoporosis Continue alendronate, mild esophagitis noted on CT but not per history, no indication to stop this Code status: full DVT ppx: heparin, holding Eliquis, SCDs FENGI: regular Dispo: PCU (2) Osteoporosis: Admission and Anticipated Discharge Date Admission Date: March 25, 2023 Subjective Patient seen at bedside this AM. No complaints. Review of Systems Review of Systems: See HPI Physical Exam Physical Exam: Gen: well appearing elderly female in NAD HEENT: AT NC Resp: CTAB no wheezing no increased work of breathing CV: bradycardic, regular rhythm, no edema, 2+ peripheral pulses, clinically well perfused Abd: +BS soft, non-tender, non-distended, no masses or HSM Skin: no rashes or bruising noted Neuro: alert, oriented to person - pleasantly demented Psych: appropriate mood and affect MSK: no obvious deformities Results & Data Results & Data Vital Signs (Past 12 Hours) Vital Signs Temp Pulse Pulse Resp BP Pulse Ox O2 Del Method 03/26/23 07:24 46 L 03/26/23 06:52 36.7 C 51 L 17 104/58 L 96 Room Air 03/26/23 03:30 36.6 C 49 L 12 91/58 L 92 Room Air 03/26/23 00:06 36.4 C L 49 L 12 86/52 L 96 Room Air 03/25/23 23:20 50 L Laboratory Results 03/25/23 10:29 03/26/23 10:58 Resident Activity Tracking Resident Involvement: Resident Care Provided Care Provided: Adult [facility] Medicine
[2023-03-26] MEDS ORDERED: PANTOprazole 40 MG TAB PO SCH (09:00)
--- NOTE | 2023-03-26 09:37 | Cardiology Consultation ---
Date of Consultation March 26, 2023 Assessment & Plan (1) Atrial fibrillation with slow ventricular response: (2) Current use of longwall foreman anticoagulation: Plan 1. Syncope and presyncope: Patient with previous episode of syncope (04/25/2022) and presyncope (09/03/2022). She was on Rivastigmine patch, an acetylcholinesterase inhibitor which sides effect include bradycardia and syncope. Hold on this admission. Heart rate on telemetry downs to 40s with pauses of more than 3s. Patient will benefit for a pacemaker placement due to symptomatic bradycardia. Dr. De Los Santos consulted for possible pacemaker tomorrow. Will start her on heparin bolus due to her hx of left atrium thrombus for today. Patient on NPO at midnight. 2. Atrial fibrillation with slow ventricular response: Patient on permanent atrial fibrillation, asymptomatic. Currently on no rate control medications. 3.Anticoagulation: Patient on reduced dose of Eliquis due to weight and her age. Currently on Hold. Will start heparin today for preparation for possible pacemaker due to history of left atrial thrombus. Supervising Physician Co-Signing Physician Notes Patient seen and examined with Dr. Hines. Agree with her assessment and plan. Recurrent syncope and presyncope. Has been off topical rivastigmine x24 hours and is still bradycardic and having 3.5 second pauses. Likely needs a permanent pacemaker. Dr. De Los Santos will meet with her later today. History of Present Illness Attending Physician: Wesley Plata DO History of Present Illness Shruthi Hdez is an 87 year old female with PMH of permanent atrial fibrillation, apical hypertrophy and dementia. Here after presyncopal episode while attending the [facility] yesterday. Found to be bradycardia by EM. Patient had nothing to eat yesterday morning and felt nauseous following her morning tablets on a empty stomach. Heart rate down to 20s. She did not fall or loose consciousness. She denied chest pain, palpitations or SOB. Similar episode in August, thought to be side effect of Rivastigmine and increased vagal tone. ECG on ER: Atrial fibrillation with slow ventricular response. Patient evaluated today, found disoriented to place, in no acute distress. Patient's son in the room, he explained this is the second episode of bradycardia and presyncope after taking pills on a empty stomach. [facility] No previous symptoms of dizziness or lightheaded. Allergies Allergy/AdvReac Type Severity Reaction Status Date / Time donepezil AdvReac Mild Nausea Verified 03/25/23 15:52 risedronate sodium AdvReac Unknown Unknown Verified 03/25/23 15:52 [From Actonel] Home Medications Medication Instructions Recorded Confirmed Type acetaminophen 500 mg tablet 500 mg PO Q6H PRN pain #90 tabs 09/18/19 03/25/23 Rx (Acetaminophen Extra Strength) cholecalciferol (vitamin D3) 50 50 mcg PO DAILY #90 caps 02/13/22 03/25/23 Rx mcg (2,000 unit) capsule alendronate 70 mg tablet 70 mg PO WK 04/26/22 03/25/23 History blood pressure test kit-medium #1 ea 05/04/22 12/21/22 Rx calcium carbonate 500 mg calcium 500 mg PO DAILY #90 tabs 11/30/22 03/25/23 Rx (1,250 mg) chewable tablet (Calcium 500) apixaban 2.5 mg tablet 2.5 mg PO BID #180 tabs 12/21/22 03/25/23 Rx magnesium 200 mg tablet 200 mg PO DAILY 03/25/23 03/25/23 History Patient History Medical History (Updated 03/26/23 @ 10:00 by Paulino Hammonds MD) Apical variant hypertrophic cardiomyopathy Arthritis Atrial fibrillation Carpal tunnel syndrome Cervical arthritis Cervical facet syndrome Chest discomfort CKD (chronic kidney disease), stage III Edema Hand pain Hypertension Hypertension Left atrial enlargement Left atrial thrombus Macrocytosis Mitral valve insufficiency, acquired Osteoporosis Osteoporosis Permanent atrial fibrillation Poison vanessa dermatitis Tricuspid regurgitation Vitamin D deficiency Vomiting Surgical History H/O colonoscopy H/O ligation of vein History of facelift History of tonsillectomy and adenoidectomy Family History Family/Other ASCVD (arteriosclerotic cardiovascular disease) Brother , Age 58 Stroke Brother , Age 71 Stroke Denies family history of Ovarian cancer Prostate cancer Myocardial infarction Breast cancer Colorectal cancer Social History Smoking Status: Never smoker Second Hand Exposure: No; Do You Dip or Chew Tobacco: No; Hx Alcohol Use: No Hx Substance Use: No Preferred Language: Azeri Communication Ability: Effective Visual Impairment: No Limitations Hearing Ability: Normal Perpetual Inventory Clerk Required: No Beliefs That Will Affect Care: None marital status: / Current Living Situation: Other Current Living Situation Comment: assisted living-[facility] current occupational status: retired How many Children do You have: 5 Other Information That Helps Us Care for You: No Feels Safe at Home: Yes Safety Concerns: Feels Safe At This Time Childhood Exposure to Second-Hand Smoke: No Diet: low salt caffeine: Yes during the past year weight has: remained stable Dental Care, Regularly: Yes Physical Activity Frequency: Daily Seatbelt Use: always Sunscreen Use: Yes Assistive Devices: Walker Review of Systems Review of Systems: as per HPI Physical Exam Constitutional: WD/WN, vitals as above well developed and cooperative Respiratory: normal respiratory effort, lungs clear to auscultation Cardiovascular: Rate/Rhythm: + bradycardic and + irregularly irregular Heart Sounds: no murmur Extremities: normal capillary refill; no edema Gastrointestinal (Abdomen): normal bowel sounds, soft, nontender, no hepatosplenomegaly Musculoskeletal: no cyanosis or clubbing, extremities motor strength 5/5 Neurologic: move all extremities and awake, no focal deficits Psychiatric: Orientation: alert, oriented to person, oriented to place and cooperative; + not oriented to time Results & Data Vital Signs (Past 12 Hours) Vital Signs Temp Pulse Pulse Resp BP Pulse Ox O2 Del Method 03/26/23 07:24 46 L 03/26/23 06:52 36.7 C 51 L 17 104/58 L 96 Room Air 03/26/23 03:30 36.6 C 49 L 12 91/58 L 92 Room Air 03/26/23 00:06 36.4 C L 49 L 12 86/52 L 96 Room Air 03/25/23 23:20 50 L PG Care Time/CCT Total # of Minutes Spent Total Time Spent with Patient: Total time spent is greater than 50% in coordination of care (as documented) at patient's floor/unit and/or counseling patient: Coding Level of Care Code 93944 INT INP/OBS CARE 3/75MIN Diagnoses Atrial fibrillation with slow ventricular response I48.91 Current use of custodial anticoagulation Z79.01 Resident Activity Tracking Resident Involvement: Resident Care Provided Care Provided: Adult Hospital Medicine
[2023-03-26] MEDS ORDERED: Heparin IV Adult Wt-Based Standard WITH Bolus Protocol IV STA (10:12)
[2023-03-26] MEDS ORDERED: HEPARIN SOD (PORCINE) 1000 UNIT/ML IV ONE ×2 (10:28→10:45)
[2023-03-26] MEDS ORDERED: Heparin IV Adult Wt-Based Standard WITH Bolus Protocol IV SCH (10:30)
[2023-03-26] MEDS ORDERED: HEPARIN SODIUM/DEXTROSE 25,000 UNITS/500 ML BAG IV SCH (10:45)
[2023-03-26 11:49] LABS: BUN Creatinine Ratio 22.8 (10-20); Creatinine Clr Calc Pharmacy 27.9 ml/min; Est GFR (Non-African American) 38.9 ml/min; Potassium 4.2 mmol/L (3.5-5.1)
--- NOTE | 2023-03-26 18:12 | Discharge Summary ---
Date of Service March 26, 2023 Admission HPI Per Admitting Provider Shruthi Hdez is an 87 year old female who presents to the ER with presyncope and bradycardia. She and her family report very similar to her hospitalization in August. She did not have anything to eat this morning and felt nauseous following having her morning tablets on an empty stomach and going to religious. Ems were called when she nearly passed out and found to have bradycardia while in atrial fibrillation. Admission Exam Per Admitting Provider Constitutional: WD/WN, vitals as above Eyes: PERRL, conjunctivae normal, anicteric sclerae EOM intact bilaterally ENMT: external ear and nose normal, oropharynx normal Respiratory: normal respiratory effort, lungs clear to auscultation Cardiovascular: Rate/Rhythm: + bradycardic and + irregularly irregular Heart Sounds: no murmur Extremities: normal capillary refill; no calf tenderness and no pedal edema Gastrointestinal (Abdomen): normal bowel sounds, soft, nontender, no hepatosplenomegaly Musculoskeletal: no cyanosis or clubbing, extremities motor strength 5/5 Skin: no rashes, warm and dry Neurologic: moves all extremities and awake; no focal motor deficits and not confused Motor/Sensory: no sensory deficit Cranial Nerves: PERRL, EOM intact bilaterally and normal facial strength Psychiatric: A+Ox3, euthymic affect Principal Diagnosis bradycardia Discharge Exam Constitutional: well-appearing, no acute distress HEENT: NCAT, no conjunctival injection CV: bradycardic, regular rhythm, no murmur appreciated, extremities well- perfused, no LE edema Resp: CTABL, no wheezes/rales/rhonchi appreciated, no increased work of breathing GI: soft, nondistended, nontender MSK: no gross deformities appreciated Skin: warm, dry, no rash appreciated Neuro: alert, oriented, no focal neurologic deficit appreciated Discharge Data Allergies Allergy/AdvReac Type Severity Reaction Status Date / Time donepezil AdvReac Mild Nausea Verified 03/25/23 15:52 risedronate sodium AdvReac Unknown Unknown Verified 03/25/23 15:52 [From Actonel] Consultations 03/25/23 10:58 Consult Cardiology Stat 03/25/23 11:59 ED Decision to Admit Stat Ordered Studies Chest X-Ray 03/25/23 10:22 FINDINGS: No pneumothorax. No pleural effusions. The heart remains mildly enlarged. Left basilar linear densities consistent with subsegmental atelectasis or scarring. This remains unchanged. No new focal lung consolidations. No evidence for pulmonary edema. Calcified plaque seen within the thoracic aorta. Mild dextroscoliosis of the thoracic spine. IMPRESSION: No significant change compared to the prior study. No acute process. Abdomen/Pelvis CT 03/25/23 10:[address] WITHOUT CONTRAST FINDINGS: Mild dependent changes seen at the lung bases. No pneumoperitoneum. No pneumatosis. No acute fractures identified. The heart is mildly enlarged. There is mild thickening at the distal esophagus. Calcified granuloma within the right hepatic lobe. Otherwise, the unenhanced liver, gallbladder, spleen, adrenal glands, pancreas, and kidneys are unremarkable. No renal stones or hydronephrosis. Calcified plaque within the normal caliber abdominal aorta. No retroperitoneal or pelvic lymphadenopathy. No pelvic free fluid. The bladder is decompressed. This likely accounts for the bladder wall thickening. The uterus a nd bilateral adnexa are unremarkable. Suboptimal evaluation for bowel pathology due to the lack of intravenous and oral contrast. However, there is no definite bowel wall thickening or obstruction. Colonic diverticulosis. No evidence for acute diverticulitis. Questionable thickening of the colon is likely due to underdistention. [id number] fecal retention is noted. IMPRESSION: 1. No bowel wall thickening or obstruction. 2. Colonic diverticulosis. No evidence for acute diverticulitis. 3. Mild distal esophageal wall thickening. This suggests an esophagitis. 4. Stable cardiomegaly. 5. Bladder wall thickening is likely due to underdistention. Head CT 03/25/23 10:25 Findings: The paranasal sinuses and mastoid air cells are clear. The calvarium and skull base are intact. There is no mass, hematoma, midline shift, acute infarct. White matter hypodensity is nonspecific but suggestive of microvascular ischemic change. The ventricles and sulci demonstrate mild age-related involutional changes. Impression: No acute intracranial abnormality. Atrophy and microvascular ischemic changes. Hospital Course (1) Atrial fibrillation with slow ventricular response: 87 y/o female with a PMHx of a. fib, dementia, and osteoporosis presented with symptomatic bradycardia, nausea, and pre-syncopal episode admitted for observation and further workup now stable for discharge back to [facility]. #A. fib with slow ventricular response #Presyncope #Bradycardia Presumed to be secondary to vasovagal response to nausea - similar episode in August. CT Head negative for acute process. EKG with a. fib with slow ventricular response. Bradycardia responded well to atropine. Cardiology consulted for possible pacemaker placement. Patient and family elected to hold off on pacemaker placement at this time as patient is doing well. #Esophagitis Mild esophagitis seen on CT. Pantoprazole 40 mg QD. #JJ Creatinine bumped to 1.23 from 1.01. Possibly in the setting of decreased cardiac output with bradycardia. Would recommend outpatient CMP in a few days. #Dementia Patient on rivastigmine patch for dementia. Not a new med so likely not the precipitating factor. Does lower the threshold for bradycardia. Would discontinue this medication. #Osteoporosis Continue alendronate, mild esophagitis noted on CT but not per history, no indication to stop this. (2) Osteoporosis: Total Time Total Time Spent Total Time Spent (In Minutes): <30 Discharge Plan Discharge Items Patient Disposition: Transfer [facility] Reason For Visit: BRADYCARDIA, A FIB, PRESYNCOPE Discharge Diagnosis: bradycardia, a fib Activity: Per Instructions section Non-emergency contact: Primary Care Provider and Cut [employer] Set Up Operator Call non-emergency contact if: you have any medication questions and your symptoms worsen Follow-up/Referrals: Tracy thomasPlankinton [Primary Care Provider] - Diet: Regular Addtl Attending Provider Instructions: You were admitted to the hospital for symptomatic bradycardia - your heart was beating too slowly. This was likely in the setting of nausea/dizziness from taking medication on an empty stomach. You recovered well after administration of atropine. We did discuss the idea of pacemaker placement. With shared decision making we decided to hold off on placement for now. You were stable for discharge home with close follow up. Make sure to take your medications with food to help avoid this type of reaction. A discharge summary will be sent to your primary care physician to ensure continuity of care. Please bring this discharge summary with you to your next office appointment so that your provider can review it at that time. Follow-up appointments: We have requested a follow-up appointment with your primary care physician within one week of discharge. Please call their office if you do not hear from them. Keep all your follow-up appointments as already scheduled. If you cannot make an appointment, notify your provider. Medications: Your medication list has been reviewed and reconciled upon discharge to ensure accuracy and continuity of care. An updated list of all your medications is included with your hospital discharge paperwork. Please review this list cl osely, and make note of any changes. We stopped your rivastigmine patch as this can lower the threshold for bradycardia (slow heart rate). Do not restart this medication. Hospital Course: 87 y/o female with a PMHx of a. fib, dementia, and osteoporosis presented with symptomatic bradycardia, nausea, and pre-syncopal episode admitted for observation and further workup now stable for discharge back to [facility]. #A. fib with slow ventricular response #Presyncope #Bradycardia Presumed to be secondary to vasovagal response to nausea - similar episode in August. EKG with a. fib with slow ventricular response. Bradycardia responded well to atropine. Cardiology consulted for possible pacemaker placement. Patient and family elected to hold off on pacemaker placement at this time as patient is doing well. #Esophagitis Mild esophagitis seen on CT. Pantoprazole 40 mg QD. #JJ Creatinine bumped to 1.23 from 1.01. Possibly in the setting of decreased cardiac output with bradycardia. Would recommend outpatient CMP in a few days. #Dementia Patient on rivastigmine patch for dementia. Not a new med so likely not the precipitating factor. Does lower the threshold for bradycardia. Would discontinue this medication. #Osteoporosis Continue alendronate, mild esophagitis noted on CT but not per history, no indication to stop this Pending Studies at Discharge: No Stand-Alone Forms: My Embrane, Smoking Cessation Skilled Items Patient informed of condition?: Yes DNR: No Discharge Level of Care: Skilled Communicable Disease: No Discharge Prognosis: Stable Lines: None Urinary Catheter: No Medications and DC Order Prescriptions: Continued acetaminophen [Acetaminophen Extra Strength] 500 mg tablet 500 mg PO Q6H PRN (Reason: pain) Qty: 90 0RF cholecalciferol (vitamin D3) 50 mcg (2,000 unit) capsule 50 mcg PO DAILY Qty: 90 3RF (DME) blood pressure test kit-medium Kit See Rx Instructions .Route Qty: 1 0RF Rx Instructions: As directed calcium carbonate [Calcium 500] 500 mg calcium (1,250 mg) tablet,chewable 500 mg PO DAILY Qty: 90 0RF apixaban 2.5 mg tablet 2.5 mg PO BID Qty: 180 3RF alendronate 70 mg tablet 70 mg PO WK Rx Instructions: TAKES ON Fridays magnesium 200 mg tablet 200 mg PO DAILY Discontinued rivastigmine [Exelon Patch] 13.3 mg/24 hour patch 24 hour 13.3 mg transdermal DAILY Qty: 30 2RF Discharge Orders: Discharge Order (Routine); Ordered 03/26/23 Ordered By: Shruthi Donato Admission Data Admit Date/Time: 03/25/23 12:04 Attending Provider: Wesley Plata Admit Provider: Johann Morgan Primary Care Provider: Tracy thomasPlankinton Other Providers: Ivan Malone ; Johann Morgan Other Interventions: Discharge Summary Assessment (RN) Last Done: 03/26/23 18:16 Supervising Physician Co-Signing Physician Notes I personally examined the patient and verified all butler points of history and exam, discussed case, and agree with decision making with Dr Donato after discussion with cardiology, family declined pacemaker at this time. Patient for home. Vitals noted, in general she is sleeping comfortably no distress. Breathing unlabored no accessory muscle use good effort. Skin shows no rashes no pallor or icterus. Presyncope/bradycardialikely related, family declined pacemaker at this time. Home, outpatient follow-up. Otherwise as above Resident Activity Tracking Resident Involvement: Resident Care Provided Care Provided: Adult Hospital Medicine
--- NOTE | 2023-03-26 18:54 | Billing Data ---
Date of Service March 26, 2023 Coding Level of Care Code 75410 IN/OBS DISCH 30 MIN/LESS
--- NOTE | 2023-03-29 14:54 | Coding Query ---
CODING QUERY To promote full compliance with coding requirements relating to patient care, provider participation is requested in all cases of mill manager uncertainty. Please assist us with the question(s) below: Please clarify the meaning of JJ. JJ is not a valid abbreviation. Thank you. ( x ) Acute Kidney Injury ( ) Acute Kidney Insufficiency ( ) Other (Specify): Principal Diagnosis: "that condition established after study, to be chiefly responsible for occasioning the admission of the patient to the hospital for care." Co-Existing Principal Diagnosis: "when two or more diagnoses equally meet the criteria for principal diagnosis as determined by the circumstances of admission, diagnostic work up, and/or therapy provided, and the Alphabetic Index, Tabular List, or another coding guideline does not provide sequencing direction, any one of the diagnoses may be sequenced first." "When the physician has documented what appears to be a current diagnosis in the body of the record, but has not included the diagnosis in the final diagnostic statement, the physician should be asked whether the diagnosis should be added." (Source Coding [facility] 2 QTR90. p3-4) MATTHEW
== END 2023-03-26 18:32 | disposition home or self-care (01) | DRG 312 ==
LOC: ED 10:18 → SUATTDRO 12:04 → 2S 12:04